=== PATIENT | male | born 1950 | race Caucasian/White ===

== ENCOUNTER → 2019-04-29 13:51 | Outpatient (BNVA) | payer MEDICARE, SELFPAY | PROVIDERS: PCP Physician Assistant; Visit Provider Nurse Practitioner | DX: G89.29 Other chronic pain (principal); M54.42 Lumbago with sciatica, left side; F17.210 Nicotine dependence, cigarettes, uncomplicated; Z79.891 Long term (current) use of opiate analgesic | CPT/HCPCS: 99213; 99214 ==

== ENCOUNTER 2019-07-08 16:40 | Emergency (ER) | payer MEDICARE, MEDICAID, SELFPAY ==
[2019-07-08 16:46] VITALS: BP 152/87; PULSE 68; RESP 16; TEMP 36.6; O2SAT 98; BMI 27.4
[2019-07-08 17:06] VITALS: O2SAT 97
--- NOTE | 2019-07-08 17:14 | ED_ITS ---
HPI - Anxiety General: Chief Complaint: Anxiety Stated Complaint: SOB/nausea Time Seen by Provider: 07/08/19 17:09 History of Present Illness: HPI narrative: Is a 68-year-old male who comes into the ED with anxiety and back pain. Patient's back pain is a chronic issue and is in his lower back. Patient said he has not taken anything for his back pain today. He is also complaining of feeling anxious and is reported having trouble getting sleep at night. His anxiousness started 4 days ago. Patient has been prescribed trazodone by his PCP to help him with sleep and he says that has not been working. He says he gets more anxious as he continues having trouble to get sleep at night. He says he paces around a lot at night and just does not feel tired. I asked him if he feels any worries or concerns or stress going on his life and he denied all of those. He says he is unsure what is making him feel anxious. Patient also reports feeling irritable. Associated symptoms: Deny chest pain, chills, fever(s), headache(s), nausea, palpitations or vomiting Review of Systems Const: Denies: fever, chills or fatigue Eyes: Denies: change in vision or eye discomfort ENMT: Denies: throat pain, painful swallowing, nasal discharge or nasal congestion Card: Denies: chest pain, palpitations, edema, swelling of feet/ankles, shortness of breath on exertion or shortness of breath when lying down Resp: Denies: shortness of breath, productive cough or non-productive cough GI: Denies: abdominal pain, nausea, vomiting, diarrhea, constipation or blood in stool : Denies: flank pain, difficulty urinating, painful urination or blood in urine Musc: Reports: back pain; Denies: neck pain or extremity swelling Skin/Breast: Denies: rash or new lesion Neuro: Denies: headache, numbness in extremities or weakness in extremities Psych: Reports: anxiety PFSH ED PFSH: Medical History Arthritis Chronic low back pain Long-term use of high-risk medication Continue to monitor use Tobacco abuse counselled to quit smoking Surgical History History of appendectomy History of spinal surgery 25 years ago l4/5 fusion per pt Family History Father Stroke Other Hypertension Social History Smoking and tobacco status: current some day smoker cigarettes [ Other cigarette details: 1 PK WEEK ] Alcohol intake: former Desire information about substance/drug rehabilitation?: No Physical Exam Narrative: EXAM NARRATIVE: Pt is a 68 y/o M that is sitting comfortably in the bed when I entered the room. He is showing no signs of acute respiratory distress or pain. Const: COMMON NORMALS: oriented x3 HENMT: COMMON NORMALS: normocephalic HEAD & SCALP: normocephalic MOUTH: oral and palatal mucosa normal THROAT: posterior oropharynx normal and uvula midline Neck/C-Spine: COMMON NORMALS: supple GENERAL: Yes normal visual inspection Resp: COMMON NORMALS: normal respiratory effort, no retractions, no use of accessory muscles and clear to auscultation bilaterally AUSCULTATION: clear to auscultation bilaterally Cardio: COMMON NORMALS: regular rate, regular rhythm, S1 normal heart sound, S2 normal heart sound, no gallops, no clicks, no murmurs and peripheral pulses 2+ throughout RATE: regular rate RHYTHM: regular rhythm HEART SOUNDS: S1 normal and S2 normal PERIPHERAL PULSES: pulses 2+ throughout GI: COMMON NORMALS: normal to inspection, nondistended, normoactive bowel sounds, soft to palpation, non-tender and no masses PALPATION: Yes soft : COMMON NORMALS: Yes no CVA tenderness BLADDER/KIDNEY EXAM: Yes no CVA tenderness Back/Pelvis: COMMON NORMALS: no CVA tenderness LUMBAR SPINE/LOWER BACK: Yes paraspinal muscle tenderness Extremity: COMMON NORMALS: normal to inspection Neuro: COMMON NORMALS: oriented x3 and moves all extremities Psych: COMMON NORMALS: mental status grossly normal, thought process normal and speech normal APPEARANCE: Yes grossly normal ATTITUDE: Yes calm ACTIVITY/MOTOR BEHAVIOR: Yes appropriate eye contact SPEECH: Yes normal speech THOUGHT PROCESS: normal thought process THOUGHT CONTENT: Yes normal thought content ATTENTION/CONCENTRATION: Yes attention grossly intact and Yes concentration grossly intact JUDGEMENT: judgment good Skin: COMMON NORMALS: no rashes or lesions noted GENERAL SKIN EXAM: no rashes or lesions noted and dry skin Course ED course: I spoke with patient about his current symptoms of anxiety and lack of sleep. I discussed with him that for the anxiety, exercise daily has been proven to help anxiety symptoms. I told him that since his anxiety is only started 4 days ago I'm hesitant to start him on any new medication. I told him if he continues to have anxiety component with his primary care doctor for possible medical management. For patient's sleep issues he is currently being prescribed trazodone to help with insomnia. I told him that I did not want to mess with his current medication and dose since other medications for sleep would put him at more risk for falls. I told him to contact his PCP tomorrow to discuss either stopping the trazodone dose or another medication management for his sleep issues. I told him I do not feel comfortable changing or adjusting his current sleep medication since I don't have appropriate follow-up with patient here in the ED. Patient understood and agreed with plan. Reevaluation(s): Reevaluation #1: After patient was given a dose of Toradol and Lorazepam I checked back in with him. Patient said his back pain has improved and his anxiety has improved. Vital Signs: Vital signs: Vital Signs Temperature 98 F 07/08/19 16:46 Pulse Rate 68 07/08/19 18:17 Respiratory Rate 17 07/08/19 18:17 Blood Pressure 126/74 07/08/19 18:17 Pulse Oximetry 97 07/08/19 18:17 Discharge Plan Discharge Patient Disposition: Home, Self-Care Clinical Impression: Acute anxiety Chronic low back pain Qualifiers: Back pain laterality: bilateral Sciatica presence: without sciatica Qualified Code(s): M54.5 - Low back pain Condition: Stable Prescriptions: No Action hydrocodone-acetaminophen 7.5-325 mg tablet 1 tab PO TID PRN (Reason: pain) 30 Days Qty: 90 RF: 0 methotrexate sodium 2.5 mg tablet 2.5 mg PO .COMPLEX RF: 0 folic acid 1 mg tablet 1 mg PO DAILY RF: 0 amlodipine 10 mg tablet 10 mg PO DAILY RF: 0 metoprolol succinate 50 mg capsule,sprinkle,ER 24hr 50 mg PO DAILY RF: 0 lisinopril 10 mg tablet 10 mg PO DAILY RF: 0 trazodone 50 mg Tablet 50 mg PO BEDTIME RF: 0 Discharge Orders: Discharge Order (Routine); Ordered 07/08/19 Ordered By: Quentin Kilgore Referrals: Loni Che PA [Primary Care Provider] - Discharge Diet: Regular Discharge Activity: Resume usual activity Patient Instructions: Anxiety (ED) Activity Restrictions/Additional Instructions: Follow-up with your PCP in 5 to 7 days reevaluation. I am not starting you on any new medications since you are already taking something for sleep that was prescribed by PCP. I recommend calling your PCP tomorrow and discussing the dosing of your trazodone. For anxiety daily exercise has been shown to really help with symptoms. Walking 20 to 30 minutes a day 4 to 5 days a week. Continue taking all home meds as previously prescribed. Discharge Date/Time: 07/08/19 18:22 Coding Level of Care Code ED Senior Financial Accountant for Ed Fwd Exam Comprehensive
[2019-07-08] MEDS: ketorolac 30 mg/mL INJ IVP (17:37)
[2019-07-08] MEDS: LORazepam 2 mg/mL INJ 1 mL 1 MG IVP (17:37)
[2019-07-08 18:17] VITALS: BP 126/74; PULSE 68; RESP 17; O2SAT 97
== END 2019-07-08 18:22 | disposition home or self-care (01) ==
PROVIDERS: Emergency Provider Physician Assistant; PCP Physician Assistant
DX: F41.9 Anxiety disorder, unspecified (principal); M54.5 Low back pain; F17.210 Nicotine dependence, cigarettes, uncomplicated
CPT/HCPCS: 12345; 96374; 96375; 99282; 99283; J1885; J2060

== ENCOUNTER 2019-08-30 13:58 | Outpatient (CLI) | payer MEDICARE, MEDICAID, SELFPAY ==
--- NOTE | 2019-08-30 14:06 | XR_ITS ---
WS: [id number] LUMBAR SPINE FLEXION AND EXTENSION TECHNIQUE: 3 views of the lumbar spine: Lateral neutral, flexion, and extension views. CLINICAL INFORMATION: POSTLAMINECTOMY SYNDROME COMPARISON: None. FINDINGS: Osteopenia. Aortic calcification. Prior postoperative changes pedicle screw fixation with dorsal inst rumentation at L4-S1. Interconnecting rods. No evidence of hardware loosening. Hardware appears gross ly intact. No instability on flexion-extension. XR/XR lumbar spine f/e only [id number] IMPRESSION: Prior postoperative changes pedicle screw fixation L4-S1 with dorsal interconne cting rods. No instability on flexion-extension.
== END 2019-08-30 13:59 | disposition home or self-care (01) ==
LOC: RADWPI 14:01
PROVIDERS: PCP Physician Assistant; Visit Provider Nurse Practitioner
DX: M96.1 Postlaminectomy syndrome, not elsewhere classified (principal)
CPT/HCPCS: 72120

== ENCOUNTER 2020-02-11 19:36 | Emergency (ER) | payer MEDICARE, MEDICAID, SELFPAY ==
[2020-02-11] VITALS (8 sets, daily range): BP systolic 123–179; BP diastolic 79–98; PULSE 68–82; RESP 13–24; TEMP 36.5; O2SAT 97–100; BMI 26.9
--- NOTE | 2020-02-11 19:46 | PC.NURSE ---
EKG done at 1947 and shown to ER doctor
--- NOTE | 2020-02-11 19:50 | XRR_ITS ---
PROCEDURE INFORMATION: Exam: XR Chest, 1 View Exam date and time: 02/11/2020 8:07 PM Age: 69 years old Clinical indication: Prior surgery; Surgery type: Appy, back; Patient HX: Chest pain, SOB, chills; Additional info: Cp TECHNIQUE: Imaging protocol: XR of the chest Views: 1 view. COMPARISON: CR Chest 1 [place] [id number] 02/02/2019 1:36 AM FINDINGS: Lungs: No consolidation. Pleural space: No pleural effusion. No pneumothorax. Heart/Mediastinum: No cardiomegaly. Vasculature: The thoracic aorta is mildly atherosclerotic. Bones/joints: Unremarkable. XR/XR chest 1V portable [id number] IMPRESSION: 1. No acute cardiopulmonary disease demonstrated. 2. There is no interval change from the prior examination.
--- NOTE | 2020-02-11 19:50 | ECG_ITS ---
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 Measurements Intervals [place] Rate: 70 P: 31 [place]: 197 QRS: 51 QRSD: 85 T: 73 QT: 378 QTc: 410 Interpretive Statements SINUS RHYTHM NONSPECIFIC T-WAVE ABNORMALITY Compared to ECG 02/11/2020 19:44:34 No significant changes Electronically Signed On 02-12-2020 22:08:04 CDT by Josie Meyer M.D. [id number]
[2020-02-11 20:07] LABS: Basophils % 0.3 %; Eosinophils % 0.2 %; Hematocrit 36.7 % (42.0-52.0); Hemoglobin 11.5 g/dL (11.7-16.6); Lymphocytes # 1.5 10^3/uL (0.8-4.8); Lymphocytes % 23.4 %; Mean Corpuscular HGB Conc 31.3 g/dL (30.0-36.0); Mean Corpuscular Hemoglobin 25.1 pg (28.0-34.0); Mean Platelet Volume 10.3 fL (7.4-10.4); Monocytes # 0.3 10^3/uL (0.2-0.9); Monocytes % 5.3 %; Neutrophils # 4.37 10^3/uL (1.8-7.7); Neutrophils % 70.6 %; Nucleated Red Blood Cells % 0 %; Platelet Count 327 10^3/cmm (130-400); Red Blood Count 4.59 10^6/uL (4.1-5.3); Red Cell Distribution Width 14.6 % (12.1-15.1); White Blood Count 6.2 10^3/uL (4.0-10.0)
[2020-02-11 20:30] LABS: Troponin(5th) Baseline 14 ng/L (0-15)
[2020-02-11 20:37] LABS: Alanine Aminotransferase 11 U/L (0-41); Albumin Level 4.1 g/dL (3.5-5.2); Alkaline Phosphatase 162 IU/L (40-130); Blood Urea Nitrogen 20 mg/dL (8-23); Calcium 8.8 mg/dL (8.5-10.5); Carbon Dioxide 21 mmol/L (22-29); Chloride 98 mmol/L (98-107); Creatine Phosphokinase 56 U/L (39-308); Globulin 3.4 g/dL (1.3-4.6); Glomerular Filtration Rate 43.1 mL/min (90-130); Glucose 141 mg/dL (65-115); NT Pro B Type Natriuretic Pept 50 pg/mL (0-125); Osmolality Calculated 281 mOsm/kg (285-295); Sodium 133 mmol/L (136-145); Total Bilirubin 0.4 mg/dL (0.15-1.2); Total Protein 7.5 g/dL (6.6-8.7)
[2020-02-11] MEDS: morphine 4 mg/mL SDV 1 mL IVP (20:38)
[2020-02-11] MEDS: ondansetron 2 mg/ML SDV 2 mL 4 MG IVP (20:39)
[2020-02-11 20:50] LABS: Anion Gap 18.4 (5-19); Aspartate Amino Transferase 23 U/L (0-40); Potassium 4.4 mmol/L (3.5-5.1)
--- NOTE | 2020-02-11 21:50 | ECG_ITS ---
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 Measurements Intervals [place] Rate: 78 P: 15 [place]: 176 QRS: 57 QRSD: 97 T: 68 QT: 369 QTc: 421 Interpretive Statements SINUS RHYTHM NONSPECIFIC T-WAVE ABNORMALITY Compared to ECG 02/02/2019 01:34:30 T-wave abnormality now present Electronically Signed On 02-11-2020 20:41:16 CDT by Shauna Gunter M.D. [id number]
--- NOTE | 2020-02-11 21:52 | PC.NURSE ---
EKG done at 2150 and shown to ER doctor
--- NOTE | 2020-02-12 00:28 | W.ED.CHESTPA ---
HPI - Chest Pain General: Chief Complaint: Chest Pain Stated Complaint: chest pain Time Seen by Provider: 02/11/20 19:47 History of Present Illness: HPI narrative: 69-year-old male presents with some chest discomfort. Mild shortness of breath. He has been nauseated and vomiting. He was here earlier in the day complaining of some anxiety. He states his chest pain started a few hours prior to arrival. He also notes that he stopped taking hydrocodone 2 days ago, which he took 4 times daily for quite some time prior. He wonders if some of the symptoms could be narcotic withdrawal. MD complaint: chest pain Onset (ago): hour(s) Timing of current episode: constant Prior episodes: Yes Onset: during rest Pain location: substernal Pain radiation: none Severity: moderate Quality: tightness and heaviness Relieving factors: nothing Exacerbating factors: nothing Associated symptoms: Reports abdominal pain, diaphoresis and vomiting; Deny dyspnea, fever(s) or palpitations Review of Systems Const: Reports: diaphoresis; Denies: fever(s) Eyes: Denies: change in vision ENMT: Denies: odynophagia, post nasal drip or sinus pain Card: Reports: chest pain; Denies: palpitations, irregular heart rhythm or edema Resp: Denies: dyspnea GI: Reports: abdominal pain and vomiting : Denies: difficulty urinating, dysuria or hematuria Musc: Denies: neck pain or joint warmth Skin/Breast: Denies: rash, pruritus or erythema Neuro: Denies: headache(s), dizziness, vertigo or seizure-like activity Psych: Denies: anxiety PFS ED PFSH: Medical History (Updated 02/11/20 @ 23:01 by Jamal Mcdonald DO) Arthritis Chronic low back pain Long-term use of high-risk medication Continue to monitor use Tobacco abuse counselled to quit smoking Surgical History History of appendectomy History of spinal surgery 25 years ago l4/5 fusion per pt Family History Father Stroke Other Hypertension Social History Smoking and tobacco status: current some day smoker cigarettes [ Other cigarette details: 1 PK WEEK ] Alcohol intake: former Desire information about substance/drug rehabilitation?: No Physical Exam Const: GENERAL APPEARANCE: disheveled, ill appearing and diaphoretic ORIENTATION/CONSCIOUSNESS: Yes oriented to person, Yes oriented to place and Yes oriented to time HENMT: COMMON NORMALS: normocephalic, external ears normal and Normal external nose present HEAD & SCALP: normocephalic FACE & SINUS: normal facial exam NOSE: Normal external nose present EXTERNAL EAR: Yes external ears normal MOUTH: tongue normal Eye: COMMON NORMALS: Equal, round and reactive pupils present, EOMs intact bilaterally and conjunctivae normal EYELID: eyelids normal CONJUNCTIVA: Yes conjunctivae normal PUPIL: Yes Equal, round and reactive pupils present Neck/C-Spine: GENERAL: No tracheal deviation Chest: COMMONS NORMALS: normal inspection of the chest CHEST: No tenderness Resp: COMMON NORMALS: clear to auscultation bilaterally EFFORT & INSPECTION: No tachypneic, No respiratory distress, No retractions, No uses accessory muscles and No tracheal deviation AUSCULTATION: clear to auscultation bilaterally, no rhonchi, no wheezes and lung sounds not diminished Cardio: COMMON NORMALS: regular rate and regular rhythm RATE: regular rate RHYTHM: regular rhythm HEART SOUNDS: no murmurs PERIPHERAL PULSES: radial pulses present GI: INSPECTION: No abdominal distension AUSCULTATION: No Hyperactive bowel sounds present and No Hypoactive bowel sounds present PALPATION: No Guarding due to palpation present (GI) and No Rigid due to palpation PERCUSSION: no dullness to percussion and no tympanic to percussion Neuro: SENSORIUM/ORIENTATION: Yes oriented to person, Yes oriented to place and Yes oriented to time Psych: COMMON NORMALS: mental status grossly normal Skin: COMMON NORMALS: no rashes or lesions noted GENERAL SKIN EXAM: no rashes or lesions noted Course Vital Signs: Vital signs: Vital Signs Temperature 97.7 F 02/11/20 19:38 Pulse Rate 69 02/11/20 23:11 Respiratory Rate 13 02/11/20 22:30 Blood Pressure 123/83 02/11/20 23:11 Pulse Oximetry 98 02/11/20 23:11 MDM - Chest Pain MDM Narrative: Medical decision making narrative: EKG shows no acute ST changes. Chest x-ray is negative. Troponin is negative. Hemoglobin is 11.5. Bicarbonate is 21. His creatinine is 1.6, which is at his baseline. This patient symptoms were much improved after morphine. I do believe he is experiencing narcotic withdrawal. He will be discharged on a tapering dose of hydrocodone. This was gone over with him extensively to take the medication in a manner which would reduce withdrawal symptoms significantly. Lab Data: Labs: Lab Results 02/11/20 02/11/20 02/11/20 Range/Units 20:00 20:00 20:00 WBC 6.2 (4.0-10.0) 10^3/ uL RBC 4.59 (4.1-5.3) 10^6/u L Hgb 11.5 L (11.7-16.6) g/dL Hct 36.7 L (42.0-52.0) % MCV 80.0 (80-94) fL MCH 25.1 L (28.0-34.0) pg MCHC 31.3 (30.0-36.0) g/dL RDW 14.6 (12.1-15.1) % Plt Count 327 (130-400) 10^3/c mm MPV 10.3 (7.4-10.4) fL Neut % (Auto) 70.6 % Lymph % (Auto) 23.4 % Trigg % (Auto) 5.3 % Eos % (Auto) 0.2 % Baso % (Auto) 0.3 % Neut # (Auto) 4.37 (1.8-7.7) 10^3/u L Lymph # (Auto) 1.5 (0.8-4.8) 10^3/u L Trigg # (Auto) 0.3 (0.2-0.9) 10^3/u L Eos # (Auto) 0.0 (0.0-0.8) 10^3/u L Baso # (Auto) 0.0 (0.0-0.1) 10^3/u L Nucleated RBC % (a uto) 0 % Nucleated RBCs # 0.0 /100WBC Sodium 133 L (136-145) mmol/L Potassium 4.4 (3.5-5.1) mmol/L Chloride 98 (98-107) mmol/L Carbon Dioxide 21 L (22-29) mmol/L Anion Gap 18.4 (5-19) BUN 20 (8-23) mg/dL Creatinine 1.6 H (0.7-1.2) mg/dL GFR Calculation 43.1 L (90-130) mL/min Glucose 141 H (65-115) mg/dL Calculated Osmolal ity 281 L (285-295) mOsm/k g Calcium 8.8 (8.5-10.5) mg/dL Total Bilirubin 0.4 (0.15-1.2) mg/dL AST 23 (0-40) U/L ALT 11 (0-41) U/L Alkaline Phosphata se 162 H (40-130) IU/L Creatine Kinase 56 (39-308) U/L Troponin T Baselin e 14 (0-15) ng/L NT-Pro-B Natriuret Pep 50 (0-125) pg/mL Total Protein 7.5 (6.6-8.7) g/dL Albumin 4.1 (3.5-5.2) g/dL Globulin 3.4 (1.3-4.6) g/dL Discharge Plan Discharge Patient Disposition: Home Clinical Impression: Acute opioid withdrawal Chest pain Qualifiers: Chest pain type: unspecified Qualified Code(s): R07.9 - Chest pain, unspecified Condition: Stable Prescriptions: Continued hydrocodone-acetaminophen 7.5-325 mg tablet 1 tab PO TID PRN (Reason: pain) 30 Days Qty: 15 RF: 0 No Action methotrexate sodium 2.5 mg tablet 2.5 mg PO .COMPLEX RF: 0 folic acid 1 mg tablet 1 mg PO DAILY RF: 0 amlodipine 10 mg tablet 10 mg PO DAILY RF: 0 metoprolol succinate 50 mg capsule,sprinkle,ER 24hr 50 mg PO DAILY RF: 0 lisinopril 10 mg tablet 10 mg PO DAILY RF: 0 trazodone 50 mg Tablet 50 mg PO BEDTIME RF: 0 Discharge Orders: Discharge Order (Routine); Ordered 02/11/20 Ordered By: Jamal Mcdonald Referrals: Loni Che PA [Primary Care Provider] - Discharge Diet: Advance as tolerated Discharge Activity: Increase activity as tolerated Patient Instructions: Chest Pain (ED), Opioid Withdrawal (ED) Activity Restrictions/Additional Instructions: Take your pain medications in a tapering fashion. Take 3 daily for 2 days, 2 daily for 2 days, 1 daily for 3 days. Return for repeated episodes of chest pain despite treatment, shortness of breath, fever, other concerning symptoms. Discharge Date/Time: 02/11/20 23:17 Coding Level of Care Code ED Medical Accounts Receivable Specialist for Chg Fwd Exam Comprehensive
== END 2020-02-11 23:17 | disposition home or self-care (01) ==
PROVIDERS: Emergency Provider Emergency Medicine; PCP Physician Assistant
DX: R07.9 Chest pain, unspecified (principal); F11.23 Opioid dependence with withdrawal; F17.210 Nicotine dependence, cigarettes, uncomplicated
CPT/HCPCS: 12345; 71045; 80053; 82550; 83880; 84484; 85025; 93005; 96374; 96375; 99283; J2270; J2405

== ENCOUNTER → 2020-03-10 10:12 | Outpatient (BNVA) | payer MEDICARE, MEDICAID, SELFPAY | PROVIDERS: PCP Physician Assistant; Visit Provider Internal Medicine | DX: M05.9 Rheumatoid arthritis with rheumatoid factor, unspecified (principal); Z79.899 Other long term (current) drug therapy; Z11.59 Encounter for screening for other viral diseases; Z11.1 Encounter for screening for respiratory tuberculosis; M19.90 Unspecified osteoarthritis, unspecified site; M54.5 Low back pain; G89.29 Other chronic pain; M10.9 Gout, unspecified | CPT/HCPCS: 99213 ==

== ENCOUNTER 2020-03-10 12:41 | Outpatient (CLI) | payer MEDICARE, MEDICAID, SELFPAY ==
--- NOTE | 2020-03-10 12:56 | XR_ITS ---
WS: [id number] Exam: XR foot RT 2V [id number] Date/Time of Exam: 03/10/2020 1:24 PM Reason For Exam: M25.50 - Pain in unspecified joint No acute fracture or dislocation. Degenerative changes of the IP joints and first MP joint. Small pos terior heel spur. Small calcifications in the plantar soft tissues of the foot. XR/XR foot RT 2V [id number] IMPRESSION: 1. No fracture or dislocation. 2. Degenerative changes and small posterior heel spur.
--- NOTE | 2020-03-10 12:56 | XR_ITS ---
WS: [id number] Exam: XR hand RT 2V [id number] Date/Time of Exam: 03/10/2020 12:56 PM Reason For Exam: M19.90 - Unspecified osteoarthritis, unspecified site No acute fracture or dislocation. Degenerative changes of the IP and MP joints. Moderately advanced d egenerative change at the radiocarpal joint. Ulnar abutment. No soft tissue foreign bodies identified . XR/XR hand RT 2V [id number] IMPRESSION: 1. Degenerative changes of the IP and MP joints. No fracture or dislocation. 2. Moderately advanced degenerative changes at the wrist involving the radiocar pal joint and the intercarpal articulations. Ulnar abutment.
--- NOTE | 2020-03-10 12:56 | XR_ITS ---
WS: [id number] LEFT FOOT: 2 VIEW(S) TECHNIQUE: AP and lateral. HISTORY: M25.50 - Pain in unspecified joint COMPARISON: None available. No acute fracture or dislocation. Mild joint space narrowing at the first metatarsophalangeal joint. Mild osteopenia. No erosions. No soft tissue abnormality or bone destruction. XR/XR foot LT 2V [id number] IMPRESSION: Mild osteoarthritis at the first metatarsophalangeal joint. No erosions.
--- NOTE | 2020-03-10 12:56 | XR_ITS ---
WS: [id number] Exam: XR hand LT 2V [id number] Date/Time of Exam: 03/10/2020 12:56 PM Reason For Exam: M19.90 - Unspecified osteoarthritis, unspecified site No acute fracture or dislocation. Degenerative changes at the IP and MP joints. Moderately advanced d egenerative changes at the radiocarpal joint. No radiopaque soft tissue foreign bodies are seen. XR/XR hand LT 2V [id number] IMPRESSION: 1. Degenerative changes. 2. No fracture or dislocation.
[2020-03-10 13:40] LABS: C Reactive Protein 9.5 mg/L (0.0-4.9); Uric Acid 9.2 mg/dL (3.4-7.0)
[2020-03-10 13:55] LABS: Erythrocyte Sedimentation Rate 62 mm/hr (0-10)
[2020-03-10 14:15] LABS: Hepatitis B Core AB, Total Non-Reactive (Nonreactive); Hepatitis B Surface Antigen Non-Reactive (Nonreactive); Hepatitis C Virus Antibody Non-Reactive (Nonreactive)
[2020-03-13 13:48] LABS: Cyclic Citrullinated Peptide <16 UNITS; Quantiferon Mitogen >10.00 IU/mL; Quantiferon Nil 0.04 IU/mL; Quantiferon Plus TB2 <0.00 IU/mL; Quantiferon TB Gold NEGATIVE (NEGATIVE)
== END 2020-03-10 12:42 | disposition home or self-care (01) ==
LOC: RAD 12:55
PROVIDERS: PCP Physician Assistant; Visit Provider Internal Medicine
DX: D86.9 Sarcoidosis, unspecified (principal); M32.9 Systemic lupus erythematosus, unspecified; Z51.81 Encounter for therapeutic drug level monitoring; M19.072 Primary osteoarthritis, left ankle and foot
CPT/HCPCS: 36415; 73120; 73620; 84550; 85651; 86140; 86480; 86704; 86803; 87340

== ENCOUNTER 2020-06-13 20:09 | Emergency (ER) | payer MEDICARE, MEDICAID, SELFPAY ==
[2020-06-13 20:23] VITALS: BP 139/74; PULSE 95; RESP 18; TEMP 36.3; O2SAT 98; BMI 25.0
[2020-06-13] MEDS: clindamycin 150 mg Capsule 300 MG PO (21:19)
--- NOTE | 2020-06-13 21:35 | ED_ITS ---
HPI - Dental/Oral General: Chief complaint: Dental/Oral Stated complaint: dental pain Time Seen by Provider: 06/13/20 20:32 Source: patient Mode of arrival: ambulatory Limitations: no limitations History of Present Illness: HPI Narrative: 69-year-old male patient presents to the emergency department with dental pain and swelling to the left lower gumline x2 days. He reports history of dental infection in the past. He reports ibuprofen not helping, states ibuprofen is upsetting his stomach. He denies difficulty breathing or swelling under the chin. He does not have a den tistJt [place] Complaint: tooth pain Teeth map: 1. Onset (ago): day(s) (2) Duration: constant Severity: moderate Severity scale (1-10): 7 Relieving factors: nothing Exacerbating factors: chewing and cold Context: history of dental caries and poor dental care Associated symptoms: Reports gum swelling; Denies fever(s) Treatment prior to arrival: other (Ibuprofen) Review of Systems General: Reports: 10 or more systems reviewed and unremarkable except in HPI and below Const: Denies: fever(s), chills or diaphoresis Eyes: Denies: blurry vision, eye discomfort or eye redness ENMT: Reports: dental pain; Denies: throat pain, uvular edema, change in hearing or disequilibrium Card: Denies: chest pain, palpitations or irregular heart rhythm Resp: Denies: dyspnea, productive cough, non-productive cough or wheezing GI: Denies: abdominal pain, nausea or vomiting : Denies: dysuria Musc: Denies: back pain Skin/Breast: Denies: rash or pruritus Neuro: Denies: headache(s), weakness in extremities or behavioral changes Psych: Denies: anxiety, depression or change in appetite J Carlos/Lymph: Denies: easy bruising [facility] ED PFSH: Medical History (Updated 06/13/20 @ 21:42 by RUCHI Easley) Arthritis Chronic low back pain Long-term use of high-risk medication Continue to monitor use Tobacco abuse counselled to quit smoking Surgical History History of appendectomy History of spinal surgery 25 years ago l4/5 fusion per pt Family History Father Stroke Other Hypertension Social History Smoking and tobacco status: current some day smoker cigarettes [ Other cigarette details: 1 PK WEEK ] Alcohol intake: former Desire information about substance/drug rehabilitation?: No Physical Exam Const: COMMON NORMALS: no acute distress, patient oriented x3, alert and well nourished EXAM LIMITATIONS: no altered mental status and no physical limitations GENERAL APPEARANCE: cooperative and well hydrated; not comfortable, not anxious, not combative and not ill appearing NUTRITIONAL APPEARANCE: thin ORIENTATION/CONSCIOUSNESS: Yes awake, Yes oriented to person, Yes oriented to place and Yes oriented to time HENMT: COMMON NORMALS: normocephalic, external ears normal, TM's normal bilaterally, Normal external nose present and moist oral mucous membranes HEAD & SCALP: normocephalic FACE & SINUS: normal facial exam and face symmetric NOSE: Normal external nose present EXTERNAL EAR: Yes external ears normal TYMPANIC MEMBRANE: TM's normal bilaterally MOUTH: lip normal, tongue normal, Normal salivary glands and ducts present and other (Negative sublingual swelling, Letha's angina) TEETH & GINGIVA: Yes abnormal tooth and associated gingiva lower left tender and avulsed (Chronic) TEETH & GINGIVA IMAGES: 1. Dental avulsion, chronic present, gumline edema and swelling. Suspicious for dental abscess THROAT: uvula midline; no uvular edema Eye: COMMON NORMALS: Equal, round and reactive pupils present and EOMs intact bilaterally GENERAL EYE: appearance normal, both eyes and all related structures PUPIL: Yes Equal, round and reactive pupils present Neck/C-Spine: COMMON NORMALS: full ROM, no lymphadenopathy and supple GENERAL: Yes normal visual inspection and Yes trachea midline CERVICAL SPINE: Yes cervical ROM normal Lymph: LYMPHATIC: no lymphadenopathy noted Chest: COMMONS NORMALS: normal inspection of the chest and normal palpation of entire chest wall CHEST: No localized rib tenderness with anteroposterior compression Resp: COMMON NORMALS: normal respiratory effort, No retractions, No use of accessory muscles and clear to auscultation bilaterally EFFORT & INSPECTION: Yes able to speak in complete sentences, No respiratory distress, No pursed lip breathing and No labored AUSCULTATION: clear to auscultation bilaterally Cardio: COMMON NORMALS: regular rate, regular rhythm, S1 normal heart sound present, S2 normal heart sound present and Peripheral pulses 2+ throughout RATE: regular rate RHYTHM: regular rhythm HEART SOUNDS: S1 normal heart sound present and S2 normal heart sound present PERIPHERAL PULSES: Peripheral pulses 2+ throughout GI: COMMON NORMALS: Normal to inspection, nondistended, normoactive bowel sounds present, Soft to palpation and non-tender INSPECTION: Yes normal to inspection PALPATION: Yes Soft to palpation : COMMON NORMALS: Yes no CVA tenderness BLADDER/KIDNEY EXAM: Yes no CVA tenderness Back/Pelvis: COMMON NORMALS: no CVA tenderness and thoracic and lumbar spine normal to inspection Extremity: COMMON NORMALS: normal to inspection and capillary refill normal Neuro: COMMON NORMALS: patient oriented x3 and no focal motor deficits SENSORIUM/ORIENTATION: Yes alert, Yes oriented to person, Yes oriented to place and Yes oriented to time Psych: COMMON NORMALS: mental status grossly normal, Normal thought process present and cooperative ACTIVITY/MOTOR BEHAVIOR: Yes appropriate eye contact THOUGHT PROCESS: Normal thought process present Skin: COMMON NORMALS: no rashes or lesions noted and turgor normal GENERAL SKIN EXAM: no rashes or lesions noted and turgor normal Procedures Nerve Block Nerve Block 1: Local Anesthetic: lidocaine 1% and with epi Amount of anesthesia used (mL): 3 Side: left Intraoral Nerve Block: other (dental) Procedure Successful: Yes Patient Tolerated Procedure: well Complications: none Course Vital Signs: Vital signs: Vital Signs Temperature 97.4 F L 06/13/20 20:23 Pulse Rate 95 06/13/20 20:23 Respiratory Rate 18 06/13/20 20:23 Blood Pressure 139/74 06/13/20 20:23 Pulse Oximetry 98 06/13/20 20:23 Discharge Plan Discharge Patient Disposition: Home Clinical Impression: Dental abscess, Toothache, Dental caries Condition: Stable Prescriptions: New clindamycin HCl 300 mg capsule 300 mg PO QID 7 Days Qty: 28 RF: 0 Lidocaine Viscous 2 % solution 1.2 ml topical Q3H PRN (Reason: pain) Qty: 15 RF: 0 chlorhexidine gluconate 0.12 % mouthwash 15 ml buccal BID Qty: 118 RF: 0 No Action methotrexate sodium 2.5 mg tablet 2.5 mg PO .COMPLEX RF: 0 folic acid 1 mg tablet 1 mg PO DAILY RF: 0 lisinopril 10 mg tablet 10 mg PO DAILY RF: 0 prednisone 5 mg tablet See Rx Instructions PO DAILY Qty: 60 RF: 0 trazodone 50 mg Tablet 50 mg PO BEDTIME RF: 0 Discharge Orders: Discharge ED (Routine); Ordered 06/13/20 Ordered By: Rubi Landry Referrals: Loni Che PA [Primary Care Provider] - Discharge Diet: GI Soft Discharge Activity: Resume usual activity Patient Instructions: Dental Abscess (ED), Dental Caries (ED), Toothache (ED), Opioid Safety Activity Restrictions/Additional Instructions: Swish and spit several times daily with salt water Use prescribed mouthwash, chlorhexidine, swish and spit twice daily for 7 days Follow-up with a dental provider within the next 7 days without fail, failure to do so can cause further infection and pain. A list of dental providers have been given to you Return to the emergency department if you develop difficulty breathing, difficulty swallowing or other concerning symptoms Take antibiotics until all gone Applied numbing medication prescribed to the affected area every 2 hours as needed, avoid chewing on the affected side. Coding Level of Care Code ED Brine Well Operator for Ed Fwd Exam Comprehensive
[2020-06-13] MEDS: HYDROcodone-acetaminophen 5-325 mg Tablet 1 TAB PO (22:07)
[2020-06-13 22:09] VITALS: PULSE 62; RESP 18; O2SAT 96
== END 2020-06-13 22:11 | disposition home or self-care (01) ==
PROVIDERS: Emergency Provider Nurse Practitioner Family; PCP Physician Assistant
DX: K04.7 Periapical abscess without sinus (principal); K02.9 Dental caries, unspecified; F17.210 Nicotine dependence, cigarettes, uncomplicated
CPT/HCPCS: 99283

== ENCOUNTER → 2020-06-15 13:46 | Outpatient (BNVA) | payer MEDICARE, MEDICAID, SELFPAY | PROVIDERS: PCP Physician Assistant; Visit Provider Internal Medicine | DX: M05.9 Rheumatoid arthritis with rheumatoid factor, unspecified (principal); Z79.899 Other long term (current) drug therapy; K08.89 Other specified disorders of teeth and supporting structures; F17.210 Nicotine dependence, cigarettes, uncomplicated | CPT/HCPCS: 36415; 80053; 85025; 85651; 86140; 99214 ==

== ENCOUNTER 2020-07-01 15:21 | Emergency (ER) | payer MEDICARE, MEDICAID, SELFPAY ==
[2020-07-01 15:35] VITALS: BP 168/89; PULSE 70; RESP 18; TEMP 36.7; O2SAT 98; BMI 30.2
[2020-07-01 15:44] VITALS: BP 168/89; PULSE 82; O2SAT 100
--- NOTE | 2020-07-01 15:56 | XRR_ITS ---
PROCEDURE INFORMATION: Exam: XR Left Knee Exam date and time: 07/01/2020 4:00 PM Age: 69 years old Clinical indication: Pain; Knee; Left; Additional info: Pain effusions TECHNIQUE: Imaging protocol: XR Left knee. Views: 3 views. COMPARISON: No relevant prior studies available. FINDINGS: Bones/joints: Large suprapatellar joint effusion. Mild degenerative narrowing of the medial and lateral joint compartments. Mild degenerative chondrocalcinosis of the menisci. No fracture or other acute osseous abnormality. Soft tissues: The soft tissues appear unremarkable. XR/XR knee LT 3V* [id number] IMPRESSION: 1. Large suprapatellar joint effusion. 2. Mild degenerative arthritis of the medial and lateral joint compartments. 3. No acute fracture demonstrated.
[2020-07-01 16:04] LABS: Basophils # 0.1 10^3/uL (0.0-0.1); Basophils % 1.1 %; Eosinophils # 0.3 10^3/uL (0.0-0.8); Eosinophils % 3.4 %; Hematocrit 31.1 % (42.0-52.0); Hemoglobin 9.8 g/dL (11.7-16.6); Lymphocytes # 1.7 10^3/uL (0.8-4.8); Mean Corpuscular HGB Conc 31.5 g/dL (30.0-36.0); Mean Corpuscular Hemoglobin 26.8 pg (28.0-34.0); Mean Platelet Volume 9.7 fL (7.4-10.4); Monocytes # 0.6 10^3/uL (0.2-0.9); Monocytes % 6.6 %; Neutrophils # 6.27 10^3/uL (1.8-7.7); Neutrophils % 69.7 %; Nucleated Red Blood Cells % 0 %; Platelet Count 406 10^3/cmm (130-400); Red Blood Count 3.66 10^6/uL (4.1-5.3); Red Cell Distribution Width 15.7 % (12.1-15.1)
[2020-07-01] MEDS: dexamethasone 4 mg/mL INJ 10 MG IVP (16:12)
[2020-07-01 16:19] LABS: Alanine Aminotransferase 7 U/L (0-41); Albumin Level 3.2 g/dL (3.5-5.2); Alkaline Phosphatase 122 IU/L (40-130); Anion Gap 13.6 (5-19); Aspartate Amino Transferase 14 U/L (0-40); Blood Urea Nitrogen 15 mg/dL (8-23); C Reactive Protein 72.2 mg/L (0.0-4.9); Calcium 8.6 mg/dL (8.5-10.5); Carbon Dioxide 21 mmol/L (22-29); Chloride 104 mmol/L (98-107); Glomerular Filtration Rate 46.4 mL/min (90-130); Glucose 101 mg/dL (65-115); Osmolality Calculated 281 mOsm/kg (285-295); Potassium 3.6 mmol/L (3.5-5.1); Sodium 135 mmol/L (136-145); Total Bilirubin 0.2 mg/dL (0.15-1.2); Total Protein 7.2 g/dL (6.6-8.7)
--- NOTE | 2020-07-01 16:20 | W.ED.GENADLT ---
HPI - General Adult General: Chief complaint: General Medical Stated complaint: LEG PAIN, CANNOT WALK (FOR FEW DAYS) Time Seen by Provider: 07/01/20 15:40 History of Present Illness: HPI narrative: 69-year-old male presents emergency room with complaint of severe left knee pain and swelling that began 4 days ago. Is not had a fever at all patient is a history of rheumatoid arthritis he is currently on methotrexate Onset (ago): minute(s) Location: left and lower extremity (knee) Quality: aching Pain Consistency: constant Relieving factors: immobilization and rest Exacerbating factors: movement Associated symptoms: Deny chest pain, confusion, cough, diaphoresis, decreased appetite, dyspnea, fevers/chills, headache(s), malaise, nausea, rash, palpitations, seizures, short of breath, syncope, vomiting or weakness Treatments prior to arrival: none Review of Systems Const: Denies: malaise or diaphoresis ENMT: Denies: throat pain, ear or mastoid pain, nasal discharge or nasal congestion Card: Denies: chest pain, palpitations or syncope Resp: Denies: dyspnea GI: Denies: nausea or vomiting : Denies: flank pain, dysuria, urinary frequency or urinary urgency Skin/Breast: Denies: rash Neuro: Denies: headache(s) or confusion PFSH ED PFSH: Medical History Arthritis Chronic low back pain Long-term use of high-risk medication Continue to monitor use Tobacco abuse counselled to quit smoking Surgical History History of appendectomy History of spinal surgery 25 years ago l4/5 fusion per pt Family History Father Stroke Other Hypertension Social History Smoking and tobacco status: current some day smoker cigarettes [ Other cigarette details: 1 PK WEEK ] Alcohol intake: former Desire information about substance/drug rehabilitation?: No Physical Exam Const: COMMON NORMALS: no acute distress GENERAL APPEARANCE: cooperative and comfortable ORIENTATION/CONSCIOUSNESS: Yes awake, Yes oriented to person, Yes oriented to place and Yes oriented to time HENMT: COMMON NORMALS: normocephalic, atraumatic and hearing grossly normal bilaterally HEAD & SCALP: normocephalic and atraumatic Eye: COMMON NORMALS: Equal, round and reactive pupils present, EOMs intact bilaterally, conjunctivae normal and no scleral icterus CONJUNCTIVA: Yes conjunctivae normal PUPIL: Yes Equal, round and reactive pupils present Neck/C-Spine: COMMON NORMALS: full ROM, no lymphadenopathy, supple and no JVD Lymph: LYMPHATIC: no lymphadenopathy noted and no lymphedema noted Resp: COMMON NORMALS: normal respiratory effort, No retractions, No use of accessory muscles and clear to auscultation bilaterally AUSCULTATION: clear to auscultation bilaterally Cardio: COMMON NORMALS: no JVD, regular rate, regular rhythm and No murmurs present (Cardio) RATE: regular rate RHYTHM: regular rhythm GI: COMMON NORMALS: Soft to palpation and No hepatosplenomegaly present AUSCULTATION: Yes normoactive bowel sounds PALPATION: Yes Soft to palpation, No Tenderness to palpation present (GI), No Guarding due to palpation present (GI) and Yes No hepatosplenomegaly present Extremity: NARRATIVE EXTREMITY EXAM: Left knee has a large effusion exquisitely tender to touch with any motion even light touch is very tender. There is no erythema. No induration no abrasions. Neuro: SENSORIUM/ORIENTATION: Yes oriented to person, Yes oriented to place and Yes oriented to time Skin: COMMON NORMALS: no rashes or lesions noted GENERAL SKIN EXAM: no rashes or lesions noted Course Vital Signs: Vital signs: Vital Signs Temperature 98.1 F 07/01/20 15:35 Pulse Rate 82 07/01/20 17:34 Respiratory Rate 18 07/01/20 15:35 Blood Pressure 168/89 07/01/20 17:34 Pulse Oximetry 100 07/01/20 17:34 MDM - General Adult MDM Narrative: Medical decision making narrative: Large joint effusion no sign of infection suspect gouty arthritis will start on prednisone gave hydrocodone given his renal function will avoid nonsteroidals. Lab Data: Labs: Lab Results 07/01/20 07/01/20 07/01/20 Range/Units 16:00 16:00 16:00 WBC 9.0 (4.0-10.0) 10^3/ uL RBC 3.66 L (4.1-5.3) 10^6/u L Hgb 9.8 L (11.7-16.6) g/dL Hct 31.1 L (42.0-52.0) % MCV 85.0 (80-94) fL MCH 26.8 L (28.0-34.0) pg MCHC 31.5 (30.0-36.0) g/dL RDW 15.7 H (12.1-15.1) % Plt Count 406 H (130-400) 10^3/c mm MPV 9.7 (7.4-10.4) fL Neut % (Auto) 69.7 % Lymph % (Auto) 19.0 % [place] % (Auto) 6.6 % Eos % (Auto) 3.4 % Baso % (Auto) 1.1 % Neut # (Auto) 6.27 (1.8-7.7) 10^3/u L Lymph # (Auto) 1.7 (0.8-4.8) 10^3/u L [place] # (Auto) 0.6 (0.2-0.9) 10^3/u L Eos # (Auto) 0.3 (0.0-0.8) 10^3/u L Baso # (Auto) 0.1 (0.0-0.1) 10^3/u L Nucleated RBC % (a uto) 0 % Nucleated RBCs # 0.0 /100WBC ESR 116 H (0-10) mm/hr Sodium 135 L (136-145) mmol/L Potassium 3.6 (3.5-5.1) mmol/L Chloride 104 (98-107) mmol/L Carbon Dioxide 21 L (22-29) mmol/L Anion Gap 13.6 (5-19) BUN 15 (8-23) mg/dL Creatinine 1.5 H (0.7-1.2) mg/dL GFR Calculation 46.4 L (90-130) mL/min Glucose 101 (65-115) mg/dL Calculated Osmolal ity 281 L (285-295) mOsm/k g Calcium 8.6 (8.5-10.5) mg/dL Total Bilirubin 0.2 (0.15-1.2) mg/dL AST 14 (0-40) U/L ALT 7 (0-41) U/L Alkaline Phosphata se 122 (40-130) IU/L C-Reactive Protein 72.2 H (0.0-4.9) mg/L Total Protein 7.2 (6.6-8.7) g/dL Albumin 3.2 L (3.5-5.2) g/dL Globulin 4.0 (1.3-4.6) g/dL Discharge Plan Discharge Patient Disposition: Home Clinical Impression: Gout of left knee, Seropositive rheumatoid arthritis Condition: Stable Prescriptions: New prednisone 50 mg tablet 50 mg PO DAILY 5 Days Qty: 5 RF: 0 hydrocodone-acetaminophen 5-325 mg tablet 1 tab PO Q6H PRN (Reason: pain) Qty: 20 RF: 0 No Action diclofenac sodium [Voltaren Arthritis Pain] 1 % gel 2 g topical QID Qty: 100 RF: 2 methotrexate sodium 2.5 mg tablet 2.5 mg PO .COMPLEX RF: 0 folic acid 1 mg tablet 1 mg PO DAILY RF: 0 lisinopril 10 mg tablet 10 mg PO DAILY RF: 0 prednisone 5 mg tablet See Rx Instructions PO DAILY Qty: 60 RF: 0 trazodone 50 mg Tablet 50 mg PO BEDTIME RF: 0 Lidocaine Viscous 2 % solution 1.2 ml topical Q3H PRN (Reason: pain) Qty: 15 RF: 0 chlorhexidine gluconate 0.12 % mouthwash 15 ml buccal BID Qty: 118 RF: 0 Discharge Orders: Discharge ED (Routine); Ordered 07/01/20 Ordered By: Dorian Lagunas Referrals: Loni Che PA [Primary Care Provider] - Discharge Diet: Usual diet Discharge Activity: Limit activity as instructed Patient Instructions: Opioid Safety Activity Restrictions/Additional Instructions: Follow-up with your primary care doctor within the next week. Coding Level of Care Code ED Interactive Art Director for Ed Becerril
[2020-07-01 16:45] LABS: Erythrocyte Sedimentation Rate 116 mm/hr (0-10)
[2020-07-01 17:34] VITALS: BP 168/89; PULSE 82; O2SAT 100
== END 2020-07-01 17:34 | disposition home or self-care (01) ==
PROVIDERS: Emergency Provider Family Medicine; PCP Physician Assistant
DX: M10.9 Gout, unspecified (principal); M05.9 Rheumatoid arthritis with rheumatoid factor, unspecified; F17.210 Nicotine dependence, cigarettes, uncomplicated
CPT/HCPCS: 73562; 80053; 85025; 85651; 86140; 96374; 99283; J1100

== ENCOUNTER 2020-07-06 01:17 | Emergency (ER) | payer MEDICARE, MEDICAID, SELFPAY ==
[2020-07-06 01:35] VITALS: BP 186/111; PULSE 96; RESP 14; TEMP 36.6; O2SAT 100; BMI 27.4
[2020-07-06 01:40] VITALS: BP 186/111; PULSE 86; RESP 22; O2SAT 99
--- NOTE | 2020-07-06 01:40 | XR_ITS ---
WS: [id number] XR chest 1V portable [id number] REASON FOR EXAM: Vomiting FINDINGS: The chest is unchanged compared to previous examination of 02/11/2020. Moderate ectasia with mild dilatation of the thoracic aorta. Normal heart size. Calcified granulomatous changes in both hemithoraces. No active pulmonary parenchymal or pleural dise ase. Moderate changes of degenerative spondylosis in the mid and lower thoracic spine. XR/XR chest 1V portable [id number] IMPRESSION: No acute chest abnormality.
--- NOTE | 2020-07-06 01:40 | XR_ITS ---
WS: [id number] XR KUB portable [id number] REASON FOR EXAM: Vomiting FINDINGS: Unremarkable bowel gas pattern. No free air or retroperitoneal air. No calcification noted. No mass identified. Postsurgical instrumentation lower lumbar spine. No focal bony abnormality of the lumbar spine or pel vis. XR/XR KUB portable [id number] IMPRESSION: No acute abnormality.
--- NOTE | 2020-07-06 01:42 | ECG_ITS ---
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 Measurements Intervals [place] Rate: 75 P: 25 GA: 183 QRS: 39 QRSD: 88 T: 40 QT: 363 QTc: 408 Interpretive Statements SINUS RHYTHM Compared to ECG 02/11/2020 21:50:53 T-wave abnormality no longer present Electronically Signed On 07-07-2020 22:51:50 CDT by Shauna Gunter M.D. [id number]
--- NOTE | 2020-07-06 01:43 | W.ED.NAVMDI ---
HPI - Nausea/Vomiting/Diarrhea General: Chief complaint: Nausea/Vomiting/Diarrhea Stated complaint: accidentally took med not his Time Seen by Provider: 07/06/20 01:38 History of Present Illness: HPI Narrative: This patient is a 69-year-old male who presents to the emergency department plaint of nausea vomiting diarrhea. Patient reportedly accidentally took his 's Requip. Patient is sweating and complains significant nausea and vomiting. Patient denies chest pain or shortness of breath. Will do medical evaluation treat as needed. MD elicited complaint: nausea, vomiting and diarrhea Associated nausea: Yes Associated symtoms: Reports nausea; Denies anxiety, change in vision, chest pain, dysuria, fatigue, headache(s) or palpitations Review of Systems General: Reports: 10 or more systems reviewed and unremarkable except in HPI and below Const: Denies: fatigue Eyes: Denies: change in vision ENMT: Denies: throat pain, hoarseness or mouth pain Card: Denies: chest pain or palpitations Resp: Denies: dyspnea, productive cough, non-productive cough, wheezing or pain on inspiration GI: Reports: nausea, vomiting and diarrhea : Denies: dysuria Musc: Denies: neck pain, back pain, extremity pain, extremity swelling, joint pain, joint swelling, joint redness, joint warmth or limited range of motion Skin/Breast: Denies: rash, pruritus, erythema or skin tenderness Neuro: Denies: headache(s) Psych: Denies: anxiety PFS ED PFSH: Medical History (Updated 07/06/20 @ 02:47 by Alfred Nickerson MD) Arthritis Chronic low back pain Long-term use of high-risk medication Continue to monitor use Tobacco abuse counselled to quit smoking Surgical History History of appendectomy History of spinal surgery 25 years ago l4/5 fusion per pt Family History Father Stroke Other Hypertension Social History Smoking and tobacco status: current some day smoker cigarettes [ Other cigarette details: 1 PK WEEK ] Alcohol intake: former Desire information about substance/drug rehabilitation?: No Physical Exam Const: COMMON NORMALS: no acute distress, average body habitus, patient oriented x3, no limitations, healthy appearing, alert and well nourished GENERAL APPEARANCE: diaphoretic HENMT: COMMON NORMALS: normocephalic, atraumatic, external ears normal, EAC's normal, TM's normal bilaterally, Normal external nose present and Normal nasal mucous membranes and turbinates present HEAD & SCALP: normocephalic and atraumatic NOSE: Normal external nose present and Normal nasal mucous membranes and turbinates present EXTERNAL EAR: Yes external ears normal EXTERNAL AUDITORY CANAL: EAC's normal TYMPANIC MEMBRANE: TM's normal bilaterally Neck/C-Spine: COMMON NORMALS: full ROM, no lymphadenopathy, supple, no meningeal signs, no JVD, Thyroid normal and No carotid bruits THYROID: Thyroid normal Chest: COMMONS NORMALS: normal inspection of the chest, normal palpation of entire chest wall, normal inspection of the breasts and normal palpation of the breasts Breast/axilla inspection: Yes normal inspection of the breasts BREAST/AXILLA PALPATION: Yes normal palpation of the breasts Resp: COMMON NORMALS: normal respiratory effort, No retractions, No use of accessory muscles, clear to auscultation bilaterally and percussion normal AUSCULTATION: clear to auscultation bilaterally PERCUSSION: percussion normal Cardio: COMMON NORMALS: no JVD, regular rate, regular rhythm, S1 normal heart sound present, S2 normal heart sound present, No gallops present (Cardio), No clicks present (Cardio), No murmurs present (Cardio), No rub (Cardio) and Peripheral pulses 2+ throughout RATE: regular rate RHYTHM: regular rhythm HEART SOUNDS: S1 normal heart sound present and S2 normal heart sound present PERIPHERAL PULSES: Peripheral pulses 2+ throughout GI: COMMON NORMALS: Normal to inspection, nondistended, normoactive bowel sounds present, Soft to palpation, non-tender, No hepatosplenomegaly present, no masses and no bruits PALPATION: Yes Soft to palpation and Yes No hepatosplenomegaly present : COMMON NORMALS: Yes no CVA tenderness BLADDER/KIDNEY EXAM: Yes no CVA tenderness Back/Pelvis: COMMON NORMALS: no CVA tenderness, thoracic and lumbar spine normal to inspection, no thoracic nor lumbar tenderness, thoraco-lumbar ROM normal and straight leg raise negative bilaterally Extremity: COMMON NORMALS: normal to inspection, full ROM, capillary refill normal, no joint enlargement, no clubbing, cyanosis or edema, no calf tenderness and no pedal edema Neuro: COMMON NORMALS: patient oriented x3 SENSORIUM/ORIENTATION: Yes alert MENINGEAL SIGNS: Yes no meningeal signs Course Reevaluation(s): Reevaluation #1: Patient much improved no vomiting states he is feeling much relief except for a mild headache. Patient will be given Tylenol and discharge. Encourage encourage p.o. fluids. Do not take anyone's medication but your home. Follow-up with PCP in 2 to 3 days Time: 02:45 Vital Signs: Vital signs: Vital Signs Temperature 97.9 F 07/06/20 01:35 Pulse Rate 71 07/06/20 02:31 Respiratory Rate 8 L 07/06/20 02:31 Blood Pressure 187/101 07/06/20 02:31 Pulse Oximetry 99 07/06/20 02:31 MDM - Nausea/Vomiting/Diarrhea Lab Data: Attestation: I reviewed the patient's lab results. Labs: Lab Results 07/06/20 07/06/20 07/06/20 Range/Units 01:53 01:55 01:55 WBC 12.3 H (4.0-10.0) 10^3/ uL RBC 4.29 (4.1-5.3) 10^6/u L Hgb 11.3 L (11.7-16.6) g/dL Hct 35.1 L (42.0-52.0) % MCV 81.8 (80-94) fL MCH 26.3 L (28.0-34.0) pg MCHC 32.2 (30.0-36.0) g/dL RDW 15.3 H (12.1-15.1) % Plt Count 565 H (130-400) 10^3/c mm MPV 9.8 (7.4-10.4) fL Neut % (Auto) 84.2 % Lymph % (Auto) 9.7 % [place] % (Auto) 5.1 % Eos % (Auto) 0.0 % Baso % (Auto) 0.1 % Neut # (Auto) 10.39 H (1.8-7.7) 10^3/u L Lymph # (Auto) 1.2 (0.8-4.8) 10^3/u L [place] # (Auto) 0.6 (0.2-0.9) 10^3/u L Eos # (Auto) 0.0 (0.0-0.8) 10^3/u L Baso # (Auto) 0.0 (0.0-0.1) 10^3/u L Nucleated RBC % (a uto) 0 % Nucleated RBCs # 0.0 /100WBC Sodium 139 (136-145) mmol/L Potassium 4.0 (3.5-5.1) mmol/L Chloride 105 (98-107) mmol/L Carbon Dioxide 22 (22-29) mmol/L Anion Gap 16.0 (5-19) Glucose 102 (65-115) mg/dL POC Glucose 102 (70-110) mg/dL Calculated Osmolal ity 293 (285-295) mOsm/k g Magnesium 2.2 (1.7-2.3) mg/dL Total Bilirubin 0.2 (0.15-1.2) mg/dL AST 20 (0-40) U/L ALT 41 (0-41) U/L Troponin T Gen 5 n g/L (0-15) ng/L Total Protein 7.7 (6.6-8.7) g/dL Albumin 3.8 (3.5-5.2) g/dL Globulin 3.9 (1.3-4.6) g/dL Lipase 54 (13-60) U/L Urine Color (Yellow) Urine Appearance (CLEAR) Urine pH (5-7) Ur Specific Gravit y (1.005-1.030) Urine Protein (Negative) Urine Glucose (UA) (Normal) Urine Ketones (Negative) Urine Blood (Negative) Urine Nitrate (Negative) Urine Bilirubin (Negative) Urine Urobilinogen (Negative) mg/dL Ur Leukocyte Brittny ase (Negative) 07/06/20 07/06/20 Range/Units 01:55 02:09 WBC (4.0-10.0) 10^3/ uL RBC (4.1-5.3) 10^6/u L Hgb (11.7-16.6) g/dL Hct (42.0-52.0) % MCV (80-94) fL MCH (28.0-34.0) pg MCHC (30.0-36.0) g/dL RDW (12.1-15.1) % Plt Count (130-400) 10^3/c mm MPV (7.4-10.4) fL Neut % (Auto) % Lymph % (Auto) % [place] % (Auto) % Eos % (Auto) % Baso % (Auto) % Neut # (Auto) (1.8-7.7) 10^3/u L Lymph # (Auto) (0.8-4.8) 10^3/u L [place] # (Auto) (0.2-0.9) 10^3/u L Eos # (Auto) (0.0-0.8) 10^3/u L Baso # (Auto) (0.0-0.1) 10^3/u L Nucleated RBC % (a uto) % Nucleated RBCs # /100WBC Sodium (136-145) mmol/L Potassium (3.5-5.1) mmol/L Chloride (98-107) mmol/L Carbon Dioxide (22-29) mmol/L Anion Gap (5-19) Glucose (65-115) mg/dL POC Glucose (70-110) mg/dL Calculated Osmolal ity (285-295) mOsm/k g Magnesium (1.7-2.3) mg/dL Total Bilirubin (0.15-1.2) mg/dL AST (0-40) U/L ALT (0-41) U/L Troponin T Gen 5 n g/L 11 (0-15) ng/L Total Protein (6.6-8.7) g/dL Albumin (3.5-5.2) g/dL Globulin (1.3-4.6) g/dL Lipase (13-60) U/L Urine Color Yellow (Yellow) Urine Appearance Clear (CLEAR) Urine pH 7 (5-7) Ur Specific Gravit y 1.005 (1.005-1.030) Urine Protein Neg (Negative) Urine Glucose (UA) Norm (Normal) Urine Ketones Negative (Negative) Urine Blood Neg (Negative) Urine Nitrate Negative (Negative) Urine Bilirubin Neg (Negative) Urine Urobilinogen Norm (Negative) mg/dL Ur Leukocyte Brittny ase Negative (Negative) EKG Data^: EKG 1: Attestation: I personally reviewed and interpreted this EKG as follows: EKG interpretation date: 07/06/20 EKG interpretation time: 01:48 Prior EKG tracings: available for review Interpretation: Normal sinus rhythm heart rate 75 Discharge Plan Discharge Patient Disposition: Home Clinical Impression: Medication side effect, Vomiting alone Condition: Stable Prescriptions: No Action diclofenac sodium [Voltaren Arthritis Pain] 1 % gel 2 g topical QID Qty: 100 RF: 2 methotrexate sodium 2.5 mg tablet 2.5 mg PO .COMPLEX RF: 0 folic acid 1 mg tablet 1 mg PO DAILY RF: 0 lisinopril 10 mg tablet 10 mg PO DAILY RF: 0 prednisone 5 mg tablet See Rx Instructions PO DAILY Qty: 60 RF: 0 trazodone 50 mg Tablet 50 mg PO BEDTIME RF: 0 Lidocaine Viscous 2 % solution 1.2 ml topical Q3H PRN (Reason: pain) Qty: 15 RF: 0 chlorhexidine gluconate 0.12 % mouthwash 15 ml buccal BID Qty: 118 RF: 0 hydrocodone-acetaminophen 5-325 mg tablet 1 tab PO Q6H PRN (Reason: pain) Qty: 20 RF: 0 Discharge Orders: Discharge ED (Routine); Ordered 07/06/20 Ordered By: Alfred Nickerson Referrals: Loni Che PA [Primary Care Provider] - Discharge Diet: Advance as tolerated Discharge Activity: Resume usual activity Patient Instructions: Opioid Safety Activity Restrictions/Additional Instructions: Encourage encourage p.o. fluids. Do not take anyone's medication but your home. Follow-up with PCP in 2 to 3 days Coding Level of Care Code ED Production Director for Chg Fwd Exam Comprehensive
[2020-07-06] MEDS: ondansetron 2 mg/ML SDV 2 mL 4 MG IVP (01:56)
[2020-07-06 02:03] LABS: Glucose Point of Care 102 mg/dL (70-110)
[2020-07-06 02:05] LABS: Basophils % 0.1 %; Hematocrit 35.1 % (42.0-52.0); Hemoglobin 11.3 g/dL (11.7-16.6); Lymphocytes # 1.2 10^3/uL (0.8-4.8); Lymphocytes % 9.7 %; Mean Corpuscular HGB Conc 32.2 g/dL (30.0-36.0); Mean Corpuscular Hemoglobin 26.3 pg (28.0-34.0); Mean Corpuscular Volume 81.8 fL (80-94); Mean Platelet Volume 9.8 fL (7.4-10.4); Monocytes # 0.6 10^3/uL (0.2-0.9); Monocytes % 5.1 %; Neutrophils # 10.39 10^3/uL (1.8-7.7); Neutrophils % 84.2 %; Nucleated Red Blood Cells % 0 %; Platelet Count 565 10^3/cmm (130-400); Red Blood Count 4.29 10^6/uL (4.1-5.3); Red Cell Distribution Width 15.3 % (12.1-15.1); White Blood Count 12.3 10^3/uL (4.0-10.0)
[2020-07-06 02:14] LABS: Add Urine Microscopic? NO
[2020-07-06 02:18] LABS: Bilirubin Urine Neg (Negative); Blood Urine Neg (Negative); Glucose Urine UA Norm (Normal); Ketones Urine Negative (Negative); Leukocyte Esterase Urine Negative (Negative); Nitrate Urine Negative (Negative); Protein Urine Neg (Negative); Specific Gravity, Urine 1.005 (1.005-1.030); Urine Appearance Clear (CLEAR); Urine Color Yellow (Yellow); Urobilinogen Urine Norm (Negative); pH Urine 7 (5-7)
[2020-07-06 02:27] LABS: Alanine Aminotransferase 41 U/L (0-41); Albumin Level 3.8 g/dL (3.5-5.2); Alkaline Phosphatase 134 IU/L (40-130); Aspartate Amino Transferase 20 U/L (0-40); Blood Urea Nitrogen 27 mg/dL (8-23); Calcium 8.4 mg/dL (8.5-10.5); Carbon Dioxide 22 mmol/L (22-29); Chloride 105 mmol/L (98-107); Globulin 3.9 g/dL (1.3-4.6); Glomerular Filtration Rate 46.4 mL/min (90-130); Glucose 102 mg/dL (65-115); Lipase 54 U/L (13-60); Magnesium 2.2 mg/dL (1.7-2.3); Osmolality Calculated 293 mOsm/kg (285-295); Sodium 139 mmol/L (136-145); Total Bilirubin 0.2 mg/dL (0.15-1.2); Total Protein 7.7 g/dL (6.6-8.7)
[2020-07-06 02:29] LABS: Troponin T (5th) Once 11 ng/L (0-15)
[2020-07-06 02:31] VITALS: BP 187/101; PULSE 71; RESP 8; O2SAT 99
[2020-07-06 03:10] VITALS: BP 172/98; PULSE 87; RESP 18
== END 2020-07-06 03:13 | disposition home or self-care (01) ==
PROVIDERS: Emergency Provider Emergency Medicine; PCP Physician Assistant
DX: R11.11 Vomiting without nausea (principal); T50.905A Adverse effect of unspecified drugs, medicaments and biological substances, initial encounter; F17.210 Nicotine dependence, cigarettes, uncomplicated
CPT/HCPCS: 36416; 71045; 74018; 80053; 81003; 82962; 83690; 83735; 84484; 85025; 93005; 96374; 99283; J2405

== ENCOUNTER 2020-08-03 23:09 | Emergency (ER) | payer MEDICARE, MEDICAID, SELFPAY ==
[2020-08-03 23:13] VITALS: BP 156/100; PULSE 103; RESP 28; TEMP 36.4; O2SAT 100; BMI 27.4
--- NOTE | 2020-08-03 23:14 | ECG_ITS ---
[facility] Test Date: 2020-08-03 Pat Name: Rubin Donnelly Department: Room: Gender: Male Director Digital Communications: : 1950 Requested By: Rubi Naidu Order Number: [id number] Yoli MD: Shauna Gunter M.D. Measurements Intervals [place] Rate: 94 P: MD: QRS: 61 QRSD: 89 T: 67 QT: 390 QTc: 489 Interpretive Statements SUPRAVENTRICULAR RHYTHM ABNORMAL RHYTHM ECG Compared to ECG 07/06/2020 01:48:52 Supraventricular rhythm now present Sinus rhythm no longer present Heavy baseline artifacts -need to repeat the study Electronically Signed On 08-04-2020 20:56:38 CDT by Shauna Gunter M.D. [id number]
--- NOTE | 2020-08-03 23:22 | ED_ITS ---
HPI - Alcohol General: Chief Complaint: Alcohol Stated Complaint: ETOH W/CHEST PAIN Time Seen by Provider: 08/03/20 23:11 Source: patient and EMS Mode of arrival: EMS Limitations: other (ETOH intoxication) History of Present Illness: HPI narrative: 69-year-old male patient with history of EtOH abuse presents to the emergency department with EtOH intoxication. Brought by EMS, was requesting detox from alcohol, developed chest pain upon arrival to the ED. He denies nausea vomiting diarrhea, denies fever chills. He states has had 50 shots of whiskey in the past several days. He reports increased drinking tonight due to his s/o leaving for [place]. He reports had 10 shots of whiskey tonight. He reports since s/o left, he is drinking more. He denies suicidal ideation plans or thoughts. He is requesting something to help him rest upon exam. He reports anxiety. He reports drinks whiskey daily. MD complaint: alcohol intoxication, alcohol dependence and desires rehab Last drink: Just [employer] Chronic alcohol use: Yes Previous visits for alcohol intoxication: Yes Recent trauma: No Associated symptoms: Reports no associated symptoms; Deny abdominal pain, depression, diaphoresis, nausea or vomiting Treatments prior to arrival: none Review of Systems General: Reports: 10 or more systems reviewed and unremarkable except in HPI and below Const: Denies: fever(s), chills, body aches, fatigue, malaise or diaphoresis Eyes: Denies: blurry vision or eye redness ENMT: Denies: throat pain, dental pain or disequilibrium Card: Reports: chest pain; Denies: palpitations, irregular heart rhythm, swelling of feet/ankles, lightheadedness or dyspnea on exertion Resp: Denies: dyspnea, productive cough, non-productive cough or wheezing GI: Denies: abdominal pain, nausea or vomiting : Denies: difficulty urinating, dysuria or urinary urgency Musc: Denies: neck pain, back pain, joint pain, muscle cramps or muscle weakness Skin/Breast: Denies: rash, pruritus, erythema or photosensitivity Neuro: Denies: headache(s), weakness in extremities or behavioral changes Psych: Reports: anxiety; Denies: depression, irritability, visual hallucinations or auditory hallucinations J Carlos/Lymph: Denies: easy bruising PFS ED PFSH: Medical History (Updated 08/04/20 @ 02:27 by RUCHI Easley) Alcohol abuse Arthritis Chronic low back pain Long-term use of high-risk medication Continue to monitor use Tobacco abuse counselled to quit smoking Surgical History History of appendectomy History of spinal surgery 25 years ago l4/5 fusion per pt Family History Father Stroke Other Hypertension Social History Smoking and tobacco status: current some day smoker cigarettes [ Other cigarette details: 1 PK WEEK ] Alcohol intake: former Desire information about substance/drug rehabilitation?: No Physical Exam Const: COMMON NORMALS: no acute distress, patient oriented x3, healthy appearing, alert and well nourished GENERAL APPEARANCE: cooperative, comfortable, well developed, anxious, disheveled and odor of alcohol detected; not ill appearing and not frail appearing NUTRITIONAL APPEARANCE: overweight ORIENTATION/CONSCIOUSNESS: Yes oriented to person, Yes oriented to place and Yes oriented to time HENMT: COMMON NORMALS: normocephalic, atraumatic, Normal external nose present and moist oral mucous membranes HEAD & SCALP: normal to inspection, normocephalic and atraumatic FACE & SINUS: normal facial exam and face symmetric; no ecchymosis, no erythema and no edema NOSE: Normal external nose present, Normal nares present and No nasal polyps present MOUTH: Normal oral and palatal mucosa present and tongue normal THROAT: posterior oropharynx normal and uvula midline Eye: COMMON NORMALS: Equal, round and reactive pupils present and EOMs intact bilaterally GENERAL EYE: appearance normal, both eyes and all related structures PUPIL: Yes Equal, round and reactive pupils present Neck/C-Spine: COMMON NORMALS: full ROM, no lymphadenopathy and no meningeal signs GENERAL: Yes normal visual inspection and Yes trachea midline CERVICAL SPINE: Yes cervical ROM normal Lymph: LYMPHATIC: no lymphadenopathy noted Chest: COMMONS NORMALS: normal inspection of the chest and normal palpation of entire chest wall Resp: COMMON NORMALS: normal respiratory effort, No retractions, No use of accessory muscles and clear to auscultation bilaterally EFFORT & INSPECTION: Yes able to speak in complete sentences AUSCULTATION: clear to auscultation bilaterally Cardio: COMMON NORMALS: regular rate, regular rhythm, S1 normal heart sound present, S2 normal heart sound present and Peripheral pulses 2+ throughout RATE: regular rate RHYTHM: regular rhythm HEART SOUNDS: S1 normal heart sound present and S2 normal heart sound present PERIPHERAL PULSES: Peripheral pulses 2+ throughout GI: COMMON NORMALS: Normal to inspection, nondistended, normoactive bowel sounds present, Soft to palpation and non-tender INSPECTION: Yes normal to inspection, No abdominal wall ecchymosis, No abdominal distension, No central obesity and Yes scar PALPATION: Yes Soft to palpation : COMMON NORMALS: Yes no CVA tenderness BLADDER/KIDNEY EXAM: Yes no CVA tenderness Back/Pelvis: COMMON NORMALS: no CVA tenderness, thoracic and lumbar spine normal to inspection, no thoracic nor lumbar tenderness and thoraco-lumbar ROM normal Extremity: COMMON NORMALS: normal to inspection, full ROM, capillary refill normal and no pedal edema GENERAL: Yes normal exam except as noted Neuro: DECLAN COMA SCALE: document GCS findings Declan coma scale eye opening: Spontaneous Hennessey coma scale verbal response: Orientated [place]ennessey coma scale motor response: Obey commands Declan coma scale total score: 15 COMMON NORMALS: patient oriented x3 and no focal motor deficits SENSORIUM/ORIENTATION: Yes alert, Yes oriented to person, Yes oriented to place and Yes oriented to time MENINGEAL SIGNS: Yes no meningeal signs Psych: COMMON NORMALS: mental status grossly normal, Normal thought process present, cooperative, speech normal, denies hallucinations, denies homicidal ideation and denies suicidal ideation APPEARANCE: Yes disheveled ATTITUDE: Yes calm ACTIVITY/MOTOR BEHAVIOR: Yes appropriate eye contact SPEECH: Yes normal speech MOOD & AFFECT: Yes anxious THOUGHT PROCESS: Normal thought process present THOUGHT CONTENT: Yes Normal thought content present ATTENTION/CONCENTRATION: Yes attention grossly intact MEMORY/COGNITION: Yes memory grossly intact INSIGHT: Fair insight present (Psych) JUDGEMENT: Fair judgement present (Psych) Skin: COMMON NORMALS: no rashes or lesions noted and turgor normal GENERAL SKIN EXAM: no rashes or lesions noted and turgor normal Course Vital Signs: Vital signs: Vital Signs Temperature 97.5 F L 08/03/20 23:13 Pulse Rate 94 08/04/20 01:30 Respiratory Rate 20 H 08/04/20 01:30 Blood Pressure 176/93 08/04/20 01:30 Pulse Oximetry 97 08/04/20 01:30 MDM - Alcohol MDM Narrative: Medical decision making narrative: 69-year-old male patient presents to the emergency department via EMS due to alcohol intoxication. Upon arrival to the ED, he did complain of chest pain. Smell of EtOH present. Patient reports he had 10 shots of whiskey tonight, has increased EtOH use since his significant other went to [place] approximately 1 week ago. Troponin serial series with delta increase of only 1, D-dimer with age correction VTE low risk. Chest x-ray did not reveal acute abnormalities, radiology interpretation pending. IV fluid provided along with B12 and thiamine supplement, he remained alert and oriented, restless during his stay, lorazepam 2 mg administered which seemed to help his anxiety which is chronic. Patient states chest pain resolved, he did receive Pepcid 40 mg p.o, alcohol induced gastritis as differential diagnosis considered. Advised to follow-up with his primary care next week and to refrain from EtOH use. Lipase was slightly elevated, he did not complain of abdominal pain, nausea vomiting or diarrhea. He was able to drink Sprite and eat crackers during his stay. Lab Data: Labs: Lab Results 08/03/20 08/03/20 08/03/20 Range/Units 23:25 23:25 23:25 WBC 9.6 (4.0-10.0) 10^3/ uL RBC 4.68 (4.1-5.3) 10^6/u L Hgb 11.9 (11.7-16.6) g/dL Hct 37.4 L (42.0-52.0) % MCV 79.9 L (80-94) fL MCH 25.4 L (28.0-34.0) pg MCHC 31.8 (30.0-36.0) g/dL RDW 15.2 H (12.1-15.1) % Plt Count 424 H (130-400) 10^3/c mm MPV 9.7 (7.4-10.4) fL Neut % (Auto) 55.4 % Lymph % (Auto) 37.4 % [place] % (Auto) 5.5 % Eos % (Auto) 0.7 % Baso % (Auto) 0.8 % Neut # (Auto) 5.30 (1.8-7.7) 10^3/u L Lymph # (Auto) 3.6 (0.8-4.8) 10^3/u L [place] # (Auto) 0.5 (0.2-0.9) 10^3/u L Eos # (Auto) 0.1 (0.0-0.8) 10^3/u L Baso # (Auto) 0.1 (0.0-0.1) 10^3/u L Nucleated RBC % (a uto) 0 % Nucleated RBCs # 0.0 /100WBC D-Dimer (0-0.59) ug/mIFE U Sodium 141 (136-145) mmol/L Potassium 3.3 L (3.5-5.1) mmol/L Chloride 101 (98-107) mmol/L Carbon Dioxide 23 (22-29) mmol/L Anion Gap 20.3 H (5-19) BUN 9 (8-23) mg/dL Creatinine 1.7 H (0.7-1.2) mg/dL GFR Calculation 40.2 L (90-130) mL/min Glucose 128 H (65-115) mg/dL Calculated Osmolal ity 292 (285-295) mOsm/k g Calcium 7.9 L (8.5-10.5) mg/dL Total Bilirubin 0.5 (0.15-1.2) mg/dL AST 46 H (0-40) U/L ALT 24 (0-41) U/L Alkaline Phosphata se 221 H (40-130) IU/L Troponin T Baselin e 23 H (0-15) ng/L Troponin T 120 Min [place] (0-15) ng/L Delta Troponin T (0-10) ABS# Total Protein 7.6 (6.6-8.7) g/dL Albumin 4.2 (3.5-5.2) g/dL Globulin 3.4 (1.3-4.6) g/dL Lipase 103 H (13-60) U/L Ethyl Alcohol 384 H* (0-10) mg/dL 08/03/20 08/04/20 08/04/20 Range/Units 23:50 01:22 01:22 WBC (4.0-10.0) 10^3/ uL RBC (4.1-5.3) 10^6/u L Hgb (11.7-16.6) g/dL Hct (42.0-52.0) % MCV (80-94) fL MCH (28.0-34.0) pg MCHC (30.0-36.0) g/dL RDW (12.1-15.1) % Plt Count (130-400) 10^3/c mm MPV (7.4-10.4) fL Neut % (Auto) % Lymph % (Auto) % [place] % (Auto) % Eos % (Auto) % Baso % (Auto) % Neut # (Auto) (1.8-7.7) 10^3/u L Lymph # (Auto) (0.8-4.8) 10^3/u L [place] # (Auto) (0.2-0.9) 10^3/u L Eos # (Auto) (0.0-0.8) 10^3/u L Baso # (Auto) (0.0-0.1) 10^3/u L Nucleated RBC % (a uto) % Nucleated RBCs # /100WBC D-Dimer 8.17 H (0-0.59) ug/mIFE U Sodium (136-145) mmol/L Potassium (3.5-5.1) mmol/L Chloride (98-107) mmol/L Carbon Dioxide (22-29) mmol/L Anion Gap (5-19) BUN (8-23) mg/dL Creatinine (0.7-1.2) mg/dL GFR Calculation (90-130) mL/min Glucose (65-115) mg/dL Calculated Osmolal ity (285-295) mOsm/k g Calcium (8.5-10.5) mg/dL Total Bilirubin (0.15-1.2) mg/dL AST (0-40) U/L ALT (0-41) U/L Alkaline Phosphata se (40-130) IU/L Troponin T Baselin e (0-15) ng/L Troponin T 120 Min [place] 24.18 H (0-15) ng/L Delta Troponin T 1.18 (0-10) ABS# Total Protein (6.6-8.7) g/dL Albumin (3.5-5.2) g/dL Globulin (1.3-4.6) g/dL Lipase (13-60) U/L Ethyl Alcohol 318 H* (0-10) mg/dL Discharge Plan Discharge Patient Disposition: Home Clinical Impression: Alcoholic intoxication Qualifiers: Complication of substance-induced condition: uncomplicated Qualified Code(s): F10.920 - Alcohol use, unspecified with intoxication, uncomplicated Chest pain Qualifiers: Chest pain type: unspecified Qualified Code(s): R07.9 - Chest pain, unspecified Gastritis Qualifiers: Gastritis type: alcoholic Chronicity: acute Gastritis bleeding: without bleeding Qualified Code(s): K29.20 - Alcoholic gastritis without bleeding Condition: Stable Prescriptions: New Pepcid 20 mg tablet 20 mg PO BID Qty: 20 RF: 0 Discontinued Lidocaine Viscous 2 % solution 1.2 ml topical Q3H PRN (Reason: pain) Qty: 15 RF: 0 chlorhexidine gluconate 0.12 % mouthwash 15 ml buccal BID Qty: 118 RF: 0 No Action diclofenac sodium [Voltaren Arthritis Pain] 1 % gel 2 g topical QID Qty: 100 RF: 2 methotrexate sodium 2.5 mg tablet 2.5 mg PO .COMPLEX RF: 0 folic acid 1 mg tablet 1 mg PO DAILY RF: 0 lisinopril 10 mg tablet 10 mg PO DAILY RF: 0 prednisone 5 mg tablet See Rx Instructions PO DAILY Qty: 60 RF: 0 trazodone 50 mg Tablet 50 mg PO BEDTIME RF: 0 hydrocodone-acetaminophen 5-325 mg tablet 1 tab PO Q6H PRN (Reason: pain) Qty: 20 RF: 0 Discharge Orders: Discharge ED (Routine); Ordered 08/04/20 Ordered By: Rubi Landry Referrals: Loni Che PA [Primary Care Provider] - Discharge Diet: Usual diet Discharge Activity: Resume usual activity Patient Instructions: Chest Pain (ED), Alcohol Intoxication (ED), Abuse of Alcohol (ED), Opioid Safety Activity Restrictions/Additional Instructions: Get help for Alcohol Abuse - recommend to call alcohol Anonymous and [facility] meeting times to help with alcohol use Follow-up with your primary care provider next week Return to the emergency department if you develop worsening symptoms such as chest pain, shortness of breath, difficulty breathing or other concerning symptoms Continue folic acid supplement and other medications prescribed Coding Level of Care Code ED Design Tech for Chg Fwd Exam Comprehensive
[2020-08-03 23:29] LABS: Basophils # 0.1 10^3/uL (0.0-0.1); Basophils % 0.8 %; Eosinophils # 0.1 10^3/uL (0.0-0.8); Eosinophils % 0.7 %; Hematocrit 37.4 % (42.0-52.0); Hemoglobin 11.9 g/dL (11.7-16.6); Lymphocytes # 3.6 10^3/uL (0.8-4.8); Lymphocytes % 37.4 %; Mean Corpuscular HGB Conc 31.8 g/dL (30.0-36.0); Mean Corpuscular Hemoglobin 25.4 pg (28.0-34.0); Mean Corpuscular Volume 79.9 fL (80-94); Mean Platelet Volume 9.7 fL (7.4-10.4); Monocytes # 0.5 10^3/uL (0.2-0.9); Monocytes % 5.5 %; Neutrophils % 55.4 %; Nucleated Red Blood Cells % 0 %; Platelet Count 424 10^3/cmm (130-400); Red Blood Count 4.68 10^6/uL (4.1-5.3); Red Cell Distribution Width 15.2 % (12.1-15.1); White Blood Count 9.6 10^3/uL (4.0-10.0)
--- NOTE | 2020-08-03 23:34 | XR_ITS ---
WS: [id number] Portable AP upright chest, 08/03/2020 Clinical Data: CP Comparison: Portable chest, 07/06/2020. Findings: No nodules, masses or effusions are seen. The heart is normal. The pulmonary vascularity is not increased. No pneumonia or pneumothorax is seen. The aortic arch and descending aorta are minima lly tortuous. XR/XR chest 1V portable [id number] Impression: Atherosclerosis.
[2020-08-03] MEDS: famotidine 20 mg Tablet 40 MG PO (23:36)
[2020-08-03] MEDS: sodium chloride 0.9% 1,000 ML 999 ML IV (23:36)
[2020-08-03] MEDS: LORazepam 2 mg/mL INJ 1 mL IVP (23:38)
[2020-08-03 23:42] VITALS: BP 156/81; O2SAT 95
[2020-08-03 23:43] LABS: Troponin(5th) Baseline 23 ng/L (0-15)
[2020-08-03 23:45] VITALS: BP 156/81
[2020-08-03 23:55] LABS: Alanine Aminotransferase 24 U/L (0-41); Albumin Level 4.2 g/dL (3.5-5.2); Alkaline Phosphatase 221 IU/L (40-130); Anion Gap 20.3 (5-19); Aspartate Amino Transferase 46 U/L (0-40); Blood Urea Nitrogen 9 mg/dL (8-23); Calcium 7.9 mg/dL (8.5-10.5); Carbon Dioxide 23 mmol/L (22-29); Chloride 101 mmol/L (98-107); Globulin 3.4 g/dL (1.3-4.6); Glomerular Filtration Rate 40.2 mL/min (90-130); Glucose 128 mg/dL (65-115); Lipase 103 U/L (13-60); Osmolality Calculated 292 mOsm/kg (285-295); Potassium 3.3 mmol/L (3.5-5.1); Sodium 141 mmol/L (136-145); Total Bilirubin 0.5 mg/dL (0.15-1.2); Total Protein 7.6 g/dL (6.6-8.7)
[2020-08-04] VITALS (9 sets, daily range): BP systolic 147–180; BP diastolic 81–118; PULSE 78–94; RESP 13–25; O2SAT 94–98
[2020-08-04 00:03] LABS: Alcohol Level 384 mg/dL (0-10)
[2020-08-04 00:16] LABS: D Dimer 8.17 ug/mIFEU (0-0.59)
[2020-08-04] MEDS: cyanocobalamin 1,000 mcg Tablet 1000 MCG PO (01:15)
[2020-08-04] MEDS: thiamine 100 mg Tablet PO (01:15)
[2020-08-04 01:44] LABS: Alcohol Level 318 mg/dL (0-10)
[2020-08-04 01:45] LABS: Troponin 5 2HR 24.18 ng/L (0-15); Troponin 5 2HR Delta 1.18 ABS# (0-10)
== END 2020-08-04 02:34 | disposition home or self-care (01) ==
PROVIDERS: Emergency Provider Nurse Practitioner Family; PCP Physician Assistant
DX: F10.920 Alcohol use, unspecified with intoxication, uncomplicated (principal); R07.9 Chest pain, unspecified; K29.20 Alcoholic gastritis without bleeding; Y90.8 Blood alcohol level of 240 mg/100 ml or more; F17.210 Nicotine dependence, cigarettes, uncomplicated; F10.129 Alcohol abuse with intoxication, unspecified; Z79.899 Other long term (current) drug therapy
CPT/HCPCS: 36415; 71045; 80053; 80307; 83690; 83880; 84484; 85025; 85378; 93005; 96361; 96374; 99283; 99284; J2060; J2405; J7030

== ENCOUNTER 2020-08-04 20:22 | Emergency (ER) | payer MEDICARE, MEDICAID, SELFPAY ==
[2020-08-04 20:24] VITALS: BP 139/67; PULSE 112; RESP 24; TEMP 36.8; O2SAT 94; BMI 27.4
[2020-08-04 20:31] VITALS: BP 139/67; PULSE 101; RESP 18; O2SAT 96
--- NOTE | 2020-08-04 20:45 | XRR_ITS ---
PROCEDURE INFORMATION: Exam: XR Chest Exam date and time: 08/04/2020 9:00 PM Age: 69 years old Clinical indication: Chest pain; Type not specified; Additional info: Cp TECHNIQUE: Imaging protocol: XR of the chest. Views: 1 view. COMPARISON: CR XR chest 1V portable [id number] 08/03/2020 11:36 PM FINDINGS: The lungs are clear of infiltrate. There are no pleural effusions or pneumothorax. The heart size and pulmonary vascularity are normal. XR/XR chest 1V portable [id number] IMPRESSION: No active disease.
--- NOTE | 2020-08-04 20:48 | W.ED.CHESTPA ---
HPI - Chest Pain General: Chief Complaint: Chest Pain Stated Complaint: chest pain Time Seen by Provider: 08/04/20 20:29 History of Present Illness: HPI narrative: The patient is a 69-year-old male who comes to the ER complaining of epigastric pain radiating to his chest. He says he is drink lots of alcohol today and has this pain often. He says he does have history of myocardial infarction in the past but this does not feel similar to his pain then. MD complaint: chest pain Pertinent past history: coronary artery disease and prior [place] Onset: during rest Pain location: substernal and epigastric Pain radiation: none Severity: mild Quality: burning Relieving factors: nothing Exacerbating factors: other (alcohol) Associated symptoms: Reports no associated symptoms and abdominal pain; Deny dyspnea or palpitations Review of Systems General: Reports: 10 or more systems reviewed and unremarkable except in HPI and below Const: Denies: fatigue Eyes: Denies: change in vision, blurry vision or eye redness ENMT: Denies: throat pain, swelling of lips/tongue, ear or mastoid pain or nasal congestion Card: Denies: chest pain, palpitations, irregular heart rhythm, edema, dyspnea on exertion or orthopnea Resp: Denies: dyspnea, productive cough or non-productive cough GI: Reports: abdominal pain; Denies: diarrhea or GI cramping : Denies: flank pain, urinary frequency or urinary urgency Musc: Denies: neck pain, back pain, extremity pain, joint pain, joint redness, limited range of motion or muscle weakness Skin/Breast: Denies: rash, pruritus, erythema, skin pain or skin tenderness Neuro: Denies: headache(s), numbness in extremities, weakness in extremities, sensory changes, difficulty walking, dizziness, confusion or Slurred speech present Psych: Denies: anxiety or depression Endo: Denies: polyuria All/Imm: Denies: urticaria, throat swelling or tongue swelling PFSH ED PFSH: Medical History (Updated 08/04/20 @ 23:47 by Orestes Mistry MD) Alcohol abuse Arthritis Chronic low back pain Long-term use of high-risk medication Continue to monitor use Tobacco abuse counselled to quit smoking Surgical History History of appendectomy History of spinal surgery 25 years ago l4/5 fusion per pt Family History Father Stroke Other Hypertension Social History Smoking and tobacco status: current some day smoker cigarettes [ Other cigarette details: 1 PK WEEK ] Alcohol intake: former Desire information about substance/drug rehabilitation?: No Physical Exam Const: COMMON NORMALS: no acute distress, average body habitus, patient oriented x3, no limitations, healthy appearing, alert and well nourished GENERAL APPEARANCE: cooperative, comfortable, well kempt and well developed ORIENTATION/CONSCIOUSNESS: Yes awake, Yes oriented to person, Yes oriented to place and Yes oriented to time HENMT: COMMON NORMALS: normocephalic, external ears normal and Normal external nose present HEAD & SCALP: normal to inspection and normocephalic NOSE: Normal external nose present EXTERNAL EAR: Yes external ears normal MOUTH: Normal oral and palatal mucosa present THROAT: posterior oropharynx normal Eye: COMMON NORMALS: Equal, round and reactive pupils present and EOMs intact bilaterally GENERAL EYE: appearance normal, both eyes and all related structures PUPIL: Yes Equal, round and reactive pupils present Neck/C-Spine: COMMON NORMALS: full ROM, no lymphadenopathy, no meningeal signs and no JVD GENERAL: Yes normal visual inspection Lymph: LYMPHATIC: no lymphadenopathy noted Chest: COMMONS NORMALS: normal inspection of the chest and normal palpation of entire chest wall Resp: COMMON NORMALS: normal respiratory effort, No retractions, No use of accessory muscles, clear to auscultation bilaterally and percussion normal EFFORT & INSPECTION: Yes able to speak in complete sentences AUSCULTATION: clear to auscultation bilaterally PERCUSSION: percussion normal Cardio: COMMON NORMALS: no JVD, regular rate, regular rhythm, S1 normal heart sound present, S2 normal heart sound present and Peripheral pulses 2+ throughout RATE: regular rate RHYTHM: regular rhythm HEART SOUNDS: S1 normal heart sound present and S2 normal heart sound present PERIPHERAL PULSES: Peripheral pulses 2+ throughout GI: COMMON NORMALS: Normal to inspection, nondistended, normoactive bowel sounds present, Soft to palpation and no masses INSPECTION: Yes normal to inspection PALPATION: Yes Soft to palpation and Yes Tenderness to palpation present (GI) GI image (male): 1. Mild epigastric tenderness : COMMON NORMALS: Yes no CVA tenderness BLADDER/KIDNEY EXAM: Yes no CVA tenderness Back/Pelvis: COMMON NORMALS: no CVA tenderness, thoracic and lumbar spine normal to inspection, no thoracic nor lumbar tenderness and thoraco-lumbar ROM normal Extremity: COMMON NORMALS: normal to inspection, full ROM, capillary refill normal, no joint enlargement and no pedal edema GENERAL: Yes normal exam except as noted Neuro: COMMON NORMALS: patient oriented x3, CN's II-XII intact bilaterally, moves all extremities, no focal motor deficits, no sensory deficits noted and gait normal SENSORIUM/ORIENTATION: Yes alert, Yes oriented to person, Yes oriented to place and Yes oriented to time MENINGEAL SIGNS: Yes no meningeal signs Psych: COMMON NORMALS: mental status grossly normal, Normal thought process present, cooperative, normal affect and speech normal APPEARANCE: Yes well kempt ATTITUDE: Yes calm SPEECH: Yes normal speech THOUGHT PROCESS: Normal thought process present Skin: COMMON NORMALS: no rashes or lesions noted GENERAL SKIN EXAM: no rashes or lesions noted Course Vital Signs: Vital signs: Vital Signs Temperature 98.3 F 08/04/20 20:24 Pulse Rate 103 H 08/04/20 23:02 Respiratory Rate 18 08/04/20 20:31 Blood Pressure 143/111 08/04/20 23:02 Pulse Oximetry 99 08/04/20 23:02 MDM - Chest Pain MDM Narrative: Medical decision making narrative: The patient is a chronic alcoholic and comes to the ER complaining of gastritis radiating to his mid chest which is GERD. GI cocktail resolved his symptoms. Alcohol 336 on arrival. Mild elevation of lipase as well. He is tolerating liquids and solids well. Stable for discharge home. He also complained of chest pain. He does not follow a education professional. He had 2 normal EKGs and troponins. He is stable for outpatient management. I have placed a case management referral to help him get an appointment with a education professional to set up care. Also recommended he get his kidneys checked at his primary care doctors next week and cease alcohol consumption. Lab Data: Labs: Lab Results 08/04/20 08/04/20 08/04/20 Range/Units 20:10 20:10 20:10 WBC 7.9 (4.0-10.0) 10^3/ uL RBC 4.64 (4.1-5.3) 10^6/u L Hgb 11.8 (11.7-16.6) g/dL Hct 37.3 L (42.0-52.0) % MCV 80.4 (80-94) fL MCH 25.4 L (28.0-34.0) pg MCHC 31.6 (30.0-36.0) g/dL RDW 15.3 H (12.1-15.1) % Plt Count 402 H (130-400) 10^3/c mm MPV 10.2 (7.4-10.4) fL Neut % (Auto) 63.0 % Lymph % (Auto) 29.9 % [place] % (Auto) 5.1 % Eos % (Auto) 0.4 % Baso % (Auto) 1.3 % Neut # (Auto) 4.97 (1.8-7.7) 10^3/u L Lymph # (Auto) 2.4 (0.8-4.8) 10^3/u L [place] # (Auto) 0.4 (0.2-0.9) 10^3/u L Eos # (Auto) 0.0 (0.0-0.8) 10^3/u L Baso # (Auto) 0.1 (0.0-0.1) 10^3/u L Nucleated RBC % (a uto) 0 % Nucleated RBCs # 0.0 /100WBC Sodium 144 (136-145) mmol/L Potassium 3.7 (3.5-5.1) mmol/L Chloride 104 (98-107) mmol/L Carbon Dioxide 24 (22-29) mmol/L Anion Gap 19.7 H (5-19) BUN 10 (8-23) mg/dL Creatinine 1.8 H (0.7-1.2) mg/dL GFR Calculation 37.6 L (90-130) mL/min Glucose 105 (65-115) mg/dL Calculated Osmolal ity 297 H (285-295) mOsm/k g Calcium 7.9 L (8.5-10.5) mg/dL Total Bilirubin 0.4 (0.15-1.2) mg/dL AST 51 H (0-40) U/L ALT 27 (0-41) U/L Alkaline Phosphata se 242 H (40-130) IU/L Troponin T Baselin e 24 H (0-15) ng/L Troponin T 120 Min victor hugo (0-15) ng/L Delta Troponin T (0-10) ABS# NT-Pro-B Natriuret Pep 114 (0-125) pg/mL Total Protein 7.5 (6.6-8.7) g/dL Albumin 4.3 (3.5-5.2) g/dL Globulin 3.2 (1.3-4.6) g/dL Lipase 104 H (13-60) U/L Ethyl Alcohol 336 H* (0-10) mg/dL 08/04/20 Range/Units 22:21 WBC (4.0-10.0) 10^3/ uL RBC (4.1-5.3) 10^6/u L Hgb (11.7-16.6) g/dL Hct (42.0-52.0) % MCV (80-94) fL MCH (28.0-34.0) pg MCHC (30.0-36.0) g/dL RDW (12.1-15.1) % Plt Count (130-400) 10^3/c mm MPV (7.4-10.4) fL Neut % (Auto) % Lymph % (Auto) % [place] % (Auto) % Eos % (Auto) % Baso % (Auto) % Neut # (Auto) (1.8-7.7) 10^3/u L Lymph # (Auto) (0.8-4.8) 10^3/u L [place] # (Auto) (0.2-0.9) 10^3/u L Eos # (Auto) (0.0-0.8) 10^3/u L Baso # (Auto) (0.0-0.1) 10^3/u L Nucleated RBC % (a uto) % Nucleated RBCs # /100WBC Sodium (136-145) mmol/L Potassium (3.5-5.1) mmol/L Chloride (98-107) mmol/L Carbon Dioxide (22-29) mmol/L Anion Gap (5-19) BUN (8-23) mg/dL Creatinine (0.7-1.2) mg/dL GFR Calculation (90-130) mL/min Glucose (65-115) mg/dL Calculated Osmolal ity (285-295) mOsm/k g Calcium (8.5-10.5) mg/dL Total Bilirubin (0.15-1.2) mg/dL AST (0-40) U/L ALT (0-41) U/L Alkaline Phosphata se (40-130) IU/L Troponin T Baselin e (0-15) ng/L Troponin T 120 Min victor hugo 23.00 H (0-15) ng/L Delta Troponin T -1.00 L (0-10) ABS# NT-Pro-B Natriuret Pep (0-125) pg/mL Total Protein (6.6-8.7) g/dL Albumin (3.5-5.2) g/dL Globulin (1.3-4.6) g/dL Lipase (13-60) U/L Ethyl Alcohol (0-10) mg/dL Discharge Plan Discharge Patient Disposition: Home Clinical Impression: Acute alcoholic gastritis, Alcohol intoxication Condition: Stable Prescriptions: No Action diclofenac sodium [Voltaren Arthritis Pain] 1 % gel 2 g topical QID Qty: 100 RF: 2 methotrexate sodium 2.5 mg tablet 2.5 mg PO .COMPLEX RF: 0 folic acid 1 mg tablet 1 mg PO DAILY RF: 0 lisinopril 10 mg tablet 10 mg PO DAILY RF: 0 prednisone 5 mg tablet See Rx Instructions PO DAILY Qty: 60 RF: 0 trazodone 50 mg Tablet 50 mg PO BEDTIME RF: 0 hydrocodone-acetaminophen 5-325 mg tablet 1 tab PO Q6H PRN (Reason: pain) Qty: 20 RF: 0 famotidine [Pepcid] 20 mg tablet 20 mg PO BID Qty: 20 RF: 0 Discharge Orders: Discharge ED (Routine); Ordered 08/04/20 Ordered By: Orestes Mistry Referrals: Loni Che PA [Primary Care Provider] - Discharge Diet: Advance as tolerated Discharge Activity: Resume usual activity Patient Instructions: Gastritis (ED), Alcohol Intoxication (ED), Opioid Safety Activity Restrictions/Additional Instructions: Your belly pain radiating up to your chest is most likely caused by drinking alcohol. Please stop drinking alcohol and keep Maalox around at home to help with your symptoms. Return to the ER with worsening symptoms. He also expressed some element of chest pain. Your troponins and EKGs have been normal here. I have placed a case management referral to help you get an appointment with a education professional as an outpatient. Return to the ER with worsening symptoms at any time. Coding Level of Care Code ED Tool Dispatcher for Ed Fwd Exam Comprehensive
[2020-08-04] MEDS: aspirin 81 mg Chew Tablet 324 MG PO (20:57)
[2020-08-04 20:58] LABS: Basophils # 0.1 10^3/uL (0.0-0.1); Basophils % 1.3 %; Eosinophils % 0.4 %; Hematocrit 37.3 % (42.0-52.0); Hemoglobin 11.8 g/dL (11.7-16.6); Lymphocytes # 2.4 10^3/uL (0.8-4.8); Lymphocytes % 29.9 %; Mean Corpuscular HGB Conc 31.6 g/dL (30.0-36.0); Mean Corpuscular Hemoglobin 25.4 pg (28.0-34.0); Mean Corpuscular Volume 80.4 fL (80-94); Mean Platelet Volume 10.2 fL (7.4-10.4); Monocytes # 0.4 10^3/uL (0.2-0.9); Monocytes % 5.1 %; Neutrophils # 4.97 10^3/uL (1.8-7.7); Nucleated Red Blood Cells % 0 %; Platelet Count 402 10^3/cmm (130-400); Red Blood Count 4.64 10^6/uL (4.1-5.3); Red Cell Distribution Width 15.3 % (12.1-15.1); White Blood Count 7.9 10^3/uL (4.0-10.0)
[2020-08-04] MEDS: lidocaine 2% viscous 15 ML, aluminum-mag hydrox-simethicon 30 ML, sucralfate oral liq 1 GM PO (20:58)
[2020-08-04 21:13] LABS: Troponin(5th) Baseline 24 ng/L (0-15)
[2020-08-04 21:21] LABS: Alanine Aminotransferase 27 U/L (0-41); Albumin Level 4.3 g/dL (3.5-5.2); Alkaline Phosphatase 242 IU/L (40-130); Aspartate Amino Transferase 51 U/L (0-40); Blood Urea Nitrogen 10 mg/dL (8-23); Calcium 7.9 mg/dL (8.5-10.5); Carbon Dioxide 24 mmol/L (22-29); Chloride 104 mmol/L (98-107); Globulin 3.2 g/dL (1.3-4.6); Glomerular Filtration Rate 37.6 mL/min (90-130); Glucose 105 mg/dL (65-115); Lipase 104 U/L (13-60); NT Pro B Type Natriuretic Pept 114 pg/mL (0-125); Osmolality Calculated 297 mOsm/kg (285-295); Sodium 144 mmol/L (136-145); Total Bilirubin 0.4 mg/dL (0.15-1.2); Total Protein 7.5 g/dL (6.6-8.7)
[2020-08-04 21:23] LABS: Anion Gap 19.7 (5-19); Potassium 3.7 mmol/L (3.5-5.1)
[2020-08-04 21:24] LABS: Alcohol Level 336 mg/dL (0-10)
[2020-08-04 23:02] VITALS: BP 143/111; PULSE 103; O2SAT 99
[2020-08-04] MEDS: ondansetron 2 mg/ML SDV 2 mL 4 MG IVP (23:04)
[2020-08-04 23:50] VITALS: BP 171/82; PULSE 83; O2SAT 98
--- NOTE | 2020-08-07 15:50 | DCPLANNER ---
manager heart failure had message to schedule a follow up appointment for patient with heart care. manager heart failure called heart care, spoke with Karen, gave clinic patients information. A follow up appointment was scheduled for Saturday, August 15, 2020 at 1:[address] Steven. manager heart failure called [phone] unable to speak with patient and unable to leave a voicemail for patient. manager heart failure called patients friend, gave her the appointment information, and informed her that for outpatient alcohol detox outpatient treatments that there was [facility] in [place], but patient would have to go to the facility and fill out their assessment information. Patients friend stated that she would tell patient that he would need to go to [facility] and fill out paperwork. The friend asked if case worker could send a letter to patient with the appointment information for heart care. manager heart failure sent patient a letter with the appointment information for heart care.
--- NOTE | 2020-08-16 10:16 | DCPLANNER ---
Patient had an appointment with [facility] on 08.[facility] Steven, appointment was cancelled.
== END 2020-08-04 23:56 | disposition home or self-care (01) ==
PROVIDERS: Emergency Provider Family Medicine; PCP Physician Assistant
DX: K29.20 Alcoholic gastritis without bleeding (principal); F10.129 Alcohol abuse with intoxication, unspecified; Y90.8 Blood alcohol level of 240 mg/100 ml or more; F17.210 Nicotine dependence, cigarettes, uncomplicated
CPT/HCPCS: 71045; 80053; 80307; 83690; 83880; 84484; 85025; 96374; 99283; J2405

== ENCOUNTER 2020-08-05 05:07 | Emergency (ER) | payer MEDICARE, MEDICAID, SELFPAY ==
[2020-08-05 05:07] VITALS: BP 162/100; PULSE 116; RESP 20; TEMP 36.4; O2SAT 94; BMI 27.6
--- NOTE | 2020-08-05 05:13 | CTR_ITS ---
PROCEDURE INFORMATION: Exam: CTA Chest With Contrast Exam date and time: 08/05/2020 5:33 AM Age: 69 years old Clinical indication: Patient HX: Chest pain. Elevated d dimer; Additional info: Cp TECHNIQUE: Imaging protocol: Computed tomographic angiography of the chest with contrast. 3D rendering (Not supervised by radiologist): MIP and/or 3D reconstructed images were created by the technologist. Radiation optimization: All CT scans at this facility use at least one of these dose optimization techniques: automated exposure control; mA and/or kV adjustment per patient size (includes targeted exams where dose is matched to clinical indication); or iterative reconstruction. Contrast material: VISI 320; Contrast volume: 73 ml; Contrast route: INTRAVENOUS (IV); COMPARISON: CR XR chest 1V portable [id number] 08/05/2020 5:37 AM RADIATION DOSE METRICS: Total DLP (mGy-cm): 569.85 FINDINGS: Pulmonary arteries: Normal. No pulmonary emboli. Aorta: Unremarkable. No aortic aneurysm. No aortic dissection. Lungs: Unremarkable. No consolidation. No masses. Pleural spaces: Unremarkable. No pneumothorax. No pleural effusion. Heart: Unremarkable. No cardiomegaly. No pericardial effusion. Lymph nodes: Unremarkable. No enlarged lymph nodes. Liver: There is hypoattenuation of the hepatic parenchyma compatible with fatty infiltration. Bones/joints: Unremarkable. No acute fracture. Soft tissues: Unremarkable. CT/CT angio chest PE protcl [id number] IMPRESSION: 1. There is no evidence for pulmonary emboli. There are no acute chest findings. 2. Fatty infiltration of the liver Radiation Dose CTDIVOL = (mGy): DLP = 569.85 (mGy-cm)
--- NOTE | 2020-08-05 05:13 | XRR_ITS ---
PROCEDURE INFORMATION: Exam: XR Chest Exam date and time: 08/05/2020 5:33 AM Age: 69 years old Clinical indication: Chest pain; Additional info: Cp TECHNIQUE: Imaging protocol: XR of the chest. Views: 1 view. COMPARISON: CR XR chest 1V portable [id number] 08/04/2020 8:49 PM FINDINGS: Lungs: Unremarkable. No consolidation. Pleural spaces: Unremarkable. No pleural effusion. No pneumothorax. Heart/Mediastinum: Unremarkable. No cardiomegaly. Bones/joints: Unremarkable. XR/XR chest 1V portable [id number] IMPRESSION: No acute findings.
--- NOTE | 2020-08-05 05:13 | ECG_ITS ---
[facility] Test Date: 2020-08-05 Pat Name: Rubin Donnelly Department: Room: Gender: Male Cellophaner: AW : 1950 Requested By: Beatrice Gu Order Number: [id number] Yoli MD: Josie Meyer M.D. Measurements Intervals [place] Rate: 126 P: 38 AR: 158 QRS: 65 QRSD: 81 T: 28 QT: 313 QTc: 454 Interpretive Statements SINUS TACHYCARDIA ABNORMAL RHYTHM ECG Compared to ECG 08/03/2020 23:29:30 Supraventricular rhythm no longer present Electronically Signed On 08-06-2020 10:37:52 CDT by Josie Meyer M.D. [id number]
--- NOTE | 2020-08-05 05:15 | W.ED.CHESTPA ---
Documented by User: Beatrice Gu MD 08/05/20 05:18 HPI - Chest Pain General: Chief Complaint: Chest Pain Stated Complaint: chest pain Time Seen by Provider: 08/05/20 05:11 Source: patient Mode of arrival: ambulatory Limitations: no limitations History of Present Illness: HPI narrative: 69-year-old male who is an alcoholic is been in the ER 3 times last 4 days. He states he had a fall 2 days ago and has been having chest pain in the center of his chest. He states pain is been sharp in nature he was seen here 2 days ago for this. He is also seen earlier today for this as well. Patient just recently left the ER states pain got much worse. He states that sharp and rates it an 8 out of 10. He denies any vomiting or diarrhea. He states is much worse with palpation. Denies any fevers. Associated symptoms: Deny abdominal pain, dyspnea, fever(s), nausea or vomiting Review of Systems Const: Denies: fever(s), chills, body aches or change in appetite Eyes: Denies: blurry vision or eye discomfort ENMT: Denies: throat pain or dental pain Card: Reports: chest pain Resp: Denies: dyspnea GI: Denies: abdominal pain, nausea, vomiting or diarrhea : Denies: dysuria Musc: Denies: neck pain or back pain Skin/Breast: Denies: rash Neuro: Denies: headache(s) Psych: Denies: depression J Carlos/Lymph: Denies: easy bruising All/Imm: Denies: urticaria PFSH ED PFSH: Medical History (Updated 08/05/20 @ 07:11 by Dorian Lagunas DO) Alcohol abuse Arthritis Chronic low back pain Long-term use of high-risk medication Continue to monitor use Tobacco abuse counselled to quit smoking Surgical History History of appendectomy History of spinal surgery 25 years ago l4/5 fusion per pt Family History Father Stroke Other Hypertension Social History Smoking and tobacco status: current some day smoker cigarettes [ Other cigarette details: 1 PK WEEK ] Alcohol intake: former Desire information about substance/drug rehabilitation?: No Physical Exam Const: COMMON NORMALS: no acute distress, patient oriented x3 and healthy appearing HENMT: COMMON NORMALS: normocephalic and atraumatic HEAD & SCALP: normocephalic and atraumatic Eye: COMMON NORMALS: Equal, round and reactive pupils present and EOMs intact bilaterally PUPIL: Yes Equal, round and reactive pupils present Neck/C-Spine: COMMON NORMALS: full ROM and supple Chest: COMMONS NORMALS: normal inspection of the chest OTHER: Point tender in center chest Resp: COMMON NORMALS: normal respiratory effort, No retractions, No use of accessory muscles and clear to auscultation bilaterally AUSCULTATION: clear to auscultation bilaterally Cardio: COMMON NORMALS: regular rate, regular rhythm and No murmurs present (Cardio) RATE: regular rate RHYTHM: regular rhythm GI: COMMON NORMALS: Normal to inspection, nondistended, normoactive bowel sounds present, Soft to palpation, non-tender and no masses PALPATION: Yes Soft to palpation Extremity: COMMON NORMALS: normal to inspection and full ROM Neuro: COMMON NORMALS: patient oriented x3, moves all extremities and no focal motor deficits Psych: COMMON NORMALS: mental status grossly normal, Normal thought process present and cooperative THOUGHT PROCESS: Normal thought process present Skin: COMMON NORMALS: no rashes or lesions noted and no wounds GENERAL SKIN EXAM: no rashes or lesions noted Course Vital Signs: Vital signs: Vital Signs Temperature 97.6 F 08/05/20 05:07 Pulse Rate 91 08/05/20 06:50 Respiratory Rate 18 08/05/20 06:50 Blood Pressure 162/108 08/05/20 06:50 Pulse Oximetry 98 08/05/20 06:50 MDM - Chest Pain Lab Data: Labs: Lab Results 08/05/20 08/05/20 08/05/20 Range/Units 05:35 05:35 05:35 WBC 6.5 (4.0-10.0) 10^3/ uL RBC 4.29 (4.1-5.3) 10^6/u L Hgb 11.1 L (11.7-16.6) g/dL Hct 35.0 L (42.0-52.0) % MCV 81.6 (80-94) fL MCH 25.9 L (28.0-34.0) pg MCHC 31.7 (30.0-36.0) g/dL RDW 15.4 H (12.1-15.1) % Plt Count 327 (130-400) 10^3/c mm MPV 10.3 (7.4-10.4) fL Neut % (Auto) 55.8 % Lymph % (Auto) 34.1 % Sunflower % (Auto) 6.9 % Eos % (Auto) 1.2 % Baso % (Auto) 1.7 % Neut # (Auto) 3.61 (1.8-7.7) 10^3/u L Lymph # (Auto) 2.2 (0.8-4.8) 10^3/u L Sunflower # (Auto) 0.5 (0.2-0.9) 10^3/u L Eos # (Auto) 0.1 (0.0-0.8) 10^3/u L Baso # (Auto) 0.1 (0.0-0.1) 10^3/u L Nucleated RBC % (a uto) 0 % Nucleated RBCs # 0.0 /100WBC PT 14.80 (12.1-14.9) SECO NDS INR 1.12 (0.8-1.2) Sodium 143 (136-145) mmol/L Potassium 3.7 (3.5-5.1) mmol/L Chloride 105 (98-107) mmol/L Carbon Dioxide 23 (22-29) mmol/L Anion Gap 18.7 (5-19) BUN 12 (8-23) mg/dL Creatinine 1.7 H (0.7-1.2) mg/dL GFR Calculation 40.2 L (90-130) mL/min Glucose 108 (65-115) mg/dL Calculated Osmolal ity 296 H (285-295) mOsm/k g Calcium 7.6 L (8.5-10.5) mg/dL Total Bilirubin 0.6 (0.15-1.2) mg/dL AST 50 H (0-40) U/L ALT 24 (0-41) U/L Alkaline Phosphata se 219 H (40-130) IU/L Troponin T Baselin e (0-15) ng/L Total Protein 6.7 (6.6-8.7) g/dL Albumin 3.9 (3.5-5.2) g/dL Globulin 2.8 (1.3-4.6) g/dL Lipase 105 H (13-60) U/L 08/05/20 Range/Units 05:35 WBC (4.0-10.0) 10^3/ uL RBC (4.1-5.3) 10^6/u L Hgb (11.7-16.6) g/dL Hct (42.0-52.0) % MCV (80-94) fL MCH (28.0-34.0) pg MCHC (30.0-36.0) g/dL RDW (12.1-15.1) % Plt Count (130-400) 10^3/c mm MPV (7.4-10.4) fL Neut % (Auto) % Lymph % (Auto) % Sunflower % (Auto) % Eos % (Auto) % Baso % (Auto) % Neut # (Auto) (1.8-7.7) 10^3/u L Lymph # (Auto) (0.8-4.8) 10^3/u L Sunflower # (Auto) (0.2-0.9) 10^3/u L Eos # (Auto) (0.0-0.8) 10^3/u L Baso # (Auto) (0.0-0.1) 10^3/u L Nucleated RBC % (a uto) % Nucleated RBCs # /100WBC PT (12.1-14.9) SECO NDS INR (0.8-1.2) Sodium (136-145) mmol/L Potassium (3.5-5.1) mmol/L Chloride (98-107) mmol/L Carbon Dioxide (22-29) mmol/L Anion Gap (5-19) BUN (8-23) mg/dL Creatinine (0.7-1.2) mg/dL GFR Calculation (90-130) mL/min Glucose (65-115) mg/dL Calculated Osmolal ity (285-295) mOsm/k g Calcium (8.5-10.5) mg/dL Total Bilirubin (0.15-1.2) mg/dL AST (0-40) U/L ALT (0-41) U/L Alkaline Phosphata se (40-130) IU/L Troponin T Baselin e 25 H (0-15) ng/L Total Protein (6.6-8.7) g/dL Albumin (3.5-5.2) g/dL Globulin (1.3-4.6) g/dL Lipase (13-60) U/L Discharge Plan Discharge Patient Disposition: Home Clinical Impression: Acute alcoholic gastritis, ETOH abuse, Atypical chest pain Condition: Stable Prescriptions: New Protonix 40 mg tablet,delayed release (DR/EC) 40 mg PO DAILY 56 Days Qty: 60 RF: 0 Discontinued famotidine [Pepcid] 20 mg tablet 20 mg PO BID Qty: 20 RF: 0 No Action diclofenac sodium [Voltaren Arthritis Pain] 1 % gel 2 g topical QID Qty: 100 RF: 2 methotrexate sodium 2.5 mg tablet 2.5 mg PO .COMPLEX RF: 0 folic acid 1 mg tablet 1 mg PO DAILY RF: 0 lisinopril 10 mg tablet 10 mg PO DAILY RF: 0 prednisone 5 mg tablet See Rx Instructions PO DAILY Qty: 60 RF: 0 trazodone 50 mg Tablet 50 mg PO BEDTIME RF: 0 hydrocodone-acetaminophen 5-325 mg tablet 1 tab PO Q6H PRN (Reason: pain) Qty: 20 RF: 0 Discharge Orders: Discharge ED (Routine); Ordered 08/05/20 Ordered By: Dorian Lagunas Referrals: Loni Che PA [Primary Care Provider] - Discharge Diet: Usual diet Discharge Activity: Increase activity as tolerated Patient Instructions: Alcoholism, Abuse of Alcohol (ED), Opioid Safety Sign Out Sign Out Data: Patient Sign Out occurred on 08/05/20 at 06:29. Patient's care was discussed, and care was transferred from to Dorian Lagunas DO. Coding Level of Care Code ED Fruit Canner for Chg Fwd Exam Comprehensive Documented by User: Dorian Lagunas DO 08/05/20 07:14 HPI - Chest Pain General: Chief Complaint: Chest Pain Stated Complaint: chest pain Time Seen by Provider: 08/05/20 05:11 PFSH ED PFSH: Medical History (Updated 08/05/20 @ 07:11 by Dorian Lagunas DO) Alcohol abuse Arthritis Chronic low back pain Long-term use of high-risk medication Continue to monitor use Tobacco abuse counselled to quit smoking Surgical History History of appendectomy History of spinal surgery 25 years ago l4/5 fusion per pt Family History Father Stroke Other Hypertension Social History Smoking and tobacco status: current some day smoker cigarettes [ Other cigarette details: 1 PK WEEK ] Alcohol intake: former Desire information about substance/drug rehabilitation?: No Course Vital Signs: Vital signs: Vital Signs Temperature 97.6 F 08/05/20 05:07 Pulse Rate 91 08/05/20 06:50 Respiratory Rate 18 08/05/20 06:50 Blood Pressure 162/108 08/05/20 06:50 Pulse Oximetry 98 08/05/20 06:50 MDM - Chest Pain MDM Narrative: Medical decision making narrative: Care assumed at change of shift from Dr. Gu. CTA chest is negative. Discussed with the patient is having nausea and vomiting chest pain for several days he fell and hit his chest last night. He is feeling a little bit better now discussed the importance of stopping alcohol. We will have him stop his Pepcid switch to Protonix encourage alcohol abstinence follow-up as per care Lab Data: Labs: Lab Results 08/05/20 08/05/20 08/05/20 Range/Units 05:35 05:35 05:35 WBC 6.5 (4.0-10.0) 10^3/ uL RBC 4.29 (4.1-5.3) 10^6/u L Hgb 11.1 L (11.7-16.6) g/dL Hct 35.0 L (42.0-52.0) % MCV 81.6 (80-94) fL MCH 25.9 L (28.0-34.0) pg MCHC 31.7 (30.0-36.0) g/dL RDW 15.4 H (12.1-15.1) % Plt Count 327 (130-400) 10^3/c mm MPV 10.3 (7.4-10.4) fL Neut % (Auto) 55.8 % Lymph % (Auto) 34.1 % Sunflower % (Auto) 6.9 % Eos % (Auto) 1.2 % Baso % (Auto) 1.7 % Neut # (Auto) 3.61 (1.8-7.7) 10^3/u L Lymph # (Auto) 2.2 (0.8-4.8) 10^3/u L Sunflower # (Auto) 0.5 (0.2-0.9) 10^3/u L Eos # (Auto) 0.1 (0.0-0.8) 10^3/u L Baso # (Auto) 0.1 (0.0-0.1) 10^3/u L Nucleated RBC % (a uto) 0 % Nucleated RBCs # 0.0 /100WBC PT 14.80 (12.1-14.9) SECO NDS INR 1.12 (0.8-1.2) Sodium 143 (136-145) mmol/L Potassium 3.7 (3.5-5.1) mmol/L Chloride 105 (98-107) mmol/L Carbon Dioxide 23 (22-29) mmol/L Anion Gap 18.7 (5-19) BUN 12 (8-23) mg/dL Creatinine 1.7 H (0.7-1.2) mg/dL GFR Calculation 40.2 L (90-130) mL/min Glucose 108 (65-115) mg/dL Calculated Osmolal ity 296 H (285-295) mOsm/k g Calcium 7.6 L (8.5-10.5) mg/dL Total Bilirubin 0.6 (0.15-1.2) mg/dL AST 50 H (0-40) U/L ALT 24 (0-41) U/L Alkaline Phosphata se 219 H (40-130) IU/L Troponin T Baselin e (0-15) ng/L Total Protein 6.7 (6.6-8.7) g/dL Albumin 3.9 (3.5-5.2) g/dL Globulin 2.8 (1.3-4.6) g/dL Lipase 105 H (13-60) U/L 08/05/20 Range/Units 05:35 WBC (4.0-10.0) 10^3/ uL RBC (4.1-5.3) 10^6/u L Hgb (11.7-16.6) g/dL Hct (42.0-52.0) % MCV (80-94) fL MCH (28.0-34.0) pg MCHC (30.0-36.0) g/dL RDW (12.1-15.1) % Plt Count (130-400) 10^3/c mm MPV (7.4-10.4) fL Neut % (Auto) % Lymph % (Auto) % Sunflower % (Auto) % Eos % (Auto) % Baso % (Auto) % Neut # (Auto) (1.8-7.7) 10^3/u L Lymph # (Auto) (0.8-4.8) 10^3/u L Sunflower # (Auto) (0.2-0.9) 10^3/u L Eos # (Auto) (0.0-0.8) 10^3/u L Baso # (Auto) (0.0-0.1) 10^3/u L Nucleated RBC % (a uto) % Nucleated RBCs # /100WBC PT (12.1-14.9) SECO NDS INR (0.8-1.2) Sodium (136-145) mmol/L Potassium (3.5-5.1) mmol/L Chloride (98-107) mmol/L Carbon Dioxide (22-29) mmol/L Anion Gap (5-19) BUN (8-23) mg/dL Creatinine (0.7-1.2) mg/dL GFR Calculation (90-130) mL/min Glucose (65-115) mg/dL Calculated Osmolal ity (285-295) mOsm/k g Calcium (8.5-10.5) mg/dL Total Bilirubin (0.15-1.2) mg/dL AST (0-40) U/L ALT (0-41) U/L Alkaline Phosphata se (40-130) IU/L Troponin T Baselin e 25 H (0-15) ng/L Total Protein (6.6-8.7) g/dL Albumin (3.5-5.2) g/dL Globulin (1.3-4.6) g/dL Lipase (13-60) U/L Discharge Plan Discharge Patient Disposition: Home Clinical Impression: Acute alcoholic gastritis, ETOH abuse, Atypical chest pain Condition: Stable Prescriptions: New Protonix 40 mg tablet,delayed release (DR/EC) 40 mg PO DAILY 56 Days Qty: 60 RF: 0 Discontinued famotidine [Pepcid] 20 mg tablet 20 mg PO BID Qty: 20 RF: 0 No Action diclofenac sodium [Voltaren Arthritis Pain] 1 % gel 2 g topical QID Qty: 100 RF: 2 methotrexate sodium 2.5 mg tablet 2.5 mg PO .COMPLEX RF: 0 folic acid 1 mg tablet 1 mg PO DAILY RF: 0 lisinopril 10 mg tablet 10 mg PO DAILY RF: 0 prednisone 5 mg tablet See Rx Instructions PO DAILY Qty: 60 RF: 0 trazodone 50 mg Tablet 50 mg PO BEDTIME RF: 0 hydrocodone-acetaminophen 5-325 mg tablet 1 tab PO Q6H PRN (Reason: pain) Qty: 20 RF: 0 Discharge Orders: Discharge ED (Routine); Ordered 08/05/20 Ordered By: Dorian Lagunas Referrals: Loni Che PA [Primary Care Provider] - Discharge Diet: Usual diet Discharge Activity: Increase activity as tolerated Patient Instructions: Alcoholism, Abuse of Alcohol (ED), Opioid Safety Sign Out Sign Out Data: Patient Sign Out occurred on 08/05/20 at 06:29. Patient's care was discussed, and care was transferred from to Dorian Lagunas DO. Coding Level of Care Code ED Fruit Canner for Chg Fwd Exam Comprehensive
[2020-08-05] MEDS: ondansetron 2 mg/ML SDV 2 mL 4 MG IVP (05:30)
[2020-08-05 05:37] LABS: Basophils # 0.1 10^3/uL (0.0-0.1); Basophils % 1.7 %; Eosinophils # 0.1 10^3/uL (0.0-0.8); Eosinophils % 1.2 %; Hemoglobin 11.1 g/dL (11.7-16.6); Lymphocytes # 2.2 10^3/uL (0.8-4.8); Lymphocytes % 34.1 %; Mean Corpuscular HGB Conc 31.7 g/dL (30.0-36.0); Mean Corpuscular Hemoglobin 25.9 pg (28.0-34.0); Mean Corpuscular Volume 81.6 fL (80-94); Mean Platelet Volume 10.3 fL (7.4-10.4); Monocytes # 0.5 10^3/uL (0.2-0.9); Monocytes % 6.9 %; Neutrophils # 3.61 10^3/uL (1.8-7.7); Neutrophils % 55.8 %; Nucleated Red Blood Cells % 0 %; Platelet Count 327 10^3/cmm (130-400); Red Blood Count 4.29 10^6/uL (4.1-5.3); Red Cell Distribution Width 15.4 % (12.1-15.1); White Blood Count 6.5 10^3/uL (4.0-10.0)
[2020-08-05] MEDS: iodixanol 320 mg/mL 100mL Btl IV (05:51)
[2020-08-05] MEDS: sodium chloride 0.9% 1,000 ML 999 ML IV (05:55)
[2020-08-05 05:59] LABS: INR 1.12 (0.8-1.2)
[2020-08-05 06:08] LABS: Troponin(5th) Baseline 25 ng/L (0-15)
[2020-08-05 06:11] LABS: Alanine Aminotransferase 24 U/L (0-41); Albumin Level 3.9 g/dL (3.5-5.2); Alkaline Phosphatase 219 IU/L (40-130); Anion Gap 18.7 (5-19); Aspartate Amino Transferase 50 U/L (0-40); Blood Urea Nitrogen 12 mg/dL (8-23); Calcium 7.6 mg/dL (8.5-10.5); Carbon Dioxide 23 mmol/L (22-29); Chloride 105 mmol/L (98-107); Globulin 2.8 g/dL (1.3-4.6); Glomerular Filtration Rate 40.2 mL/min (90-130); Glucose 108 mg/dL (65-115); Lipase 105 U/L (13-60); Osmolality Calculated 296 mOsm/kg (285-295); Potassium 3.7 mmol/L (3.5-5.1); Sodium 143 mmol/L (136-145); Total Bilirubin 0.6 mg/dL (0.15-1.2); Total Protein 6.7 g/dL (6.6-8.7)
[2020-08-05] MEDS: promethazine 25 mg/mL SDV 1 mL IM (06:18)
[2020-08-05 06:44] VITALS: BP 162/108; PULSE 89; RESP 16; O2SAT 96
[2020-08-05 06:50] VITALS: BP 162/108; PULSE 91; RESP 18; O2SAT 98
--- NOTE | 2020-08-05 06:50 | PC.NURSE ---
Received report assumed care. No changes noted from report. Fluids completed. Continue to monitor.
[2020-08-05 07:14] VITALS: BP 162/108; PULSE 91; RESP 18; TEMP 36.3; O2SAT 96
== END 2020-08-05 07:17 | disposition home or self-care (01) ==
PROVIDERS: Emergency Medicine; Emergency Provider Family Medicine; PCP Physician Assistant
DX: K29.20 Alcoholic gastritis without bleeding (principal); F10.10 Alcohol abuse, uncomplicated; R07.89 Other chest pain; F17.210 Nicotine dependence, cigarettes, uncomplicated
CPT/HCPCS: 71045; 71275; 80053; 83690; 84484; 85025; 85610; 93005; 96361; 96372; 96374; 99281; 99284; J2405; J2550; J7030; Q9967

== ENCOUNTER 2020-08-05 19:10 | Emergency (ER) | payer MEDICARE, MEDICAID, SELFPAY ==
[2020-08-05 19:20] VITALS: BP 148/112; PULSE 100; RESP 18; O2SAT 99; BMI 27.6
--- NOTE | 2020-08-05 19:26 | W.ED.ALCOHOL ---
Documented by User: Beatrice Gu MD 08/05/20 20:10 HPI - Alcohol General: Chief Complaint: Alcohol Stated Complaint: Wants Detox Time Seen by Provider: 08/05/20 19:12 Source: patient Mode of arrival: ambulatory Limitations: no limitations History of Present Illness: HPI narrative: 69-year-old male who states that he is a chronic alcoholic. Patient's been in the ER multiple times over the last week. He states that he would like to get help with his drinking. He states that he would like to go to a detox center. He denies any suicidal homicidal ideations. He has no other medical complaints. Associated symptoms: Deny abdominal pain, depression, nausea or vomiting Review of Systems Const: Denies: fever(s), chills, body aches or change in appetite Eyes: Denies: blurry vision or eye discomfort ENMT: Denies: throat pain or dental pain Card: Denies: chest pain Resp: Denies: dyspnea GI: Denies: abdominal pain, nausea, vomiting or diarrhea : Denies: dysuria Musc: Denies: neck pain or back pain Skin/Breast: Denies: rash Neuro: Denies: headache(s) Psych: Denies: depression J Carlos/Lymph: Denies: easy bruising All/Imm: Denies: urticaria PFSH ED PFSH: Medical History (Updated 08/05/20 @ 07:11 by Dorian Lagunas DO) Alcohol abuse Arthritis Chronic low back pain Long-term use of high-risk medication Continue to monitor use Tobacco abuse counselled to quit smoking Surgical History History of appendectomy History of spinal surgery 25 years ago l4/5 fusion per pt Family History Father Stroke Other Hypertension Social History Smoking and tobacco status: current some day smoker cigarettes [ Other cigarette details: 1 PK WEEK ] Alcohol intake: former Desire information about substance/drug rehabilitation?: No Physical Exam Const: COMMON NORMALS: no acute distress, patient oriented x3 and healthy appearing HENMT: COMMON NORMALS: normocephalic and atraumatic HEAD & SCALP: normocephalic and atraumatic Eye: COMMON NORMALS: Equal, round and reactive pupils present and EOMs intact bilaterally PUPIL: Yes Equal, round and reactive pupils present Neck/C-Spine: COMMON NORMALS: full ROM and supple Chest: COMMONS NORMALS: normal inspection of the chest and normal palpation of entire chest wall Resp: COMMON NORMALS: normal respiratory effort, No retractions, No use of accessory muscles and clear to auscultation bilaterally AUSCULTATION: clear to auscultation bilaterally Cardio: COMMON NORMALS: regular rate, regular rhythm and No murmurs present (Cardio) RATE: regular rate RHYTHM: regular rhythm GI: COMMON NORMALS: Normal to inspection, nondistended, normoactive bowel sounds present, Soft to palpation, non-tender and no masses PALPATION: Yes Soft to palpation Extremity: COMMON NORMALS: normal to inspection and full ROM Neuro: COMMON NORMALS: patient oriented x3, moves all extremities and no focal motor deficits Psych: COMMON NORMALS: mental status grossly normal, Normal thought process present and cooperative THOUGHT PROCESS: Normal thought process present Skin: COMMON NORMALS: no rashes or lesions noted and no wounds GENERAL SKIN EXAM: no rashes or lesions noted Course Vital Signs: Vital signs: Vital Signs Pulse Rate 82 08/05/20 20:05 Respiratory Rate 16 08/05/20 20:05 Blood Pressure 156/88 08/05/20 20:05 Pulse Oximetry 97 08/05/20 20:05 MDM - Alcohol MDM Narrative: Medical decision making narrative: Patient presents here with alcohol intoxication. I explained to him that he has to get outpatient detox as we do not do detox here. He has no psychiatric complaints. I did write him Librium I informed him to only take if he is having withdrawal symptoms. I gave him strict instructions not to take the Librium if he is drinking. He is return if worsening. Discharge Plan Discharge Patient Disposition: Home Clinical Impression: ETOH abuse Condition: Stable Prescriptions: New chlordiazepoxide HCl 10 mg capsule 10 mg PO Q6H PRN (Reason: withdrawal symptoms) Qty: 20 RF: 0 No Action diclofenac sodium [Voltaren Arthritis Pain] 1 % gel 2 g topical QID Qty: 100 RF: 2 methotrexate sodium 2.5 mg tablet 2.5 mg PO .COMPLEX RF: 0 folic acid 1 mg tablet 1 mg PO DAILY RF: 0 lisinopril 10 mg tablet 10 mg PO DAILY RF: 0 prednisone 5 mg tablet See Rx Instructions PO DAILY Qty: 60 RF: 0 Protonix 40 mg tablet,delayed release (DR/EC) 40 mg PO DAILY 56 Days Qty: 60 RF: 0 trazodone 50 mg Tablet 50 mg PO BEDTIME RF: 0 hydrocodone-acetaminophen 5-325 mg tablet 1 tab PO Q6H PRN (Reason: pain) Qty: 20 RF: 0 Discharge Orders: Discharge ED (Routine); Ordered 08/05/20 Ordered By: Beatrice Gu Referrals: Loni Che PA [Primary Care Provider] - Discharge Activity: Resume usual activity Patient Instructions: Abuse of Alcohol (ED) Coding Level of Care Code ED Shirt Closer for Chg Fwd Exam Comprehensive Documented by User: RUCHI Easley 08/05/20 20:25 HPI - Alcohol General: Chief Complaint: Alcohol Stated Complaint: Wants Detox Time Seen by Provider: 08/05/20 19:12 [facility] ED PFSH: Medical History (Updated 08/05/20 @ 07:11 by Dorian Lagunas DO) Alcohol abuse Arthritis Chronic low back pain Long-term use of high-risk medication Continue to monitor use Tobacco abuse counselled to quit smoking Surgical History History of appendectomy History of spinal surgery 25 years ago l4/5 fusion per pt Family History Father Stroke Other Hypertension Social History Smoking and tobacco status: current some day smoker cigarettes [ Other cigarette details: 1 PK WEEK ] Alcohol intake: former Desire information about substance/drug rehabilitation?: No Course Vital Signs: Vital signs: Vital Signs Pulse Rate 82 08/05/20 20:05 Respiratory Rate 16 08/05/20 20:05 Blood Pressure 156/88 08/05/20 20:05 Pulse Oximetry 97 08/05/20 20:05 Discharge Plan Discharge Patient Disposition: Home Clinical Impression: ETOH abuse Condition: Stable Prescriptions: New chlordiazepoxide HCl 10 mg capsule 10 mg PO Q6H PRN (Reason: withdrawal symptoms) Qty: 20 RF: 0 No Action diclofenac sodium [Voltaren Arthritis Pain] 1 % gel 2 g topical QID Qty: 100 RF: 2 methotrexate sodium 2.5 mg tablet 2.5 mg PO .COMPLEX RF: 0 folic acid 1 mg tablet 1 mg PO DAILY RF: 0 lisinopril 10 mg tablet 10 mg PO DAILY RF: 0 prednisone 5 mg tablet See Rx Instructions PO DAILY Qty: 60 RF: 0 Protonix 40 mg tablet,delayed release (DR/EC) 40 mg PO DAILY 56 Days Qty: 60 RF: 0 trazodone 50 mg Tablet 50 mg PO BEDTIME RF: 0 hydrocodone-acetaminophen 5-325 mg tablet 1 tab PO Q6H PRN (Reason: pain) Qty: 20 RF: 0 Discharge Orders: Discharge ED (Routine); Ordered 08/05/20 Ordered By: Beatrice Gu Referrals: Loni Che PA [Primary Care Provider] - Discharge Activity: Resume usual activity Patient Instructions: Abuse of Alcohol (ED) Coding Level of Care Code ED Shirt Closer for Ed Fwd Exam Comprehensive
[2020-08-05 20:05] VITALS: BP 156/88; PULSE 82; RESP 16; O2SAT 97
== END 2020-08-05 20:06 | disposition home or self-care (01) ==
PROVIDERS: Emergency Provider Emergency Medicine; PCP Physician Assistant
DX: F10.10 Alcohol abuse, uncomplicated (principal); F17.210 Nicotine dependence, cigarettes, uncomplicated
CPT/HCPCS: 99281

== ENCOUNTER 2020-08-06 02:38 | Emergency (ER) | payer MEDICARE, MEDICAID, SELFPAY ==
[2020-08-06 02:41] VITALS: BP 152/93; PULSE 110; RESP 18; TEMP 36.2; O2SAT 99; BMI 22.8
[2020-08-06] MEDS: LORazepam 1 mg Tablet PO ×2 (02:56→03:13)
--- NOTE | 2020-08-06 02:57 | ED_ITS ---
HPI - Anxiety General: Chief Complaint: Anxiety Stated Complaint: tingling in face/shaky Time Seen by Provider: 08/06/20 02:42 Source: patient Mode of arrival: ambulatory Limitations: no limitations History of Present Illness: HPI narrative: 69-year-old male has history alcoholism is well-known to the ER. He states he has been feeling anxious and having some paresthesias to his face. States that his had gone to [place] and is feeling anxious without her. He denies any suicidal homicidal ideations. She denies any chest pain. Patient has no tremors here. Denies any seizures. MD complaint: anxiety Associated symptoms: Deny chest pain, chills, fever(s), headache(s), nausea or vomiting Review of Systems Const: Denies: fever(s), chills, body aches or change in appetite Eyes: Denies: blurry vision or eye discomfort ENMT: Denies: throat pain or dental pain Card: Denies: chest pain Resp: Denies: dyspnea GI: Denies: abdominal pain, nausea, vomiting or diarrhea : Denies: dysuria Musc: Denies: neck pain or back pain Skin/Breast: Denies: rash Neuro: Denies: headache(s) Psych: Reports: anxiety J Carlos/Lymph: Denies: easy bruising All/Imm: Denies: urticaria PFSH ED PFSH: Medical History (Updated 08/06/20 @ 02:58 by Beatrice Gu MD) Alcohol abuse Arthritis Chronic low back pain Long-term use of high-risk medication Continue to monitor use Tobacco abuse counselled to quit smoking Surgical History History of appendectomy History of spinal surgery 25 years ago l4/5 fusion per pt Family History Father Stroke Other Hypertension Social History Smoking and tobacco status: current some day smoker cigarettes [ Other cig arette details: 1 PK WEEK ] Alcohol intake: former Desire information about substance/drug rehabilitation?: No Physical Exam Const: COMMON NORMALS: no acute distress, patient oriented x3 and healthy appearing HENMT: COMMON NORMALS: normocephalic and atraumatic HEAD & SCALP: normocephalic and atraumatic Eye: COMMON NORMALS: Equal, round and reactive pupils present and EOMs intact bilaterally PUPIL: Yes Equal, round and reactive pupils present Neck/C-Spine: COMMON NORMALS: full ROM and supple Chest: COMMONS NORMALS: normal inspection of the chest and normal palpation of entire chest wall Resp: COMMON NORMALS: normal respiratory effort, No retractions, No use of accessory muscles and clear to auscultation bilaterally AUSCULTATION: clear to auscultation bilaterally Cardio: COMMON NORMALS: regular rate, regular rhythm and No murmurs present (Cardio) RATE: regular rate RHYTHM: regular rhythm GI: COMMON NORMALS: Normal to inspection, nondistended, normoactive bowel sounds present, Soft to palpation, non-tender and no masses PALPATION: Yes Soft to palpation Extremity: COMMON NORMALS: normal to inspection and full ROM Neuro: COMMON NORMALS: patient oriented x3, moves all extremities and no focal motor deficits Psych: COMMON NORMALS: mental status grossly normal, Normal thought process present and cooperative THOUGHT PROCESS: Normal thought process present Skin: COMMON NORMALS: no rashes or lesions noted and no wounds GENERAL SKIN EXAM: no rashes or lesions noted Course Vital Signs: Vital signs: Vital Signs Temperature 97.1 F L 08/06/20 02:41 Pulse Rate 110 H 08/06/20 02:41 Respiratory Rate 18 08/06/20 02:41 Blood Pressure 152/93 08/06/20 02:41 Pulse Oximetry 99 08/06/20 02:41 MDM - Anxiety MDM Narrative: Medical decision making narrative: X-ray presents with anxiety. He has no signs of alcohol withdrawals with no tremors. He denies any suicidal homicidal thoughts. Patient given Ativan he feels we will send him with 1 Ativan at home. He is to follow-up his PCP and return if worsening. Discharge Plan Discharge Patient Disposition: Home Clinical Impression: Acute anxiety, ETOH abuse Condition: Stable Prescriptions: No Action diclofenac sodium [Voltaren Arthritis Pain] 1 % gel 2 g topical QID Qty: 100 RF: 2 methotrexate sodium 2.5 mg tablet 2.5 mg PO .COMPLEX RF: 0 folic acid 1 mg tablet 1 mg PO DAILY RF: 0 lisinopril 10 mg tablet 10 mg PO DAILY RF: 0 prednisone 5 mg tablet See Rx Instructions PO DAILY Qty: 60 RF: 0 Protonix 40 mg tablet,delayed release (DR/EC) 40 mg PO DAILY 56 Days Qty: 60 RF: 0 trazodone 50 mg Tablet 50 mg PO BEDTIME RF: 0 hydrocodone-acetaminophen 5-325 mg tablet 1 tab PO Q6H PRN (Reason: pain) Qty: 20 RF: 0 chlordiazepoxide HCl 10 mg capsule 10 mg PO Q6H PRN (Reason: withdrawal symptoms) Qty: 20 RF: 0 Discharge Orders: Discharge ED (Routine); Ordered 08/06/20 Ordered By: Beatrice Gu Referrals: Loni Che PA [Primary Care Provider] - 1-3 days Discharge Diet: Advance as tolerated Discharge Activity: Resume usual activity Patient Instructions: Anxiety (ED) Coding Level of Care Code ED 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
[2020-08-06 03:17] VITALS: BP 150/88; PULSE 104; RESP 18; O2SAT 98
== END 2020-08-06 03:19 | disposition home or self-care (01) ==
PROVIDERS: Emergency Provider Emergency Medicine; PCP Physician Assistant
DX: F41.9 Anxiety disorder, unspecified (principal); F10.10 Alcohol abuse, uncomplicated; F17.210 Nicotine dependence, cigarettes, uncomplicated
CPT/HCPCS: 99283

== ENCOUNTER 2020-08-08 04:21 | Emergency (ER) | payer MEDICARE, MEDICAID, SELFPAY ==
[2020-08-08 04:22] VITALS: BP 157/89; PULSE 88; RESP 24; TEMP 36.6; O2SAT 100; BMI 27.4
--- NOTE | 2020-08-08 04:35 | W.ED.FALL ---
Documented by User: Gerson Yin MD 08/08/20 05:56 HPI - Fall General: Chief Complaint: Fall Stated Complaint: FALL Time Seen by Provider: 08/08/20 04:34 Source: patient and EMS Mode of arrival: EMS Limitations: no limitations History of Present Illness: HPI Narrative: Patient slipped and fell at home injuring his lower back. He reports a history of back surgery in the remote past. He states he has rods in his back. complaint: fall Onset (ago): hour(s) (Tonight) Fall from: standing Place fall occurred: home Loss of consciousness: None Prolonged down time: no Symptoms prior to fall: none Context: tripped/slipped Location of injury: back Severity: moderate Quality: sharp Associated symptoms-after fall: Reports no associated symptoms; Denies abdominal pain, chest pain, headache(s) or neck pain Review of Systems Const: Denies: fever(s) or chills Eyes: Denies: change in vision ENMT: Denies: throat pain Card: Denies: chest pain or palpitations Resp: Denies: dyspnea or wheezing GI: Denies: abdominal pain, nausea or vomiting : Denies: flank pain Musc: Reports: back pain; Denies: neck pain, extremity pain, joint pain or muscle weakness Skin/Breast: Denies: rash or pruritus Neuro: Denies: headache(s) or numbness in extremities Psych: Reports: anxiety; Denies: depression J Carlos/Lymph: Denies: enlarged lymph nodes PFSH ED PFSH: Medical History Alcohol abuse Arthritis Chronic low back pain Long-term use of high-risk medication Continue to monitor use Tobacco abuse counselled to quit smoking Surgical History History of appendectomy History of spinal surgery 25 years ago l4/5 fusion per pt Family History Father Stroke Other Hypertension Social History Smoking and tobacco status: current some day smoker cigarettes [ Other cigarette details: 1 PK WEEK ] Alcohol intake: former Desire information about substance/drug rehabilitation?: No Physical Exam Const: COMMON NORMALS: average body habitus, patient oriented x3, no limitations, alert and well nourished EXAM LIMITATIONS: altered mental status GENERAL APPEARANCE: cooperative and other (Anxious) ORIENTATION/CONSCIOUSNESS: Yes awake HENMT: COMMON NORMALS: normocephalic and atraumatic HEAD & SCALP: normal to inspection, normocephalic and atraumatic Eye: COMMON NORMALS: EOMs intact bilaterally Neck/C-Spine: COMMON NORMALS: full ROM, supple, no meningeal signs and no JVD GENERAL: Yes normal visual inspection and No tender Chest: COMMONS NORMALS: normal inspection of the chest and normal palpation of entire chest wall Resp: COMMON NORMALS: normal respiratory effort, No retractions and clear to auscultation bilaterally AUSCULTATION: clear to auscultation bilaterally Cardio: COMMON NORMALS: no JVD, regular rate, regular rhythm, No murmurs present (Cardio) and Peripheral pulses 2+ throughout RATE: regular rate RHYTHM: regular rhythm PERIPHERAL PULSES: Peripheral pulses 2+ throughout GI: COMMON NORMALS: Normal to inspection, nondistended, normoactive bowel sounds present, Soft to palpation and non-tender PALPATION: Yes Soft to palpation : COMMON NORMALS: Yes no CVA tenderness BLADDER/KIDNEY EXAM: Yes no CVA tenderness Back/Pelvis: COMMON NORMALS: no CVA tenderness THORACIC SPINE/UPPER BACK: Yes normal to inspection and Yes thoracic ROM normal LUMBAR SPINE/LOWER BACK: Yes lumbar ROM normal, Yes pain with ROM and Yes lumbar spinal tenderness (Pain to palpation along the entire lumbar spine. Old scar to the midline o) PELVIS: Yes buttocks normal SACROILIAC JOINTS: Yes SI joints normal SACRUM: no ecchymosis, no erythema and no swelling Extremity: COMMON NORMALS: normal to inspection, full ROM, capillary refill normal, no clubbing, cyanosis or edema and no pedal edema Neuro: COMMON NORMALS: patient oriented x3, CN's II-XII intact bilaterally, moves all extremities, no focal motor deficits, no sensory deficits noted and deep tendon reflexes 2+ bilaterally SENSORIUM/ORIENTATION: Yes alert MENINGEAL SIGNS: Yes no meningeal signs Psych: COMMON NORMALS: mental status grossly normal APPEARANCE: Yes grossly normal ATTITUDE: Yes Other attitude/behavior findings present (Psych) (Anxious) Skin: COMMON NORMALS: no rashes or lesions noted NARRATIVE SKIN EXAM: Ecchymosis to the right forearm from likely previous IV stick. GENERAL SKIN EXAM: no rashes or lesions noted Course Vital Signs: Vital signs: Vital Signs Temperature 97.8 F 08/08/20 04:22 Pulse Rate 87 08/08/20 08:08 Respiratory Rate 18 08/08/20 08:08 Blood Pressure 182/92 08/08/20 08:08 Pulse Oximetry 98 08/08/20 08:08 MDM - Fall MDM Narrative: Medical decision making narrative: care transitioned to Dr. Lagunas. ctas pending Differential Diagnosis: Fall Differential Diagnosis: Likely compression fracture Lab Data: Labs: Lab Results 08/08/20 Range/Units 07:13 Urine Color Yellow (Yellow) Urine Appearance Clear (CLEAR) Urine pH 8 H (5-7) Ur Specific Gravit y 1.005 (1.005-1.030) Urine Protein Neg (Negative) Urine Glucose (UA) Norm (Normal) Urine Ketones Negative (Negative) Urine Blood Neg (Negative) Urine Nitrate Negative (Negative) Urine Bilirubin Neg (Negative) Prot Sulfosalicyli c Acd Negative (Negative) Urine Urobilinogen Norm (Negative) mg/dL Ur Leukocyte Brittny ase Negative (Negative) Discharge Plan Discharge Patient Disposition: Home Clinical Impression: Low back pain Condition: Stable Prescriptions: New tizanidine 4 mg tablet 4 mg PO Q6H PRN (Reason: muscle spasticity) Qty: 20 RF: 0 No Action diclofenac sodium [Voltaren Arthritis Pain] 1 % gel 2 g topical QID Qty: 100 RF: 2 methotrexate sodium 2.5 mg tablet 2.5 mg PO .COMPLEX RF: 0 folic acid 1 mg tablet 1 mg PO DAILY RF: 0 lisinopril 10 mg tablet 10 mg PO DAILY RF: 0 prednisone 5 mg tablet See Rx Instructions PO DAILY Qty: 60 RF: 0 pantoprazole [Protonix] 40 mg tablet,delayed release (DR/EC) 40 mg PO DAILY 56 Days Qty: 60 RF: 0 trazodone 50 mg Tablet 50 mg PO BEDTIME RF: 0 hydrocodone-acetaminophen 5-325 mg tablet 1 tab PO Q6H PRN (Reason: pain) Qty: 20 RF: 0 chlordiazepoxide HCl 10 mg capsule 10 mg PO Q6H PRN (Reason: withdrawal symptoms) Qty: 20 RF: 0 Discharge Orders: Discharge ED (Routine); Ordered 08/08/20 Ordered By: Dorian Lagunas Referrals: Loni Che PA [Primary Care Provider] - Patient Instructions: Opioid Safety Activity Restrictions/Additional Instructions: Follow-up with your primary care doctor within the week. Sign Out Sign Out Data: Patient Sign Out occurred on 08/08/20 at 06:05. Patient's care was discussed, and care was transferred from to Dorian Lagunas DO. Coding Level of Care Code ED Salt Maker for Chg Fwd Exam Comprehensive Documented by User: Dorian Lagunas DO 08/12/20 06:52 HPI - Fall General: Chief Complaint: Fall Stated Complaint: FALL Time Seen by Provider: 08/08/20 04:34 PFSH ED PFSH: Medical History Alcohol abuse Arthritis Chronic low back pain Long-term use of high-risk medication Continue to monitor use Tobacco abuse counselled to quit smoking Surgical History History of appendectomy History of spinal surgery 25 years ago l4/5 fusion per pt Family History Father Stroke Other Hypertension Social History Smoking and tobacco status: current some day smoker cigarettes [ Other cigarette details: 1 PK WEEK ] Alcohol intake: former Desire information about substance/drug rehabilitation?: No Course Vital Signs: Vital signs: Vital Signs Temperature 97.8 F 08/08/20 04:22 Pulse Rate 87 08/08/20 08:08 Respiratory Rate 18 08/08/20 08:08 Blood Pressure 182/92 08/08/20 08:08 Pulse Oximetry 98 08/08/20 08:08 MDM - Fall MDM Narrative: Medical decision making narrative: Care assumed a change of shift. Reviewed imaging with patient will discharge home diclofenac as needed encourage patient to use that instead of the topical diclofenac. Also encouraged patient to stop drinking alcohol. Lab Data: Labs: Lab Results 08/08/20 Range/Units 07:13 Urine Color Yellow (Yellow) Urine Appearance Clear (CLEAR) Urine pH 8 H (5-7) Ur Specific Gravit y 1.005 (1.005-1.030) Urine Protein Neg (Negative) Urine Glucose (UA) Norm (Normal) Urine Ketones Negative (Negative) Urine Blood Neg (Negative) Urine Nitrate Negative (Negative) Urine Bilirubin Neg (Negative) Prot Sulfosalicyli c Acd Negative (Negative) Urine Urobilinogen Norm (Negative) mg/dL Ur Leukocyte Brittny ase Negative (Negative) Discharge Plan Discharge Patient Disposition: Home Clinical Impression: Low back pain Condition: Stable Prescriptions: New tizanidine 4 mg tablet 4 mg PO Q6H PRN (Reason: muscle spasticity) Qty: 20 RF: 0 No Action diclofenac sodium [Voltaren Arthritis Pain] 1 % gel 2 g topical QID Qty: 100 RF: 2 methotrexate sodium 2.5 mg tablet 2.5 mg PO .COMPLEX RF: 0 folic acid 1 mg tablet 1 mg PO DAILY RF: 0 lisinopril 10 mg tablet 10 mg PO DAILY RF: 0 prednisone 5 mg tablet See Rx Instructions PO DAILY Qty: 60 RF: 0 pantoprazole [Protonix] 40 mg tablet,delayed release (DR/EC) 40 mg PO DAILY 56 Days Qty: 60 RF: 0 trazodone 50 mg Tablet 50 mg PO BEDTIME RF: 0 hydrocodone-acetaminophen 5-325 mg tablet 1 tab PO Q6H PRN (Reason: pain) Qty: 20 RF: 0 chlordiazepoxide HCl 10 mg capsule 10 mg PO Q6H PRN (Reason: withdrawal symptoms) Qty: 20 RF: 0 Discharge Orders: Discharge ED (Routine); Ordered 08/08/20 Ordered By: Dorian Lagunas Referrals: Loni Che PA [Primary Care Provider] - Patient Instructions: Opioid Safety Activity Restrictions/Additional Instructions: Follow-up with your primary care doctor within the week. Sign Out Sign Out Data: Patient Sign Out occurred on 08/08/20 at 06:05. Patient's care was discussed, and care was transferred from to Dorian Lagunas DO. Coding Level of Care Code ED Salt Maker for Chg Fwd Exam Comprehensive
--- NOTE | 2020-08-08 04:39 | XRR_ITS ---
PROCEDURE INFORMATION: Exam: XR Lumbosacral Spine Exam date and time: 08/08/2020 6:02 AM Age: 69 years old Clinical indication: Pain and injury or trauma; Fall; Blunt trauma (contusions or hematomas); Low back pain; Injury date: 08/08/20; Injury details: Fell down stairs; Prior surgery; Surgery type: Appy, back TECHNIQUE: Imaging protocol: XR of the lumbosacral spine. Views: 2 or 3 views. COMPARISON: CR XR lumbar spine f/e only [id number] 08/30/2019 2:17 PM FINDINGS: Bones/joints: The patient has undergone L4-S1 posterior fusion with pedicle screws and rods. Alignment appears satisfactory. Degenerative changes are present in the upper lumbar spine with disc space narrowing and osteophytes. No fracture or other acute abnormalities are seen. There is no malalignment. Soft tissues: Unremarkable. XR/XR lumbar spine 2-3V* [id number] IMPRESSION: No acute abnormalities are seen in the lumbar spine.
[2020-08-08 04:40] VITALS: BP 148/101; PULSE 82; RESP 22; O2SAT 99
[2020-08-08] MEDS: LORazepam 2 mg/mL INJ 1 mL 1 MG IVP (04:55)
[2020-08-08] MEDS: ketorolac 60 mg/2 mL INJ 30 MG IVP (04:55)
[2020-08-08] MEDS: thiamine 100 mg Tablet PO (05:11)
--- NOTE | 2020-08-08 05:57 | PC.NURSE ---
patient to CT
[2020-08-08 06:41] VITALS: BP 153/93; O2SAT 100
[2020-08-08] MEDS: HYDROcodone-acetaminophen 5-325 mg Tablet 1 TAB PO (07:03)
[2020-08-08 07:33] LABS: Add Urine Microscopic? NO; Charge for UA Resulting for Rev
[2020-08-08 07:41] LABS: Bilirubin Urine Neg (Negative); Blood Urine Neg (Negative); Glucose Urine UA Norm (Normal); Ketones Urine Negative (Negative); Leukocyte Esterase Urine Negative (Negative); Nitrate Urine Negative (Negative); Protein Urine Neg (Negative); Specific Gravity, Urine 1.005 (1.005-1.030); Sulfosalicylic Acid Urine Negative (Negative); Urine Appearance Clear (CLEAR); Urine Color Yellow (Yellow); Urobilinogen Urine Norm (Negative); pH Urine 8 (5-7)
[2020-08-08 08:08] VITALS: BP 182/92; PULSE 87; RESP 18; O2SAT 98
== END 2020-08-08 08:19 | disposition home or self-care (01) ==
PROVIDERS: Emergency Provider Family Medicine; PCP Physician Assistant
DX: M54.5 Low back pain (principal); F17.210 Nicotine dependence, cigarettes, uncomplicated
CPT/HCPCS: 72100; 81003; 96374; 96375; 99283; J1885; J2060

== ENCOUNTER 2020-08-09 18:03 | Emergency (ER) | payer MEDICARE, MEDICAID, SELFPAY ==
[2020-08-09 18:07] VITALS: BP 130/80; PULSE 84; RESP 16; TEMP 37.1; O2SAT 100; BMI 27.4
--- NOTE | 2020-08-09 18:16 | ED_ITS ---
HPI - Psych General: Chief Complaint: Psychiatric Symptoms Stated Complaint: ETOH, EMOTIONAL DISTRESS Time Seen by Provider: 08/09/20 18:05 History of Present Illness: HPI Narrative: 69-year-old male with known alcoholic presents because he wants detox. Patient accepted to detox center tomorrow but they are not open today. He reports some emotional distress but no suicidal homicidal ideations. Patient is excepted to show up tomorrow for admission. He is brought in today because he called EMS 8 times and they were hoping that maybe we can get him into facility today however the facility not taking calls. No acute complaints Review of Systems Const: Denies: fever(s) or chills Card: Denies: chest pain or palpitations Resp: Denies: dyspnea or productive cough GI: Denies: abdominal pain, nausea or vomiting : Denies: flank pain Skin/Breast: Denies: rash PFSH ED PFSH: Medical History Alcohol abuse Arthritis Chronic low back pain Long-term use of high-risk medication Continue to monitor use Tobacco abuse counselled to quit smoking Surgical History History of appendectomy History of spinal surgery 25 years ago l4/5 fusion per pt Family History Father Stroke Other Hypertension Social History Smoking and tobacco status: current some day smoker cigarettes [ Other cigarette details: 1 PK WEEK ] Alcohol intake: former Desire information about substance/drug rehabilitation?: No Physical Exam Const: COMMON NORMALS: no acute distress GENERAL APPEARANCE: cooperative and odor of alcohol detected HENMT: COMMON NORMALS: normocephalic and moist oral mucous membranes HEAD & SCALP: normocephalic Resp: COMMON NORMALS: normal respiratory effort and clear to auscultation bilaterally EFFORT & INSPECTION: Yes able to speak in complete sentences AUSCULTATION: clear to auscultation bilaterally Cardio: COMMON NORMALS: regular rate RATE: regular rate GI: COMMON NORMALS: Soft to palpation and non-tender PALPATION: Yes Soft to palpation Extremity: COMMON NORMALS: full ROM Neuro: COMMON NORMALS: no focal motor deficits Psych: APPEARANCE: Yes unkempt Skin: COMMON NORMALS: no rashes or lesions noted GENERAL SKIN EXAM: no rashes or lesions noted Discharge Plan Discharge Prescriptions: No Action diclofenac sodium [Voltaren Arthritis Pain] 1 % gel 2 g topical QID Qty: 100 RF: 2 methotrexate sodium 2.5 mg tablet 2.5 mg PO .COMPLEX RF: 0 folic acid 1 mg tablet 1 mg PO DAILY RF: 0 lisinopril 10 mg tablet 10 mg PO DAILY RF: 0 prednisone 5 mg tablet See Rx Instructions PO DAILY Qty: 60 RF: 0 Protonix 40 mg tablet,delayed release (DR/EC) 40 mg PO DAILY 56 Days Qty: 60 RF: 0 trazodone 50 mg Tablet 50 mg PO BEDTIME RF: 0 hydrocodone-acetaminophen 5-325 mg tablet 1 tab PO Q6H PRN (Reason: pain) Qty: 20 RF: 0 chlordiazepoxide HCl 10 mg capsule 10 mg PO Q6H PRN (Reason: withdrawal symptoms) Qty: 20 RF: 0 tizanidine 4 mg tablet 4 mg PO Q6H PRN (Reason: muscle spasticity) Qty: 20 RF: 0 Coding Level of Care Code ED Rear Load Truck Driver for Ed Becerril
[2020-08-09 18:23] VITALS: BP 143/80; PULSE 80; RESP 20; O2SAT 98
[2020-08-09] MEDS: lactated ringers 1,000 ML 999 ML IV (18:27)
[2020-08-09 18:33] LABS: Basophils # 0.1 10^3/uL (0.0-0.1); Basophils % 1.1 %; Eosinophils # 0.1 10^3/uL (0.0-0.8); Eosinophils % 1.3 %; Hemoglobin 10.6 g/dL (11.7-16.6); Lymphocytes # 1.8 10^3/uL (0.8-4.8); Lymphocytes % 28.5 %; Mean Corpuscular HGB Conc 32.1 g/dL (30.0-36.0); Mean Corpuscular Hemoglobin 26.2 pg (28.0-34.0); Mean Corpuscular Volume 81.5 fL (80-94); Mean Platelet Volume 10.9 fL (7.4-10.4); Monocytes # 0.4 10^3/uL (0.2-0.9); Monocytes % 6.8 %; Neutrophils # 3.93 10^3/uL (1.8-7.7); Nucleated Red Blood Cells # 0.1 /100WBC; Nucleated Red Blood Cells % 1.4 %; Platelet Count 211 10^3/cmm (130-400); Red Blood Count 4.05 10^6/uL (4.1-5.3); Red Cell Distribution Width 15.3 % (12.1-15.1); White Blood Count 6.3 10^3/uL (4.0-10.0)
[2020-08-09 19:02] LABS: Anion Gap 16.1 (5-19); Blood Urea Nitrogen 9 mg/dL (8-23); Calcium 6.6 mg/dL (8.5-10.5); Carbon Dioxide 26 mmol/L (22-29); Chloride 99 mmol/L (98-107); Glomerular Filtration Rate 37.6 mL/min (90-130); Glucose 125 mg/dL (65-115); Osmolality Calculated 286 mOsm/kg (285-295); Potassium 3.1 mmol/L (3.5-5.1); Sodium 138 mmol/L (136-145)
[2020-08-09 19:29] LABS: Alcohol Level 281 mg/dL (0-10)
[2020-08-09 20:14] VITALS: BP 166/80; PULSE 96; RESP 20; O2SAT 99
== END 2020-08-09 20:14 | disposition home or self-care (01) ==
PROVIDERS: Emergency Provider Student in an Organized Health Care Education/Training Program; PCP Physician Assistant
DX: F10.20 Alcohol dependence, uncomplicated (principal); Z79.899 Other long term (current) drug therapy
CPT/HCPCS: 80048; 80307; 85025; 96360; 99284

== ENCOUNTER 2020-08-10 01:04 | Emergency (ER) | payer MEDICARE, MEDICAID, SELFPAY ==
[2020-08-10 01:04] VITALS: BP 178/102; PULSE 87; RESP 18; TEMP 36.4; O2SAT 100; BMI 24.9
--- NOTE | 2020-08-10 01:19 | ED_ITS ---
HPI - Alcohol General: Chief Complaint: General Medical Stated Complaint: dt's Time Seen by Provider: 08/10/20 01:09 Source: patient and EMS Mode of arrival: EMS Limitations: no limitations History of Present Illness: HPI narrative: Patient is a 69-year-old male who presents to ED today with a complaint of feeling like he may be withdrawing from alcohol. Patient has been seen in our facility multiple times over the past week. He was here earlier today for similar symptoms. He is scheduled to enter into [facility] detox facility tomorrow. He was supposed to be there today but however missed the deadline of 5 PM. He is scheduled to arrive tomorrow morning. Last drink was yesterday. States he has been consuming about 20 shots a day. He states he is anxious. Having some paresthesias to his face and bilateral hands. Has been here previously for chest pains and had extensive workups that were negative-he does not complain of chest pain currently. No vomiting. MD complaint: alcohol intoxication and alcohol withdrawal Last drink: Days (ago) (yesterday) Chronic alcohol use: Yes Previous visits for alcohol intoxication: Yes Recent trauma: No Associated symptoms: Deny abdominal pain, diaphoresis, nausea, seizure-like activity, syncope or vomiting Review of Systems Const: Denies: fever(s), chills, body aches, fatigue, malaise or diaphoresis Eyes: Denies: change in vision or blurry vision Card: Denies: chest pain, palpitations, irregular heart rhythm, edema, swelling of feet/ankles, lightheadedness, syncope, pre-syncope or orthopnea Resp: Denies: dyspnea GI: Denies: abdominal pain, nausea or vomiting Musc: Denies: neck pain or back pain Skin/Breast: Denies: rash Neuro: Reports: sensory changes (face/hands); Denies: headache(s), weakness in extremities, lack of coordination, difficulty walking, dizziness, vertigo or seizure-like activity [facility] ED PFSH: Medical History Alcohol abuse Arthritis Chronic low back pain Long-term use of high-risk medication Continue to monitor use Tobacco abuse counselled to quit smoking Surgical History History of appendectomy History of spinal surgery 25 years ago l4/5 fusion per pt Family History Father Stroke Other Hypertension Social History Smoking and tobacco status: current some day smoker cigarettes [ Other cigarette details: 1 PK WEEK ] Alcohol intake: former Desire information about substance/drug rehabilitation?: No Physical Exam Const: COMMON NORMALS: no acute distress, patient oriented x3, no limitations and alert ORIENTATION/CONSCIOUSNESS: Yes awake, Yes oriented to person, Yes oriented to place and Yes oriented to time OTHER: etoh on breath but he is alert and oriented and converses appropriately HENMT: COMMON NORMALS: normocephalic and atraumatic HEAD & SCALP: normocephalic and atraumatic Resp: COMMON NORMALS: normal respiratory effort Cardio: COMMON NORMALS: regular rate and regular rhythm RATE: regular rate RHYTHM: regular rhythm Neuro: DECLAN COMA SCALE: document GCS findings Declan coma scale eye opening: Spontaneous Declan coma scale verbal response: Orientated Declan coma scale motor response: Obey commands [place] coma scale total score: 15 COMMON NORMALS: patient oriented x3, CN's II-XII intact bilaterally, moves all extremities, no focal motor deficits and no sensory deficits noted SENSORIUM/ORIENTATION: Yes alert, Yes oriented to person, Yes oriented to place and Yes oriented to time GAIT: Yes Unable to assess gait MOTOR EXAM: 5/5 motor strength present throughout OTHER: NIHSS of 0 mild tremor noted to UE when arms extended Skin: NARRATIVE SKIN EXAM: no diaphoresis Course Vital Signs: Vital signs: Vital Signs Temperature 97.6 F 08/10/20 01:04 Pulse Rate 87 08/10/20 01:04 Respiratory Rate 18 08/10/20 01:04 Blood Pressure 178/102 08/10/20 01:04 Pulse Oximetry 100 08/10/20 01:04 MDM - Alcohol MDM Narrative: Medical decision making narrative: CIWA score would be mild withdrawal. Patient has a ride here and wants to leave. He states he feels better after the Ativan although I suspect he is just saying this to get to leave. He does not want to stay for any further treatment/intervention. Plan is for him to be at [facility] tomorrow. Return to ED precautions given. Discharge Plan Discharge Patient Disposition: Home Clinical Impression: Chronic alcohol abuse Alcohol withdrawal Qualifiers: Complication of substance-induced condition: uncomplicated Qualified Code(s): F10.230 - Alcohol dependence with withdrawal, uncomplicated Condition: Stable Prescriptions: No Action diclofenac sodium [Voltaren Arthritis Pain] 1 % gel 2 g topical QID Qty: 100 RF: 2 methotrexate sodium 2.5 mg tablet 2.5 mg PO .COMPLEX RF: 0 folic acid 1 mg tablet 1 mg PO DAILY RF: 0 lisinopril 10 mg tablet 10 mg PO DAILY RF: 0 prednisone 5 mg tablet See Rx Instructions PO DAILY Qty: 60 RF: 0 pantoprazole [Protonix] 40 mg tablet,delayed release (DR/EC) 40 mg PO DAILY 56 Days Qty: 60 RF: 0 trazodone 50 mg Tablet 50 mg PO BEDTIME RF: 0 hydrocodone-acetaminophen 5-325 mg tablet 1 tab PO Q6H PRN (Reason: pain) Qty: 20 RF: 0 chlordiazepoxide HCl 10 mg capsule 10 mg PO Q6H PRN (Reason: withdrawal symptoms) Qty: 20 RF: 0 tizanidine 4 mg tablet 4 mg PO Q6H PRN (Reason: muscle spasticity) Qty: 20 RF: 0 Discharge Orders: Discharge ED (Routine); Ordered 08/10/20 Ordered By: Judy Markham Referrals: Loni Che PA [Primary Care Provider] - Patient Instructions: Abuse of Alcohol (ED) Coding Level of Care Code ED It 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
[2020-08-10] MEDS: lisinopril 10 mg Tablet PO (01:24)
[2020-08-10] MEDS: LORazepam 2 mg/mL INJ 1 mL 1 MG IVP (01:24)
[2020-08-10 02:00] VITALS: BP 186/140; PULSE 104; RESP 18; O2SAT 98
== END 2020-08-10 02:00 | disposition home or self-care (01) ==
PROVIDERS: Emergency Provider Physician Assistant; PCP Physician Assistant
DX: F10.139 Alcohol abuse with withdrawal, unspecified (principal); F17.210 Nicotine dependence, cigarettes, uncomplicated
CPT/HCPCS: 96374; 99283; J2060

== ENCOUNTER 2020-08-30 15:50 | Emergency (ER) | payer MEDICARE, MEDICAID, SELFPAY ==
[2020-08-30 15:54] VITALS: BP 138/71; PULSE 101; RESP 20; TEMP 37.1; O2SAT 99; BMI 27.4
--- NOTE | 2020-08-30 19:02 | XRR_ITS ---
PROCEDURE INFORMATION: Exam: XR Chest Exam date and time: 08/30/2020 7:11 PM Age: 69 years old Clinical indication: Fever and other: Iqmqga-rhzqfgxp-veavl pain RT side; Patient HX: C/O weakness/fever/chills. RT side rib pain TECHNIQUE: Imaging protocol: XR of the chest. Views: 1 view. Total images: 1 COMPARISON: 1. CR XR chest 1V portable [id number] 08/05/2020 5:[address] angio chest PE protcl [id number] 08/05/2020 6:04:51 AM FINDINGS: Lungs: No visible active interstitial or alveolar airspace disease. COPD/chronic bronchitis. Pleural spaces: Unremarkable. No pleural effusion. No pneumothorax. Heart/Mediastinum: Cardiac structures and configuration with mild arteriosclerosis. Bones/joints: Unremarkable. XR/XR chest 1V portable [id number] IMPRESSION: Nonacute.
--- NOTE | 2020-08-30 19:47 | ED_ITS ---
HPI - Weakness General: Chief complaint: Weakness Stated complaint: ETOH WITHDRAWL Time Seen by Provider: 08/30/20 19:38 Source: patient Mode of arrival: ambulatory Limitations: no limitations History of Present Illness: HPI Narrative: 69-year-old male has a history of alcoholism is well-known the ER. Patient just released from [facility] this morning. He states that since been discharged he has had some slight weakness and felt like he may still be having alcohol withdrawals. He was admitted there for DTs. In the room he has no shakes and his vitals are normal. He denies any vomiting or diarrhea. Patient is ambulatory. Associated symptoms: Denies chest pain, chills, dysuria, easy bruising, fever(s), headache(s), nausea or vomiting Review of Systems Const: Denies: fever(s), chills, body aches or change in appetite Eyes: Denies: blurry vision or eye discomfort ENMT: Denies: throat pain or dental pain Card: Denies: chest pain Resp: Denies: dyspnea GI: Denies: abdominal pain, nausea, vomiting or diarrhea : Denies: dysuria Musc: Denies: neck pain or back pain Skin/Breast: Denies: rash Neuro: Denies: headache(s) Psych: Denies: depression J Carlos/Lymph: Denies: easy bruising All/Imm: Denies: urticaria PFSH ED PFSH: Medical History Alcohol abuse Arthritis Chronic low back pain Long-term use of high-risk medication Continue to monitor use Tobacco abuse counselled to quit smoking Surgical History History of appendectomy History of spinal surgery 25 years ago l4/5 fusion per pt Family History Father Stroke Other Hypertension Social History Smoking and tobacco status: current some day smoker cigarettes [ Other cigarette details: 1 PK WEEK ] Alcohol intake: former Desire information about substance/drug rehabilitation?: No Physical Exam Const: COMMON NORMALS: no acute distress, patient oriented x3 and healthy appearing HENMT: COMMON NORMALS: normocephalic and atraumatic HEAD & SCALP: normocephalic and atraumatic Eye: COMMON NORMALS: Equal, round and reactive pupils present and EOMs intact bilaterally PUPIL: Yes Equal, round and reactive pupils present Neck/C-Spine: COMMON NORMALS: full ROM and supple Chest: COMMONS NORMALS: normal inspection of the chest and normal palpation of entire chest wall Resp: COMMON NORMALS: normal respiratory effort, No retractions, No use of accessory muscles and clear to auscultation bilaterally AUSCULTATION: clear to auscultation bilaterally Cardio: COMMON NORMALS: regular rate, regular rhythm and No murmurs present (Cardio) RATE: regular rate RHYTHM: regular rhythm GI: COMMON NORMALS: Normal to inspection, nondistended, normoactive bowel sounds present, Soft to palpation, non-tender and no masses PALPATION: Yes Soft to palpation Extremity: COMMON NORMALS: normal to inspection and full ROM Neuro: COMMON NORMALS: patient oriented x3, moves all extremities and no focal motor deficits Psych: COMMON NORMALS: mental status grossly normal, Normal thought process present and cooperative THOUGHT PROCESS: Normal thought process present Skin: COMMON NORMALS: no rashes or lesions noted and no wounds GENERAL SKIN EXAM: no rashes or lesions noted Course Vital Signs: Vital signs: Vital Signs Temperature 98.8 F 08/30/20 15:54 Pulse Rate 90 08/30/20 19:56 Respiratory Rate 16 08/30/20 19:56 Blood Pressure 135/111 08/30/20 19:56 Pulse Oximetry 97 08/30/20 19:56 MDM - Weakness MDM Narrative: Medical decision making narrative: Patient presents with generalized weakness and was worried about withdrawal. He has no signs of a lcohol withdrawal here and is well-appearing here. He just got out of the hospital this morning. Patient is stable for discharge. He has no signs of sepsis or infection. He is return if worsening. Discharge Plan Discharge Patient Disposition: Home Clinical Impression: Weakness Condition: Stable Prescriptions: No Action diclofenac sodium [Voltaren Arthritis Pain] 1 % gel 2 g topical QID Qty: 100 RF: 2 methotrexate sodium 2.5 mg tablet 2.5 mg PO .COMPLEX RF: 0 folic acid 1 mg tablet 1 mg PO DAILY RF: 0 lisinopril 10 mg tablet 10 mg PO DAILY RF: 0 prednisone 5 mg tablet See Rx Instructions PO DAILY Qty: 60 RF: 0 pantoprazole [Protonix] 40 mg tablet,delayed release (DR/EC) 40 mg PO DAILY 56 Days Qty: 60 RF: 0 trazodone 50 mg Tablet 50 mg PO BEDTIME RF: 0 hydrocodone-acetaminophen 5-325 mg tablet 1 tab PO Q6H PRN (Reason: pain) Qty: 20 RF: 0 chlordiazepoxide HCl 10 mg capsule 10 mg PO Q6H PRN (Reason: withdrawal symptoms) Qty: 20 RF: 0 tizanidine 4 mg tablet 4 mg PO Q6H PRN (Reason: muscle spasticity) Qty: 20 RF: 0 Discharge Orders: Discharge ED (Routine); Ordered 08/30/20 Ordered By: Beatrice Gu Referrals: Loni Che PA [Primary Care Provider] - 1-3 days Discharge Diet: Advance as tolerated Discharge Activity: Resume usual activity Patient Instructions: Weakness (ED) Coding Level of Care Code ED Certified Ophthalmic Technician for Ed Fwd Exam Comprehensive
[2020-08-30 19:56] VITALS: BP 135/111; PULSE 90; RESP 16; O2SAT 97
[2020-08-30] MEDS: HYDROcodone-acetaminophen 5-325 mg Tablet 1 TAB PO (20:21)
== END 2020-08-30 20:25 | disposition home or self-care (01) ==
PROVIDERS: Emergency Provider Emergency Medicine; PCP Physician Assistant
DX: R53.1 Weakness (principal); F17.210 Nicotine dependence, cigarettes, uncomplicated
CPT/HCPCS: 71045; 99283

== ENCOUNTER 2021-03-25 12:12 | Emergency (ER) | payer MEDICARE, MEDICAID, SELFPAY ==
[2021-03-25 12:16] VITALS: PULSE 111; RESP 24; TEMP 36.4; O2SAT 100; BMI 20.7
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
[2021-03-25 12:38] VITALS: BP 158/92; PULSE 69; RESP 17; O2SAT 98
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
[2021-03-25 13:15] LABS: Basophils # 0.1 10^3/uL (0.0-0.1); Basophils % 1.2 %; Hemoglobin 13.9 g/dL (11.7-16.6); Lymphocytes # 2.3 10^3/uL (0.8-4.8); Lymphocytes % 27.7 %; Mean Corpuscular HGB Conc 33.9 g/dL (30.0-36.0); Mean Corpuscular Hemoglobin 30.4 pg (28.0-34.0); Mean Corpuscular Volume 89.7 fl (80-94); Mean Platelet Volume 11.9 fL (7.4-10.4); Monocytes # 0.3 10^3/uL (0.2-0.9); Monocytes % 3.9 %; Neutrophils # 5.51 10^3/uL (1.8-7.7); Neutrophils % 66.8 %; Nucleated Red Blood Cells % 0.2 %; Platelet Count 101 10^3/cmm (130-400); Red Blood Count 4.57 10^6/uL (4.1-5.3); Red Cell Distribution Width 18.4 % (12.1-15.1); White Blood Count 8.2 10^3/uL (4.0-10.0)
[2021-03-25 13:33] LABS: Alanine Aminotransferase 33 U/L (0-41); Albumin Level 4.3 g/dL (3.5-5.2); Alkaline Phosphatase 189 IU/L (40-130); Anion Gap 26.8 (5-19); Aspartate Amino Transferase 93 U/L (0-40); Blood Urea Nitrogen 25 mg/dL (8-23); Calcium 8.6 mg/dL (8.5-10.5); Carbon Dioxide 17 mmol/L (22-29); Chloride 102 mmol/L (98-107); Globulin 3.3 g/dL (1.3-4.6); Glomerular Filtration Rate 31.4 mL/min (90-130); Glucose 116 mg/dL (65-115); Osmolality Calculated 299 mOsm/kg (285-295); Potassium 3.8 mmol/L (3.5-5.1); Sodium 142 mmol/L (136-145); Total Bilirubin 1.2 mg/dL (0.15-1.2); Total Protein 7.6 g/dL (6.6-8.7)
[2021-03-25 13:34] LABS: Troponin(5th) Baseline 33 ng/L (0-15)
[2021-03-25] MEDS: midazolam 1 mg/mL INJ 2 mL 2 MG IM (13:43)
[2021-03-25 14:01] VITALS: BP 163/87; PULSE 64; RESP 18; O2SAT 99
[2021-03-25 14:03] LABS: Glucose Point of Care 109 mg/dL (70-110)
--- NOTE | 2021-03-25 14:07 | PC.PHAR ---
pt unable to verify due to intoxication.
--- NOTE | 2021-03-25 14:10 | PC.NURSE ---
Pt continuously gets out of bed and has to be redirected to go back to room and get in bed. medical secretary teacher notified of pt being a fall risk due to ETOH and medication given.
--- NOTE | 2021-03-25 14:23 | PC.NURSE ---
Anna Anne with pt at this time.
[2021-03-25 15:39] LABS: Troponin 5 2HR 35.65 ng/L (0-15); Troponin 5 2HR Delta 2.65 ABS# (0-10)
[2021-03-25 16:10] VITALS: BP 128/74; PULSE 71; RESP 17; O2SAT 99
--- NOTE | 2021-03-25 17:11 | ECG_ITS ---
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 Measurements Intervals [place] Rate: 101 P: 34 UT: 167 QRS: 60 QRSD: 98 T: 67 QT: 358 QTc: 465 Interpretive Statements SINUS TACHYCARDIA NONSPECIFIC T-WAVE ABNORMALITY Compared to ECG 08/05/2020 05:24:29 T-wave abnormality now present Electronically Signed On 03-26-2021 17:11:26 MARKETING SEGMENT MANAGER by Jatinder Ferreira M.D. [email or web address] [email or web address] comprehensive health [email or web address]/store/[id number]
== END 2021-03-25 16:08 | disposition home or self-care (01) ==
PROVIDERS: Emergency Provider Emergency Medicine; PCP Physician Assistant
DX: S32.029A Unspecified fracture of second lumbar vertebra, initial encounter for closed fracture (principal); S32.039A Unspecified fracture of third lumbar vertebra, initial encounter for closed fracture; F10.129 Alcohol abuse with intoxication, unspecified; E86.0 Dehydration; F17.210 Nicotine dependence, cigarettes, uncomplicated; V89.2XXA Person injured in unspecified motor-vehicle accident, traffic, initial encounter
CPT/HCPCS: 36416; 70450; 71250; 72125; 74176; 80053; 82962; 84484; 85025; 93005; 96372; 99283; J2250

== ENCOUNTER 2021-03-26 06:33 | Emergency (ER) | payer MEDICARE, MEDICAID, SELFPAY ==
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
[2021-03-26 06:40] VITALS: BP 169/78; BMI 21.6
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
--- NOTE | 2021-03-26 06:49 | ECG_ITS ---
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 Measurements Intervals [place] Rate: 126 P: 72 MN: 164 QRS: 70 QRSD: 96 T: 5 QT: 312 QTc: 453 Interpretive Statements SINUS TACHYCARDIA Compared to ECG 03/25/2021 12:29:18 T-wave abnormality no longer present Electronically Signed On 03-26-2021 16:58:45 TELEPHONE PLANT POWER OPERATOR by Jatinder Ferreira M.D. [email or web address] general [email or web address] [id number]
[2021-03-26 06:55] VITALS: TEMP 35.4
[2021-03-26 07:12] LABS: Hematocrit 37.6 % (42.0-52.0); Hemoglobin 12.1 g/dL (11.7-16.6); Mean Corpuscular HGB Conc 32.2 g/dL (30.0-36.0); Mean Corpuscular Hemoglobin 30.6 pg (28.0-34.0); Mean Corpuscular Volume 94.9 fl (80-94); Mean Platelet Volume 12.2 fL (7.4-10.4); Platelet Count 81 10^3/cmm (130-400); Red Blood Count 3.96 10^6/uL (4.1-5.3); Red Cell Distribution Width 18.9 % (12.1-15.1); White Blood Count 12.2 10^3/uL (4.0-10.0)
[2021-03-26 07:21] LABS: ABG PCO2 20.6 mmHg (35-45); ABG PH Result 7.26 (7.35-7.45); Arterial Blood Gas Hematocrit 35.1 % (42-52); Base Excess ABG -15.9 mmol/L (-2.0-2.0); Blood Gas Allen Test Pos; Blood Gas Operator Identificat ED; Blood Gas Sample Site Radial, right; Blood Gas Sample Type Arterial; HCO3 ABG 9.3 mmol/L (22-26); Oxygen Device ROOM AIR
[2021-03-26] MEDS: ondansetron 2 mg/ML SDV 2 mL 4 MG IVP (07:22)
[2021-03-26] MEDS: LORazepam 2 mg/mL INJ 1 mL 1 MG IVP (07:22)
[2021-03-26] MEDS: sodium chloride 0.9% 1,000 ML 999 ML IV ×2 (07:28→09:55)
[2021-03-26] MEDS: folic acid 1 MG, multivitamin inj 10 ML, thiamine 100 MG in sodium chloride 0.9% 1,000 ML 252.8 MG IV (07:29)
[2021-03-26 07:35] LABS: Alanine Aminotransferase 41 U/L (0-41); Albumin Level 4.1 g/dL (3.5-5.2); Alcohol Level 168 mg/dL (0-10); Alkaline Phosphatase 184 IU/L (40-130); Aspartate Amino Transferase 117 U/L (0-40); Blood Urea Nitrogen 33 mg/dL (8-23); Calcium 8.4 mg/dL (8.5-10.5); Chloride 96 mmol/L (98-107); Globulin 3.2 g/dL (1.3-4.6); Glomerular Filtration Rate 23.5 mL/min (90-130); Glucose 101 mg/dL (65-115); Osmolality Calculated 299 mOsm/kg (285-295); Sodium 141 mmol/L (136-145); Total Bilirubin 2.1 mg/dL (0.15-1.2); Total Protein 7.3 g/dL (6.6-8.7); Troponin(5th) Baseline 46 ng/L (0-15)
[2021-03-26 07:40] LABS: Carbon Dioxide 9 mmol/L (22-29)
[2021-03-26 07:49] LABS: Anisocytosis 1+; Eosinophils 0 %; Lymphocytes 4 %; Poikilocytosis Trace; Segmented Neutrophils 92 %; Total Cells Counted 100 (0-100)
[2021-03-26 07:51] VITALS: BP 185/56; PULSE 129; RESP 25; TEMP 36.4; O2SAT 97
[2021-03-26 07:51] LABS: Absolute Neutrophil 11.3 10^3/cmm (1.4-6.5); Platelet Estimate Decreased (Normal)
[2021-03-26 08:13] LABS: Lactate (Lactic Acid level) 10.1 mmol/L (0.5-2.2)
[2021-03-26 08:32] LABS: INR 1.28 (0.8-1.2)
[2021-03-26] MEDS: LORazepam 2 mg/mL INJ 1 mL IVP (08:32)
[2021-03-26 08:33] LABS: Partial Thromboplastin Time 32.3 SECONDS (23.9-36.7)
--- NOTE | 2021-03-26 08:49 | ECG_ITS ---
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 Measurements Intervals [place] Rate: 125 P: 74 WV: 159 QRS: 65 QRSD: 93 T: 14 QT: 310 QTc: 447 Interpretive Statements SINUS TACHYCARDIA ABNORMAL RHYTHM ECG Compared to ECG 03/26/2021 07:32:24 No significant changes Electronically Signed On 03-26-2021 17:02:43 WIRE WRAPPING MACHINE OPERATOR by Jatinder Ferreira M.D. [id number]
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
[2021-03-26 09:36] LABS: Ketone (Acetest) Serum Negative (Negative)
[2021-03-26 09:44] LABS: Lipase 161 U/L (13-60)
--- NOTE | 2021-03-26 09:44 | PC.NURSE ---
Report called to Susan BETTENCOURT, spoke with Emilia Reyes RN to give report. Transfer paperwork signed by pt and given to Demetria
[2021-03-26] MEDS: sodium bicarbonate 8.4% 1 mEq/mL 50mL Syr 100 MEQ IVP (09:53)
[2021-03-26] MEDS: sodium chloride 0.9% 1,000 ML 125 ML IV (09:55)
== END 2021-03-26 10:38 ==
PROVIDERS: Emergency Medicine; Emergency Provider Family Medicine; PCP Physician Assistant
DX: S06.5X9A Traumatic subdural hemorrhage with loss of consciousness of unspecified duration, initial encounter (principal); E87.2 Acidosis; N17.9 Acute kidney failure, unspecified; F17.210 Nicotine dependence, cigarettes, uncomplicated; X58.XXXA Exposure to other specified factors, initial encounter
CPT/HCPCS: 36415; 36600; 70450; 71045; 72125; 80053; 80307; 82009; 82803; 83605; 83690; 84484; 85007; 85027; 85610; 85730; 93005; 96361; 96374; 96375; 96376; 99285; 99291; J2060; J2405; J3411; J3490; J7030

== ENCOUNTER 2021-04-11 04:32 | Emergency (ER) | payer MEDICARE, MEDICAID, SELFPAY ==
[2021-04-11 04:35] VITALS: BP 201/110; PULSE 87; RESP 17; TEMP 36.7; O2SAT 100; BMI 24.1
--- NOTE | 2021-04-11 04:37 | ECG_ITS ---
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 Measurements Intervals [place] Rate: 84 P: 60 MN: 181 QRS: 63 QRSD: 88 T: 68 QT: 361 QTc: 427 Interpretive Statements SINUS RHYTHM Compared to ECG 03/26/2021 08:59:25 Sinus tachycardia no longer present Electronically Signed On 04-12-2021 8:52:40 DISTRICT SALES MANAGER by Jatinder Ferreira M.D. [email or web address] [email or web address] [email or web address] cross [email or web address] [place] AB/[id number]
--- NOTE | 2021-04-11 04:38 | W.ED.BACK ---
HPI - Back Pain/Injury General: Chief Complaint: Back Pain/Injury Stated Complaint: BACK PAIN/CHILLS/N/V Time Seen by Provider: 04/11/21 04:33 Source: patient and EMS Mode of arrival: EMS Limitations: no limitations History of Present Illness: HPI Narrative: 70-year-old male who is very well-known to the ER seen here 11/2 weeks ago after a fall and had a subdural hematoma he was transferred to [place] where he was discharged yesterday states that since being home has been having low back pain is also having high blood pressure he states he has chronic back pain denies any new falls abdominal pain states pain sharp in nature is a 4 out of 10 denies any chest pain. Associated symptoms: Deny abdominal pain, chills, dysuria, fever(s), nausea or vomiting Review of Systems Const: Denies: fever(s), chills, body aches or change in appetite Eyes: Denies: blurry vision or eye discomfort ENMT: Denies: throat pain or dental pain Card: Denies: chest pain Resp: Denies: dyspnea GI: Denies: abdominal pain, nausea, vomiting or diarrhea : Denies: dysuria Musc: Reports: back pain Skin/Breast: Denies: rash Neuro: Denies: headache(s) Psych: Denies: depression J Carlos/Lymph: Denies: easy bruising All/Imm: Denies: urticaria PFSH ED PFSH: Medical History Alcohol abuse Arthritis Chronic low back pain Long-term use of high-risk medication Continue to monitor use Tobacco abuse counselled to quit smoking Surgical History History of appendectomy History of spinal surgery 25 years ago l4/5 fusion per pt Family History Father Stroke Other Hypertension Social History Smoking and tobacco status: current some day smoker cigarettes [ Other cigarette details: 1 PK WEEK ] Alcohol intake: former Desire information about substance/drug rehabilitation?: No Physical Exam Const: COMMON NORMALS: no acute distress, patient oriented x3 and healthy appearing HENMT: COMMON NORMALS: normocephalic and atraumatic HEAD & SCALP: normocephalic and atraumatic Eye: COMMON NORMALS: Equal, round and reactive pupils present and EOMs intact bilaterally PUPIL: Yes Equal, round and reactive pupils present Neck/C-Spine: COMMON NORMALS: full ROM and supple Chest: COMMONS NORMALS: normal inspection of the chest and normal palpation of entire chest wall Resp: COMMON NORMALS: normal respiratory effort, No retractions, No use of accessory muscles and clear to auscultation bilaterally AUSCULTATION: clear to auscultation bilaterally Cardio: COMMON NORMALS: regular rate, regular rhythm and No murmurs present (Cardio) RATE: regular rate RHYTHM: regular rhythm GI: COMMON NORMALS: Normal to inspection, nondistended, normoactive bowel sounds present, Soft to palpation, non-tender and no masses PALPATION: Yes Soft to palpation Extremity: COMMON NORMALS: normal to inspection and full ROM Neuro: COMMON NORMALS: patient oriented x3, moves all extremities and no focal motor deficits Psych: COMMON NORMALS: mental status grossly normal, Normal thought process present and cooperative THOUGHT PROCESS: Normal thought process present Skin: COMMON NORMALS: no rashes or lesions noted and no wounds GENERAL SKIN EXAM: no rashes or lesions noted Course Vital Signs: Vital signs: Vital Signs Temperature 98.1 F 04/11/21 04:35 Pulse Rate 87 04/11/21 04:35 Respiratory Rate 19 H 04/11/21 05:57 Blood Pressure 201/110 04/11/21 04:35 Pulse Oximetry 100 04/11/21 04:35 MDM - Back Pain/Injury MDM Narrative: Medical decision making narrative: Patient presents here with low back pain is chronic in nature he has no signs of a abdominal aortic aneurysm his blood pressure is improved her blood work is all normal abdominal exam is benign he is stable for discharge he is to follow-up his PCP and return if worsening. Lab Data: Labs: Lab Results 04/11/21 04/11/21 04/11/21 02:22 05:00 05:00 WBC 9.7 10^3/uL 10^3/ uL (4.0-10.0) RBC 3.61 10^6/uL L 10 ^6/uL (4.1-5.3) Hgb 11.0 g/dL L g/dL (11.7-16.6) Hct 33.9 % L % (42.0-52.0) MCV 93.9 fl fl (80-94) MCH 30.5 pg pg (28.0-34.0) MCHC 32.4 g/dL g/dL (30.0-36.0) RDW 18.4 % H % (12.1-15.1) Plt Count 764 10^3/cmm H 10 ^3/cmm (130-400) MPV 10.1 fL fL (7.4-10.4) Neut % (Auto) 68.5 % % Lymph % (Auto) 22.0 % % [place] % (Auto) 6.0 % % Eos % (Auto) 1.1 % % Baso % (Auto) 2.0 % % Neut # (Auto) 6.61 10^3/uL 10^3 /uL (1.8-7.7) Lymph # (Auto) 2.1 10^3/uL 10^3/ uL (0.8-4.8) Vent[place] # (Auto) 0.6 10^3/uL 10^3/ uL (0.2-0.9) Eos # (Auto) 0.1 10^3/uL 10^3/ uL (0.0-0.8) Baso # (Auto) 0.2 10^3/uL H 10^ 3/uL (0.0-0.1) Nucleated RBC % (a uto) 0 % % Nucleated RBCs # 0.0 /100WBC /100W BC Sodium 134 mmol/L L mmol /L (136-145) Potassium 4.5 mmol/L mmol/L (3.5-5.1) Chloride 101 mmol/L mmol/L (98-107) Carbon Dioxide 19 mmol/L L mmol/ L (22-29) Anion Gap 18.5 (5-19) BUN 16 mg/dL mg/dL (8-23) Creatinine 1.7 mg/dL H mg/dL (0.7-1.2) GFR Calculation 40.0 mL/min L mL/ min (90-130) Glucose 108 mg/dL mg/dL (65-115) Calculated Osmolal ity 280 mOsm/kg L mOs m/kg (285-295) Calcium 8.9 mg/dL mg/dL (8.5-10.5) Total Bilirubin 0.4 mg/dL mg/dL (0.15-1.2) AST 28 U/L U/L (0-40) ALT 25 U/L U/L (0-41) Alkaline Phosphata se 446 IU/L H IU/L (40-130) Total Protein 7.4 g/dL g/dL (6.6-8.7) Albumin 3.6 g/dL g/dL (3.5-5.2) Globulin 3.8 g/dL g/dL (1.3-4.6) Lipase 66 U/L H U/L (13-60) Urine Color Yellow (Yellow) Urine Appearance Clear (CLEAR) Urine pH 5 (5-7) Ur Specific Gravit y 1.010 (1.005-1.030) Urine Protein Neg (Negative) Urine Glucose (UA) Norm (Normal) Urine Ketones Negative (Negative) Urine Blood Neg (Negative) Urine Nitrate Negative (Negative) Urine Bilirubin Neg (Negative) Urine Urobilinogen Neg mg/dL mg/dL (Negative) Ur Leukocyte Brittny ase Negative (Negative) EKG Data^: EKG 1: Attestation: I personally reviewed and interpreted this EKG as follows: EKG interpretation date: 04/11/21 EKG interpretation time: 04:44 Interpretation: nsr hr [address] or t wave abnormalities qrs 88 qtc 401 Discharge Plan Discharge Patient Disposition: Home Clinical Impression: Chronic low back pain Qualifiers: Back pain laterality: bilateral Sciatica presence: without sciatica Qualified Code(s): M54.50 - Low back pain, unspecified Hypertension Qualifiers: Hypertension type: unspecified Qualified Code(s): I10 - Essential (primary) hypertension Condition: Stable Prescriptions: No Action diclofenac sodium [Voltaren Arthritis Pain] 1 % gel 2 g topical QID Qty: 100 RF: 2 methotrexate sodium 2.5 mg tablet 2.5 mg PO .COMPLEX RF: 0 folic acid 1 mg tablet 1 mg PO DAILY RF: 0 lisinopril 10 mg tablet 10 mg PO DAILY RF: 0 quetiapine 50 mg tablet 50 mg PO BEDTIME RF: 0 trazodone 50 mg Tablet 50 mg PO BEDTIME RF: 0 hydrocodone-acetaminophen 5-325 mg tablet 1 tab PO Q6H PRN (Reason: pain) Qty: 20 RF: 0 chlordiazepoxide HCl 10 mg capsule 10 mg PO Q6H PRN (Reason: withdrawal symptoms) Qty: 20 RF: 0 tizanidine 4 mg tablet 4 mg PO Q6H PRN (Reason: muscle spasticity) Qty: 20 RF: 0 Discharge Orders: Discharge ED (Routine); Ordered 04/11/21 Ordered By: Beatrice Gu Referrals: Loni Che PA [Primary Care Provider] - 1-3 days Discharge Diet: Advance as tolerated Discharge Activity: Resume usual activity Patient Instructions: Back Pain (ED) Coding Level of Care Code ED Aircraft Engine Mechanic for Chg Fwd Exam Comprehensive
[2021-04-11 05:10] LABS: Basophils # 0.2 10^3/uL (0.0-0.1); Eosinophils # 0.1 10^3/uL (0.0-0.8); Eosinophils % 1.1 %; Hematocrit 33.9 % (42.0-52.0); Lymphocytes # 2.1 10^3/uL (0.8-4.8); Mean Corpuscular HGB Conc 32.4 g/dL (30.0-36.0); Mean Corpuscular Hemoglobin 30.5 pg (28.0-34.0); Mean Corpuscular Volume 93.9 fl (80-94); Mean Platelet Volume 10.1 fL (7.4-10.4); Monocytes # 0.6 10^3/uL (0.2-0.9); Neutrophils # 6.61 10^3/uL (1.8-7.7); Neutrophils % 68.5 %; Nucleated Red Blood Cells % 0 %; Platelet Count 764 10^3/cmm (130-400); Red Blood Count 3.61 10^6/uL (4.1-5.3); Red Cell Distribution Width 18.4 % (12.1-15.1); White Blood Count 9.7 10^3/uL (4.0-10.0)
[2021-04-11 05:11] VITALS: RESP 21
[2021-04-11] MEDS: labetalol 5 mg/mL SDV 20mL 10 MG IVP (05:30)
[2021-04-11 05:37] LABS: Alanine Aminotransferase 25 U/L (0-41); Albumin Level 3.6 g/dL (3.5-5.2); Alkaline Phosphatase 446 IU/L (40-130); Blood Urea Nitrogen 16 mg/dL (8-23); Calcium 8.9 mg/dL (8.5-10.5); Carbon Dioxide 19 mmol/L (22-29); Chloride 101 mmol/L (98-107); Globulin 3.8 g/dL (1.3-4.6); Glucose 108 mg/dL (65-115); Lipase 66 U/L (13-60); Osmolality Calculated 280 mOsm/kg (285-295); Sodium 134 mmol/L (136-145); Total Bilirubin 0.4 mg/dL (0.15-1.2); Total Protein 7.4 g/dL (6.6-8.7)
[2021-04-11 05:39] LABS: Add Urine Microscopic? NO; Charge for UA Resulting for Rev
[2021-04-11 05:41] LABS: Anion Gap 18.5 (5-19); Aspartate Amino Transferase 28 U/L (0-40); Potassium 4.5 mmol/L (3.5-5.1)
[2021-04-11 05:57] VITALS: RESP 19
[2021-04-11 05:58] LABS: Bilirubin Urine Neg (Negative); Blood Urine Neg (Negative); Glucose Urine UA Norm (Normal); Ketones Urine Negative (Negative); Leukocyte Esterase Urine Negative (Negative); Nitrate Urine Negative (Negative); Protein Urine Neg (Negative); Urine Appearance Clear (CLEAR); Urine Color Yellow (Yellow); Urobilinogen Urine Neg (Negative); pH Urine 5 (5-7)
== END 2021-04-11 05:59 | disposition home or self-care (01) ==
PROVIDERS: Emergency Provider Emergency Medicine; PCP Physician Assistant
DX: G89.29 Other chronic pain (principal); M54.50 Low back pain, unspecified; I10 Essential (primary) hypertension; F17.210 Nicotine dependence, cigarettes, uncomplicated
CPT/HCPCS: 80053; 81003; 83690; 85025; 93005; 96374; 99284; J3490

== ENCOUNTER 2021-04-15 05:58 | Observation (INO) | payer MEDICARE, MEDICAID, SELFPAY ==
[2021-04-15] VITALS (9 sets, daily range): BP systolic 125–179; BP diastolic 72–89; PULSE 81–103; RESP 17–20; TEMP 36.4–37.6; O2SAT 95–100; BMI 27.4
--- NOTE | 2021-04-15 07:12 | CTR_ITS ---
PROCEDURE INFORMATION: Exam: CT Head Without Contrast Exam date and time: 04/15/2021 7:12 AM Age: 70 years old Clinical indication: Injury or trauma; Fall; Blunt trauma (contusions or hematomas); Additional info: Confused TECHNIQUE: Imaging protocol: Computed tomography of the head without contrast. Total images: 207 Radiation optimization: All CT scans at this facility use at least one of these dose optimization techniques: automated exposure control; mA and/or kV adjustment per patient size (includes targeted exams where dose is matched to clinical indication); or iterative reconstruction. COMPARISON: CT head wo con* [id number] 03/25/2021 1:19 PM RADIATION DOSE METRICS: Total DLP (mGy-cm): 871.75 FINDINGS: Brain: Global brain atrophy and chronic white matter ischemic changes are present. Senescent calcifications in the basal ganglia. Low-density extra-axial fluid slightly higher than CSF felt to represent chronic subdural hemorrhages but appear unchanged from the prior exam. Cerebral ventricles: Ventricles are appropriate in size for degree of atrophy. Paranasal sinuses: Visualized sinuses are unremarkable. No fluid levels. Mastoid air cells: Visualized mastoid air cells are well aerated. Bones/joints: Temporomandibular joint degeneration. Soft tissues: Unremarkable. CT/CT head wo con* [id number] IMPRESSION: 1. No acute intracranial pathology detected. 2. Low-density extra-axial fluid slightly higher than CSF felt to represent chronic subdural hemorrhages but appear unchanged from the prior exam.
--- NOTE | 2021-04-15 07:15 | ED_ITS ---
HPI - General Adult General: Chief complaint: General Medical Stated complaint: HIGH BLOOD PRESSURE Time Seen by Provider: 04/15/21 06:22 History of Present Illness: HPI narrative: Patient is a 70-year-old male with history of high blood pressure on lisinopril 10 mg daily presenting to the emergency room after he noticed that his blood pressure was high. On arrival, he had a blood pressure 125/78. Patient has any chest pain shortness breath, focal weakness, abdominal pain, back pain or any urinary symptoms. He is not sure why he is in the emergency room. Onset: earlier today Duration:home Location:home Severity:moderate Review of Systems Narrative: Constitutional: No fever, no chills. HEENT: No vision changes CV: No chest pain, no palpitations PULM: no cough, no dyspnea. GI: No abdominal pain, no N/V/D. : No dysuria MSKEL: No muscle pain SKIN: No new rashes, no lesions. NEURO: No headache, no focal weakness. HEME: No visible bruises PSYCH: Normal mood PFSH ED PFSH: Medical History Alcohol abuse Arthritis Chronic low back pain Long-term use of high-risk medication Continue to monitor use Tobacco abuse counselled to quit smoking Surgical History History of appendectomy History of spinal surgery 25 years ago l4/5 fusion per pt Family History Father Stroke Other Hypertension Social History Smoking and tobacco status: current some day smoker cigarettes [ Other cigarette details: 1 PK WEEK ] Alcohol intake: former Desire information about substance/drug rehabilitation?: No Physical Exam Narrative: EXAM NARRATIVE: Head: Atraumatic Eyes: PERRL, conjunctiva without injection ENT: Mucous membrane moist NECK: Supple, ROM intact LUNGS: LCTAB, no crackles/rhonchi CV: RRR ABDOMEN: Soft, nontender in all quadrants EXTREMITY: +mild b/l tremulousness in the arms SKIN: No rash or erythema NEURO: AAOX3, GCS 15 - mild confusion and unclear why he is in the ER PSYCH: Normal mood and affect Course Vital Signs: Vital signs: Vital Signs Temperature 97.5 F L 04/15/21 05:59 Pulse Rate 87 04/15/21 06:13 Respiratory Rate 18 04/15/21 06:13 Blood Pressure 125/72 04/15/21 06:13 Pulse Oximetry 100 04/15/21 06:13 MDM - General Adult MDM Narrative: Medical decision making narrative: 70-year-old male history of hypertension presents the emergency room for symptoms of high blood pressure. Patient is otherwise unclear why he is in the emergency room. Patient is neurologically intact. No complaints of chest pain shortness of breath. Repeat blood work showed new DAHLIA on CKD. Patient had a creatinine of 1.7 from 4 days ago now is up to 3.1. Patient continues to be confused. CT brain did not show any signs of any acute findings. Given new creatinine elevation, patient will be admitted to hospital for rehydration. CT brain showed unchanged chronic subdural hematoma similar to 03/26 when patient was transferred to [facility]. Disposition: Admission Lab Data: Labs: Lab Results 04/15/21 04/15/21 06:10 06:10 WBC 10.8 10^3/uL H 10 ^3/uL (4.0-10.0) RBC 3.50 10^6/uL L 10 ^6/uL (4.1-5.3) Hgb 10.6 g/dL L g/dL (11.7-16.6) Hct 31.7 % L % (42.0-52.0) MCV 90.6 fl fl (80-94) MCH 30.3 pg pg (28.0-34.0) MCHC 33.4 g/dL g/dL (30.0-36.0) RDW 18.5 % H % (12.1-15.1) Plt Count 797 10^3/cmm H 10 ^3/cmm (130-400) MPV 10.4 fL fL (7.4-10.4) Neut % (Auto) 69.4 % % Lymph % (Auto) 25.0 % % Bennett % (Auto) 4.3 % % Eos % (Auto) 0.1 % % Baso % (Auto) 1.0 % % Neut # (Auto) 7.49 10^3/uL 10^3 /uL (1.8-7.7) Lymph # (Auto) 2.7 10^3/uL 10^3/ uL (0.8-4.8) Bennett # (Auto) 0.5 10^3/uL 10^3/ uL (0.2-0.9) Eos # (Auto) 0.0 10^3/uL 10^3/ uL (0.0-0.8) Baso # (Auto) 0.1 10^3/uL 10^3/ uL (0.0-0.1) Nucleated RBC % (a uto) 0 % % Nucleated RBCs # 0.0 /100WBC /100W BC Sodium 136 mmol/L mmol/L (136-145) Potassium 4.1 mmol/L mmol/L (3.5-5.1) Chloride 101 mmol/L mmol/L (98-107) Carbon Dioxide 18 mmol/L L mmol/ L (22-29) Anion Gap 21.1 H (5-19) BUN 18 mg/dL mg/dL (8-23) Creatinine 3.1 mg/dL H mg/dL (0.7-1.2) GFR Calculation 20.0 mL/min L mL/ min (90-130) Glucose 129 mg/dL H mg/dL (65-115) Calculated Osmolal ity 286 mOsm/kg mOsm/ kg (285-295) Calcium 8.4 mg/dL L mg/dL (8.5-10.5) Imaging Data^: Other Imaging: Radiologist's impression: [address] [id number] Scan ReportSigned Patient: José Miguel Donnelly #: [id number]: 1950cct#:[id number]/Sex: 70 / MADM Date: 04/15/21Loc: ERRoom/Bed:Attending Dr: Ordering Provider/Ordering MD: Kaity Dubois MD Date of Service: 04/15/21 Procedure(s): CT head wo con* [id number] Accession Number(s): [id number] Report Number: [id number] PROCEDURE INFORMATION: Exam: CT Head Without Contrast Exam date and time: 04/15/2021 7:12 AM Age: 70 years old Clinical indication: Injury or trauma; Fall; Blunt trauma (contusions or hematomas); Additional info: Confused TECHNIQUE: Imaging protocol: Computed tomography of the head without contrast. Total images: 207 Radiation optimization: All CT scans at this facility use at least one of these dose optimization techniques: automated exposure control; mA and/or kV adjustment per patient size (includes targeted exams where dose is matched to clinical indication); or iterative reconstruction. COMPARISON: CT head wo con* [id number] 03/25/2021 1:19 PM RADIATION DOSE METRICS: Total DLP (mGy-cm): 871.75 FINDINGS: Brain: Global brain atrophy and chronic white matter ischemic changes are present. Senescent calcifications in the basal ganglia. Low-density extra-axial fluid slightly higher than CSF felt to represent chronic subdural hemorrhages but appear unchanged from the prior exam. Cerebral ventricles: Ventricles are appropriate in size for degree of atrophy. Paranasal sinuses: Visualized sinuses are unremarkable. No fluid levels. Mastoid air cells: Visualized mastoid air cells are well aerated. Bones/joints: Temporomandibular joint degeneration. Soft tissues: Unremarkable. CT/CT head wo con* [id number] IMPRESSION: 1. No acute intracranial pathology detected. 2. Low-density extra-axial fluid slightly higher than CSF felt to represent chronic subdural hemorrhages but appear unchanged from the prior exam. Dictated By:Chago Roblesigned By:Chago Robles Date/Time:04/15/21 0831DD/ 0712 Discharge Plan Discharge Patient Disposition: Admitted As Inpatient Clinical Impression: Acute kidney injury superimposed on CKD Condition: Stable Coding Level of Care Code ED Wind Turbine Design Engineer for Ed Becerril
[2021-04-15 07:36] LABS: Basophils # 0.1 10^3/uL (0.0-0.1); Eosinophils % 0.1 %; Hematocrit 31.7 % (42.0-52.0); Hemoglobin 10.6 g/dL (11.7-16.6); Lymphocytes # 2.7 10^3/uL (0.8-4.8); Mean Corpuscular HGB Conc 33.4 g/dL (30.0-36.0); Mean Corpuscular Hemoglobin 30.3 pg (28.0-34.0); Mean Corpuscular Volume 90.6 fl (80-94); Mean Platelet Volume 10.4 fL (7.4-10.4); Monocytes # 0.5 10^3/uL (0.2-0.9); Monocytes % 4.3 %; Neutrophils # 7.49 10^3/uL (1.8-7.7); Neutrophils % 69.4 %; Nucleated Red Blood Cells % 0 %; Platelet Count 797 10^3/cmm (130-400); Red Cell Distribution Width 18.5 % (12.1-15.1); White Blood Count 10.8 10^3/uL (4.0-10.0)
[2021-04-15 08:01] LABS: Anion Gap 21.1 (5-19); Blood Urea Nitrogen 18 mg/dL (8-23); Calcium 8.4 mg/dL (8.5-10.5); Carbon Dioxide 18 mmol/L (22-29); Chloride 101 mmol/L (98-107); Glucose 129 mg/dL (65-115); Osmolality Calculated 286 mOsm/kg (285-295); Potassium 4.1 mmol/L (3.5-5.1); Sodium 136 mmol/L (136-145)
[2021-04-15] MEDS: sodium chloride 0.9% 1,000 ML 999 ML IV (09:09)
--- NOTE | 2021-04-15 09:24 | PM.HP ---
Providers/Chief Complaint Primary Care Provider: Loni Che Chief Complaint: HIGH BLOOD PRESSURE History of Present Illness Pleasant 70-year-old gentleman with history of rheumatoid arthritis on methotrexate, HTN, alcohol use disorder, on 03/26 diagnosed with subdural hematoma transferred to [facility] for evaluation, smoking addiction, presents stating initially due to high blood pressure, but blood pressures are good in ER, when told this is surprised, then states has not been feeling unwell with malaise, he cannot tell me for how long, but has been having headache, diffuse body aches, cough, denies sore throat, runny nose, sneezing, no nausea vomiting or diarrhea. He is afebrile, WBC 10.8, heart rate 101. Hemoglobin 10.6, platelets 797. BMP with normal sodium, potassium, chloride, bicarb 18, anion gap 21.1, BUN 18, creatinine 3.1, glucose 129. He states he is continue taking his medications, last dose was yesterday. He states he has been taking ibuprofen for feeling unwell and body aches. Reports last drink was sometime last week. When asked reports drinks about a liter of hard liquor a week. Review of Systems Const: Reports: body aches and malaise; Denies: fever(s) or chills Eyes: Denies: change in vision or eye redness ENMT: Denies: throat pain, oral sores or ear or mastoid pain Card: Denies: chest pain, edema, pre-syncope or dyspnea on exertion Resp: Reports: productive cough; Denies: dyspnea, change in phlegm color or hemoptysis GI: Denies: abdominal pain, nausea, vomiting, diarrhea, constipation, hematochezia or melena : Denies: flank pain, difficulty urinating, urinary frequency or hematuria Musc: Denies: back pain, joint swelling or joint redness Skin/Breast: Denies: rash, sores or new lesions Neuro: Denies: headache(s), numbness in extremities, weakness in extremities, dizziness, confusion or seizure-like activity Endo: Denies: polyuria or polydipsia J Carlos/Lymph: Denies: easy bleeding or purpura All/Imm: Denies: urticaria, throat swelling or tongue swelling Medications/Allergies Home Medications Medication Instructions Recorded Confirmed Last Taken Type folic acid 1 mg tablet 1 mg PO DAILY tab 04/26/19 03/25/21 Unknown History lisinopril 10 mg tablet 10 mg PO DAILY tab 04/26/19 03/25/21 07/08/19 History methotrexate sodium 2.5 mg tablet 2.5 mg PO .COMPLEX 04/26/19 03/25/21 Unknown History diclofenac sodium 1 % topical gel 2 g TOPICAL QID #100 g 06/15/20 03/25/21 Unknown Rx quetiapine 50 mg PO BEDTIME 03/25/21 03/25/21 Unknown History escitalopram oxalate [Lexapro] 10 mg PO DAILY 04/15/21 04/15/21 04/14/21 History Allergies Allergy/AdvReac Type Severity Reaction Status Date / Time No Known Allergies Allergy Verified 04/11/21 04:41 PFSH Acute PFSH: Medical History Alcohol abuse Arthritis Chronic low back pain Hypertension Long-term use of high-risk medication Continue to monitor use Subdural hematoma Tobacco abuse counselled to quit smoking Surgical History History of appendectomy History of spinal surgery 25 years ago l4/5 fusion per pt Family History Father Stroke Other Hypertension Social History Smoking and tobacco status: current some day smoker cigarettes [ Other cigarette details: 1 PK WEEK ] Alcohol intake: former Desire information about substance/drug rehabilitation?: No Vitals/I&O/Wt Last Vital Signs Temp 97.5 F L 04/15/21 05:59 Pulse 101 H 04/15/21 09:19 Resp 18 04/15/21 06:13 BP 125/72 04/15/21 09:19 Pulse Ox 95 04/15/21 09:19 Weight last 48 hrs Weight 74.843 kg Physical Exam Const: COMMON NORMALS: no acute distress GENERAL APPEARANCE: anxious ORIENTATION/CONSCIOUSNESS: Yes confused (Mild confusion, sometimes repeating statements, attributing all meds to HTN) OTHER: Tremulous HENMT: COMMON NORMALS: oropharynx normal Neck/C-Spine: COMMON NORMALS: no JVD Resp: COMMON NORMALS: normal respiratory effort and clear to auscultation bilaterally AUSCULTATION: clear to auscultation bilaterally Cardio: COMMON NORMALS: no JVD, regular rhythm, S1 normal heart sound present, S2 normal heart sound present and No murmurs present (Cardio) RHYTHM: regular rhythm HEART SOUNDS: S1 normal heart sound present and S2 normal heart sound present GI: COMMON NORMALS: Normal to inspection, nondistended, normoactive bowel sounds present, Soft to palpation and non-tender PALPATION: Yes Soft to palpation Extremity: COMMON NORMALS: no joint enlargement and no pedal edema Neuro: COMMON NORMALS: patient oriented x3 and moves all extremities OTHER: Resting tremor Skin: COMMON NORMALS: no rashes or lesions noted GENERAL SKIN EXAM: no rashes or lesions noted Data : 04/15/21 06:10 04/15/21 06:10 A&P Assessment and plan (1) Malaise: Unclear cause of this at this moment. Headache, body aches, cough, but also appears mildly confused, with mild resting tremor of unknown acuity. With DAHLIA We will request COVID-19 swab for PCR. With DAHLIA hold Lexapro due to possible serotonin syndrome. Hold quetiapine. He states he is continue taking his medications. Obtain chest x-ray. UA. Also possible alcohol withdrawal. Initiate thiamine, folic acid, multivitamin supplementation. Ativan by [place] protocol. Status: Acute (2) Acute encephalopathy: Suspected acute metabolic encephalopathy. Possibly toxic encephalopathy secondary to medication in the setting of DAHLIA. As above. CT of the head with stable subdural hematoma since 03/26. Status: Acute (3) Acute kidney injury superimposed on CKD: Possibly secondary to NSAIDs, states has been taking ibuprofen due to feeling unwell. Also appears is taking Voltaren gel. Discussed with him to discontinue any NSAIDs due to risk to kidneys with chronic kidney disease. He verbalized understanding. Also on lisinopril. Obtain UA, urine electrolytes, kidney ultrasound. Hold lisinopril. Gentle IV hydration. Status: Acute (4) Metabolic acidosis: Anion gap metabolic acidosis, bicarb 18, gap 21.1. Recently with lactic acidosis. We will check lactic acid. Check UA for urine ketones. Possibly metabolic acidosis secondary to acute kidney injury on chronic kidney disease as well. Gentle IV hydration. As per DAHLIA above. Status: Acute Additional A&P Information Subdural hematoma noted on 03/26 at which time transfer to [facility] for evaluation, currently unchanged on CT. RA on methotrexate Depression HTN Attestations Medical Necessity Statement*: Place in observation for assessment management of malaise, acute encephalopathy, DAHLIA, metabolic acidosis. Coding Level of Care Code Acute Liability Claims Adjuster for Chg Fwd Diagnoses Malaise R53.81 Acute encephalopathy G93.40 Acute kidney injury superimposed on CKD N17.9; N18.9 Metabolic acidosis E87.2
[2021-04-15 09:51] LABS: Alanine Aminotransferase 19 U/L (0-41); Albumin Level 3.8 g/dL (3.5-5.2); Alkaline Phosphatase 316 IU/L (40-130); Aspartate Amino Transferase 30 U/L (0-40); Globulin 3.7 g/dL (1.3-4.6); Total Bilirubin 0.3 mg/dL (0.15-1.2); Total Protein 7.5 g/dL (6.6-8.7)
[2021-04-15 09:55] LABS: Add Urine Microscopic? NO; Charge for UA Resulting for Rev
[2021-04-15 10:01] LABS: Bilirubin Urine Neg (Negative); Blood Urine Neg (Negative); Glucose Urine UA Norm (Normal); Ketones Urine 1+ (Negative); Leukocyte Esterase Urine Negative (Negative); Nitrate Urine Negative (Negative); Protein Urine Neg (Negative); Urine Appearance Clear (CLEAR); Urine Color Yellow (Yellow); Urobilinogen Urine Norm (Negative); pH Urine 5 (5-7)
[2021-04-15 10:13] LABS: Urine Creatinine 71 mg/dL (39-259); Urine Random Sodium 22 mmol/L
[2021-04-15 10:23] LABS: Lactate (Lactic Acid level) 0.8 mmol/L (0.5-2.2)
--- NOTE | 2021-04-15 10:28 | XRR_ITS ---
PROCEDURE INFORMATION: Exam: XR Chest Exam date and time: 04/15/2021 10:28 AM Age: 70 years old Clinical indication: Cough; Additional info: Couch, malaise TECHNIQUE: Imaging protocol: XR of the chest. Views: 1 view. Total images: 1 COMPARISON: CR XR chest 1V portable [id number] 03/26/2021 7:22 AM FINDINGS: Lungs: Unremarkable. No consolidation. Pleural spaces: Unremarkable. No pleural effusion. No pneumothorax. Heart/Mediastinum: Unremarkable. No cardiomegaly. Bones/joints: Unremarkable. XR/XR chest 1V portable [id number] IMPRESSION: No acute findings.
[2021-04-15] MEDS: folic acid 1 mg Tablet PO (10:52)
[2021-04-15] MEDS: multivitamin therapeutic Tablet 1 TAB PO (10:52)
[2021-04-15] MEDS: thiamine 100 mg Tablet PO (10:53)
[2021-04-15] MEDS: pantoprazole DR 40 mg Tablet PO (10:53)
[2021-04-15] MEDS: lactated ringers 1,000 ML 75 ML IV (10:53)
[2021-04-15 11:13] LABS: Urea Nitrogen,Urine Random 134 mg/dL
[2021-04-15 11:20] LABS: Adenovirus Not Detected (NOT DETECT); Chlamydia Pneumoniae Not Detected (NOT DETECT); Coronavirus 229E,HKU1,NL63,OC4 Not Detected (NOT DETECT); Human Metapneumovirus Not Detected (NOT DETECT); Human Rhinovirus/Enterovirus Not Detected (NOT DETECT); Influenza A Not Detected (NOT DETECT); Influenza A H1 Not Detected (NOT DETECT); Influenza A H1-2009 Not Detected (NOT DETECT); Influenza A H3 Not Detected (NOT DETECT); Influenza B Not Detected (NOT DETECT); Mycoplasma Pneumoniae Not Detected (NOT DETECT); Parainfluenza Virus Type 1 Not Detected (NOT DETECT); Parainfluenza Virus Type 2 Not Detected (NOT DETECT); Parainfluenza Virus Type 3 Not Detected (NOT DETECT); Parainfluenza Virus Type 4 Not Detected (NOT DETECT); Respiratory Syncytial Virus A Not Detected (NOT DETECT); Respiratory Syncytial Virus B Not Detected (NOT DETECT); SARS-COV-2 Not Detected (NOT DETECT)
[2021-04-15] MEDS: acetaminophen 325 mg Tablet 650 MG PO ×2 (12:40→18:49)
--- NOTE | 2021-04-15 15:56 | PC.CHAP ---
Pastoral Care Encounter/Spiritual Assessment Type of Contact [] Declined talent acquisition relationship manager visit [] Patient/Family/Request visit [] Outpatient visit [] Follow-up visit [] Physician referral [] Code/Alert [XX] Routine visit [] Staff referral [] Actively dying [] Patient sleeping [] Family support [] [] Out of room [] Palliative care [] [] Receiving care in room [] Pre-surgical visit [] Trauma [] Long length of stay [] ICU visit [] Other: Relational/Emotional Strength [] Patient feels connected with others/family/visitors/staff [] Distress [XX] Loneliness/isolation [] Abandonment Spirituality of Patient [] Person of Laurie [] Attends Christianity of their Laurie [XX] Believes in Prayer [] Reads Bible or Jehovah'S Witness materials [XX] There are Spiritual issues to be addressed Emergency Dispatch Operator Interventions [XX] Prayer [XX] Active listening [XX] Non-anxious presence [] Spiritual/emotional support [] Crisis/trauma care [] Spiritual counseling [] Bereavement support [] Provided bereavement packet [] Provided Bible/devotional materials [] Provided toy/stuffed animal, coloring book to patient or family member [] Provided Communion [] Anointing/[place] [] Salvation [XX] Completed spiritual assessment [XX] Other: pt would like rosary beads Impact on Illness or Injury [] Angry [] Fearful [XX] Anxious [] Often cries [] Exhaustion [] Unable to work [] Unable to attend voodoo [] Unable to walk/stand [] Unable to read [] Unable to drive [] Unable to eat/drink [] Unable to sleep [] Unable to be with family [] Patient intubated [] Other: Summary: Pt states that he has kidney failure but could not explain the treatment plan (may not yet be known). Pt's spouse is in [place] as her father recently . Pt's phone is at home. Pt denies having anyone locally who could bring him his phone; he does not recall his 's mobile number. When pt was asked what he was feeling, pt replied, sad and began to cry. Jehovah'S Witness heritage is Anabaptist. Emergency Dispatch Operator asked what might bring him comfort and pt mentioned rosary beads. Pt accepted prayer and grabbed talent acquisition relationship manager's hand with both of his hands. Time spent with patient: 10 mins
[2021-04-15] MEDS: ondansetron 2 mg/ML SDV 2 mL 4 MG IVP (20:48)
[2021-04-16] MEDS: lactated ringers 1,000 ML 75 ML IV (00:16)
[2021-04-16] MEDS: acetaminophen 325 mg Tablet 650 MG PO ×2 (01:00→08:28)
[2021-04-16 04:00] VITALS: BP 132/72; PULSE 89; RESP 17; TEMP 37; O2SAT 98
--- NOTE | 2021-04-16 06:00 | US_ITS ---
WS: [id number] ULTRASOUND RENAL TECHNIQUE: Ultrasound examination of both kidneys. CLINICAL INFORMATION: ela COMPARISON: None. FINDINGS: RIGHT: Right renal cortical atrophy Echogenicity: Normal. Cortical thickness: 0.7 cm; Normal. Hydronephrosis: None. Perinephric fluid: None. Right kidney measures: 8.6 cm x 3.2 cm x 4.5 cm. LEFT: Left renal cortical atrophy Echogenicity: Normal. Cortical thickness: 0.9 cm; Normal. Hydronephrosis: None. Perinephric fluid: None. Left kidney measures: 8.5 cm x 3.9 cm x 4.6 cm. Normal visualized aorta. Normal bladder. US/US renal BI* [id number] IMPRESSION: 1. Bilateral renal cortical atrophy. 2. No hydronephrosis in either kidney.
[2021-04-16 06:12] LABS: Basophils # 0.2 10^3/uL (0.0-0.1); Eosinophils # 0.1 10^3/uL (0.0-0.8); Eosinophils % 0.6 %; Hematocrit 27.3 % (42.0-52.0); Hemoglobin 8.9 g/dL (11.7-16.6); Lymphocytes # 3.3 10^3/uL (0.8-4.8); Lymphocytes % 40.5 %; Mean Corpuscular HGB Conc 32.6 g/dL (30.0-36.0); Mean Corpuscular Hemoglobin 30.2 pg (28.0-34.0); Mean Corpuscular Volume 92.5 fl (80-94); Mean Platelet Volume 10.6 fL (7.4-10.4); Monocytes # 0.3 10^3/uL (0.2-0.9); Monocytes % 3.7 %; Neutrophils # 4.28 10^3/uL (1.8-7.7); Neutrophils % 53.1 %; Nucleated Red Blood Cells % 0 %; Platelet Count 600 10^3/cmm (130-400); Red Blood Count 2.95 10^6/uL (4.1-5.3); Red Cell Distribution Width 18.6 % (12.1-15.1); White Blood Count 8.1 10^3/uL (4.0-10.0)
--- NOTE | 2021-04-16 06:33 | PC.NURSE ---
SHIFT SUMMARY Has not slept well tonight. Says he usually takes something at home to help him sleep but doesn't remember what. essage was sent to hospitalist [employer] but nothing ever ordered for sleep. Did have po Tylenol for c//o pain all over but juanita headache. Nauseated in the evening and did recieve IV Zofran with good relief. IV fluids infusing without difficulty
[2021-04-16 06:40] LABS: Alanine Aminotransferase 13 U/L (0-41); Alkaline Phosphatase 248 IU/L (40-130); Anion Gap 13.1 (5-19); Aspartate Amino Transferase 21 U/L (0-40); Blood Urea Nitrogen 15 mg/dL (8-23); Calcium 8.1 mg/dL (8.5-10.5); Carbon Dioxide 19 mmol/L (22-29); Chloride 109 mmol/L (98-107); Globulin 2.8 g/dL (1.3-4.6); Glomerular Filtration Rate 29.7 mL/min (90-130); Glucose 88 mg/dL (65-115); Magnesium 1.9 mg/dL (1.7-2.3); Osmolality Calculated 284 mOsm/kg (285-295); Potassium 4.1 mmol/L (3.5-5.1); Sodium 137 mmol/L (136-145); Thyroid Stimulating Hormone 1.37 uIU/mL (0.27-4.20); Total Bilirubin 0.3 mg/dL (0.15-1.2); Total Protein 5.8 g/dL (6.6-8.7)
[2021-04-16 07:40] VITALS: BP 161/80; PULSE 86; RESP 16; TEMP 37.3; O2SAT 97
[2021-04-16] MEDS: multivitamin therapeutic Tablet 1 TAB PO (08:28)
[2021-04-16] MEDS: folic acid 1 mg Tablet PO (08:28)
[2021-04-16] MEDS: pantoprazole DR 40 mg Tablet PO (08:28)
[2021-04-16] MEDS: thiamine 100 mg Tablet PO (08:28)
--- NOTE | 2021-04-16 10:11 | P.DS_ITS ---
Discharge Providers Date of Admission: 04/15/21 08:29 Date of Discharge: April 16, 2021 Attending Provider at Admission: Gerard Garcia Attending Provider at Discharge: Darryl Maxwell MD Primary Care Provider: Loni Che Diagnoses at Discharge Discharge Diagnosis (1) Malaise: Status: Acute (2) Acute encephalopathy: Status: Acute (3) Acute kidney injury superimposed on CKD: Status: Acute (4) Metabolic acidosis: Status: Acute Reason for Visit Reason for Visit: HIGH BLOOD PRESSURE Hospital Course Hospital Course History as per HPI. Pleasant 70-year-old gentleman with history of rheumatoid arthritis on methotrexate, HTN, alcohol use disorder, on 03/26 diagnosed with subdural hematoma transferred to [facility] for evaluation, smoking addiction, presents stating initially due to high blood pressure, but blood pressures are good in ER, when told this is surprised, then states has not been feeling unwell with malaise, he cannot tell me for how long, but has been having headache, diffuse body aches, cough, denies sore throat, runny nose, sneezing, no nausea vomiting or diarrhea. He is afebrile, WBC 10.8, heart rate 101. Hemoglobin 10.6, platelets 797. BMP with normal sodium, potassium, chloride, bicarb 18, anion gap 21.1, BUN 18, creatinine 3.1, glucose 129. Patient went to the hospital for further evaluation of possible metabolic encephalopathy. During hospitalization he was found to be slightly dehydrated so started on IV fluids. His creatinine improved to its baseline. Kidney ultrasound was done which ruled out any obstruction, hydronephrosis and consistent with medical renal disease. He was found to have elevated blood pressures for which his antihypertensives were adjusted. Patient is to take amlodipine 10 mg oral daily in addition to lisinopril daily. Patient is back to his baseline mentation. His metabolic encephalopathy is most likely secondary to polypharmacy including high-dose of Lexapro and Seroquel given his DAHLIA from dehydration and chronic alcohol use. His dose of Seroquel was decreased to 25 mg daily. Patient is been discharged in hemodynamically stable condition advised to follow-up with his primary care provider within next 1 week to 10 days. He is advised to avoid taking NSAIDs given his kidney injury. Physical Exam Const: COMMON NORMALS: no acute distress and patient oriented x3 GENERAL APPEARANCE: anxious HENMT: COMMON NORMALS: oropharynx normal Neck/C-Spine: COMMON NORMALS: no JVD Resp: COMMON NORMALS: normal respiratory effort and clear to auscultation bilaterally AUSCULTATION: clear to auscultation bilaterally Cardio: COMMON NORMALS: no JVD, regular rhythm, S1 normal heart sound present, S2 normal heart sound present and No murmurs present (Cardio) RHYTHM: regular rhythm HEART SOUNDS: S1 normal heart sound present and S2 normal heart sound present GI: COMMON NORMALS: Normal to inspection, nondistended, normoactive bowel sounds present, Soft to palpation and non-tender PALPATION: Yes Soft to palpation Extremity: COMMON NORMALS: no joint enlargement and no pedal edema Neuro: COMMON NORMALS: patient oriented x3 and moves all extremities OTHER: Resting tremor Skin: COMMON NORMALS: no rashes or lesions noted GENERAL SKIN EXAM: no rashes or lesions noted Discharge Data Data Completed and Pending: Completed Studies During Hospitalization Category Date Time Status CT head wo con* [id number] Urgent Cat Scan 04/15/21 07:12 Completed XR chest 1V tiffanie ble [id number] Routine Exams 04/15/21 10:28 Completed US renal BI* [id number] Urgent Ultrasound 04/16/21 06:00 Completed Pending at discharge Category Date Time Status Magnesium AM LABS Lab 04/17/21 04:00 Ordered Magnesium AM LABS Lab 04/18/21 04:00 Ordered Labs from last 24 hours 04/16/21 04/16/21 04/15/21 05:10 05:10 10:00 WBC 8.1 RBC 2.95 L Hgb 8.9 L Hct 27.3 L MCV 92.5 MCH 30.2 MCHC 32.6 RDW 18.6 H Plt Count 600 H MPV 10.6 H Neut % (Auto) 53.1 Lymph % (Auto) 40.5 [place] % (Auto) 3.7 Eos % (Auto) 0.6 Baso % (Auto) 2.0 Neut # (Auto) 4.28 Lymph # (Auto) 3.3 [place] # (Auto) 0.3 Eos # (Auto) 0.1 Baso # (Auto) 0.2 H Nucleated RBC % (a uto) 0 Nucleated RBCs # 0.0 Sodium 137 Potassium 4.1 Chloride 109 H Carbon Dioxide 19 L Anion Gap 13.1 BUN 15 Creatinine 2.2 H GFR Calculation 29.7 L Glucose 88 Calculated Osmolal ity 284 L Lactate 0.8 Calcium 8.1 L Magnesium 1.9 Total Bilirubin 0.3 AST 21 ALT 13 Alkaline Phosphata se 248 H Total Protein 5.8 L D Albumin 3.0 L Globulin 2.8 TSH 1.37 Ur Random Sodium Ur Random Urea Nit rogn Urine Creatinine Coronavirus 229E ( PCR) SARS-CoV-2 (PCR) 04/15/21 04/15/21 04/15/21 09:47 09:47 09:16 WBC RBC Hgb Hct MCV MCH MCHC RDW Plt Count MPV Neut % (Auto) Lymph % (Auto) [place] % (Auto) Eos % (Auto) Baso % (Auto) Neut # (Auto) Lymph # (Auto) [place] # (Auto) Eos # (Auto) Baso # (Auto) Nucleated RBC % (a uto) Nucleated RBCs # Sodium Potassium Chloride Carbon Dioxide Anion Gap BUN Creatinine GFR Calculation Glucose Calculated Osmolal ity Lactate Calcium Magnesium Total Bilirubin AST ALT Alkaline Phosphata se Total Protein Albumin Globulin TSH Ur Random Sodium 22 Ur Random Urea Nit rogn 134 Urine Creatinine 71 Coronavirus 229E ( PCR) Not detected SARS-CoV-2 (PCR) Not detected Addt'l Data from Hospital Stay: Laboratory Results WBC 8.1 10^3/uL (4.0- 10.0) 04/16/21 05:10 RBC 2.95 10^6/uL (4.1 -5.3) L 04/16/21 05:10 Hgb 8.9 g/dL (11.7-16 .6) L 04/16/21 05:10 Hct 27.3 % (42.0-52.0 ) L 04/16/21 05:10 MCV 92.5 fl (80-94) 04/16/21 05:10 MCH 30.2 pg (28.0-34. 0) 04/16/21 05:10 MCHC 32.6 g/dL (30.0-3 6.0) 04/16/21 05:10 RDW 18.6 % (12.1-15.1 ) H 04/16/21 05:10 Plt Count 600 10^3/cmm (130 -400) H 04/16/21 05:10 MPV 10.6 fL (7.4-10.4 ) H 04/16/21 05:10 Neut % (Auto) 53.1 % 04/16/21 05:10 Lymph % (Auto) 40.5 % 04/16/21 05:10 [place] % (Auto) 3.7 % 04/16/21 05:10 Eos % (Auto) 0.6 % 04/16/21 05:10 Baso % (Auto) 2.0 % 04/16/21 05:10 Neut # (Auto) 4.28 10^3/uL (1.8 -7.7) 04/16/21 05:10 Lymph # (Auto) 3.3 10^3/uL (0.8- 4.8) 04/16/21 05:10 [place] # (Auto) 0.3 10^3/uL (0.2- 0.9) 04/16/21 05:10 Eos # (Auto) 0.1 10^3/uL (0.0- 0.8) 04/16/21 05:10 Baso # (Auto) 0.2 10^3/uL (0.0- 0.1) H 04/16/21 05:10 Nucleated RBC % (a uto) 0 % 04/16/21 05:10 Nucleated RBCs # 0.0 /100WBC 04/16/21 05:10 Sodium 137 mmol/L (136-1 45) 04/16/21 05:10 Potassium 4.1 mmol/L (3.5-5 .1) 04/16/21 05:10 Chloride 109 mmol/L (98-10 7) H 04/16/21 05:10 Carbon Dioxide 19 mmol/L (22-29) L 04/16/21 05:10 Anion Gap 13.1 (5-19) 04/16/21 05:10 BUN 15 mg/dL (8-23) 04/16/21 05:10 Creatinine 2.2 mg/dL (0.7-1. 2) H 04/16/21 05:10 GFR Calculation 29.7 mL/min (90-1 30) L 04/16/21 05:10 Glucose 88 mg/dL (65-115) 04/16/21 05:10 Calculated Osmolal ity 284 mOsm/kg (285- 295) L 04/16/21 05:10 Lactate 0.8 mmol/L (0.5-2 .2) 04/15/21 10:00 Calcium 8.1 mg/dL (8.5-10 .5) L 04/16/21 05:10 Magnesium 1.9 mg/dL (1.7-2. 3) 04/16/21 05:10 Total Bilirubin 0.3 mg/dL (0.15-1 .2) 04/16/21 05:10 Direct Bilirubin 0.20 mg/dL (0.00- 0.30) 04/15/21 06:10 AST 21 U/L (0-40) 04/16/21 05:10 ALT 13 U/L (0-41) 04/16/21 05:10 Alkaline Phosphata se 248 IU/L (40-130) H 04/16/21 05:10 Total Protein 5.8 g/dL (6.6-8.7 ) L D 04/16/21 05:10 Albumin 3.0 g/dL (3.5-5.2 ) L 04/16/21 05:10 Globulin 2.8 g/dL (1.3-4.6 ) 04/16/21 05:10 TSH 1.37 uIU/mL (0.27 -4.20) 04/16/21 05:10 Urine Color Yellow (Yellow) 04/15/21 09:47 Urine Appearance Clear (CLEAR) 04/15/21 09:47 Urine pH 5 (5-7) 04/15/21 09:47 Ur Specific Gravit y 1.010 (1.005-1.0 30) 04/15/21 09:47 Urine Protein Neg (Negative) 04/15/21 09:47 Urine Glucose (UA) Norm (Normal) 04/15/21 09:47 Urine Ketones 1+ (Negative) H 04/15/21 09:47 Urine Blood Neg (Negative) 04/15/21 09:47 Urine Nitrate Negative (Negati ve) 04/15/21 09:47 Urine Bilirubin Neg (Negative) 04/15/21 09:47 Urine Urobilinogen Norm mg/dL (Negat saloni) 04/15/21 09:47 Ur Leukocyte Brittny ase Negative (Negati ve) 04/15/21 09:47 Ur Random Sodium 22 mmol/L 04/15/21 09:47 Ur Random Urea Nit rogn 134 mg/dL 04/15/21 09:47 Urine Creatinine 71 mg/dL (39-259) 04/15/21 09:47 Coronavirus 229E ( PCR) Not detected (NO T DETECT) 04/15/21 09:16 SARS-CoV-2 (PCR) Not detected (NO T DETECT) 04/15/21 09:[address] 04/15/21 07:12 IMPRESSION: 1. No acute intracranial pathology detected. 2. Low-density extra-axial fluid slightly higher than CSF felt to represent chronic subdural hemorrhages but appear unchanged from the prior exam. Chest X-Ray 04/15/21 10:28 IMPRESSION: No acute findings. Renal Ultrasound 04/16/21 06:00 IMPRESSION: 1. Bilateral renal cortical atrophy. 2. No hydronephrosis in either kidney. Vitals: Last Vital Signs Temp 99.1 F 04/16/21 07:40 Pulse 86 04/16/21 07:40 Resp 16 04/16/21 07:40 BP 161/80 04/16/21 07:40 Pulse Ox 97 04/16/21 07:40 Discharge Plan Discharge Patient Disposition: Home Condition: Stable Prescriptions: New pantoprazole 40 mg Tablet,Delayed Release (Dr/Ec) 40 mg PO DAILY Qty: 30 RF: 0 amlodipine 10 mg tablet 10 mg PO DAILY Qty: 30 RF: 0 Continued diclofenac sodium [Voltaren Arthritis Pain] 1 % gel 2 g topical QID Qty: 100 RF: 2 methotrexate sodium 2.5 mg tablet 2.5 mg PO .COMPLEX RF: 0 folic acid 1 mg tablet 1 mg PO DAILY RF: 0 lisinopril 10 mg tablet 10 mg PO DAILY RF: 0 Lexapro 10 mg Tablet 10 mg PO DAILY RF: 0 Changed quetiapine 50 mg tablet 25 mg PO BEDTIME Qty: 0 RF: 0 Discharge Orders: Discharge Order (Routine); Ordered 04/16/21 Ordered By: Darryl Maxwell Referrals: Loni Che PA [Primary Care Provider] - 04/23/21 10:00 am Discharge Diet: Cardiac Discharge Activity: Resume usual activity Patient Instructions: Amlodipine (By mouth) (Hypertenipine-2.5, Norvasc), Pantoprazole (By mouth) (Protonix), Hepatic Encephalopathy (DC), Opioid Safety Discharge Attestations Time Spent in Discharge Care*: greater than 30 min Specific Discharge Activities: educating patient, discussing with case consultant/social workers/dc planners, documenting/other paperwork and evaluating patient/reviewing data Status at Discharge: Cognitive status at discharge: cognitively intact , Behavioral status at discharge: cooperative , Functional status at discharge: independent ambulation Overall status at discharge: patient is back to baseline Quality Metrics Clinical Quality Measures During this hospital stay, did patient experience: None Coding Level of Care Code Acute Chg FW DC note Exam Comprehensive Diagnoses Malaise R53.81 Acute encephalopathy G93.40 Acute kidney injury superimposed on CKD N17.9; N18.9 Metabolic acidosis E87.2
--- NOTE | 2021-04-16 10:30 | PC.CHAP ---
Pastoral Care Encounter/Spiritual Assessment Type of Contact [] Declined rivet bucker visit [] Patient/Family/Request visit [] Outpatient visit [] Follow-up visit [] Physician referral [] Code/Alert x] Routine visit [] Staff referral [] Actively dying [] Patient sleeping [] Family support [] [] Out of room [] Palliative care [] [] Receiving care in room [] Pre-surgical visit [] Trauma [] Long length of stay [] ICU visit [] Other: Relational/Emotional Strength [x] Patient feels connected with others/family/visitors/staff [] Distress [] Loneliness/isolation [] Abandonment Spirituality of Patient [x] Person of Laurie [] Attends Caodaism of their Laurie [x] Believes in Prayer [] Reads Bible or Worship materials [] There are Spiritual issues to be addressed Welder Gas Interventions [x] Prayer [] Active listening [] Non-anxious presence [] Spiritual/emotional support [] Crisis/trauma care [] Spiritual counseling [] Bereavement support [] Provided bereavement packet [] Provided Bible/devotional materials [] Provided toy/stuffed animal, coloring book to patient or family member [] Provided Communion [] Anointing/[place] [] Salvation [x] Completed spiritual assessment [] Other: Impact on Illness or Injury [] Angry [] Fearful [] Anxious [] Often cries [] Exhaustion [] Unable to work [] Unable to attend rastafari [] Unable to walk/stand [] Unable to read [] Unable to drive [] Unable to eat/drink [] Unable to sleep [] Unable to be with family [] Patient intubated [] Other: Summary Time spent with patient 10 min gave roseryu to patient
[2021-04-16 11:02] VITALS: BP 161/80; PULSE 86; RESP 16; TEMP 37.3; O2SAT 97
== END 2021-04-16 11:03 | disposition home or self-care (01) ==
LOC: ER 09:01 → MEDSURG 09:58
PROVIDERS: Admitting Provider Internal Medicine; Emergency Provider Emergency Medicine; PCP Physician Assistant; Visit Provider Student in an Organized Health Care Education/Training Program
DX: R53.81 Other malaise (principal); G93.40 Encephalopathy, unspecified; N17.9 Acute kidney failure, unspecified; N18.9 Chronic kidney disease, unspecified; I12.9 Hypertensive chronic kidney disease with stage 1 through stage 4 chronic kidney disease, or unspecified chronic kidney disease; E87.2 Acidosis; M06.9 Rheumatoid arthritis, unspecified; Z79.52 Long term (current) use of systemic steroids; F17.210 Nicotine dependence, cigarettes, uncomplicated
CPT/HCPCS: 36415; 70450; 71045; 76770; 80048; 80053; 80076; 81003; 82570; 83605; 83735; 84300; 84443; 84540; 85025; 87635; 96361; 96374; 96375; 99285; G0378; J2405; J3411; J7030

== ENCOUNTER 2021-04-20 08:36 | Emergency (ER) | payer MEDICARE, MEDICAID, SELFPAY ==
[2021-04-20 08:37] VITALS: BP 136/82; PULSE 95; RESP 16; TEMP 37.1; O2SAT 100; BMI 19.3
--- NOTE | 2021-04-20 08:39 | ECG_ITS ---
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 Measurements Intervals [place] Rate: 79 P: 54 VT: 188 QRS: 61 QRSD: 76 T: 59 QT: 372 QTc: 428 Interpretive Statements SINUS RHYTHM Compared to ECG 04/11/2021 04:44:17 No significant changes Electronically Signed On 04-21-2021 4:49:05 COMPUTER BUILDER by Jatinder Ferreira M.D. [email or web address] [id number] f
--- NOTE | 2021-04-20 08:39 | XR_ITS ---
WS: [id number] CHEST XRAY TECHNIQUE: Portable chest. CLINICAL INFORMATION: dyspnea/cough COMPARISON: April 15, 2021 FINDINGS: Heart: Normal cardiac silhouette. Aortic calcification. Lungs: Moderate chronic emphysematous changes. Hyperinflation. No acute pulmonary infiltrates. Bones: Normal visualized bony structures. XR/XR chest 1V portable [id number] IMPRESSION: No acute chest findings
--- NOTE | 2021-04-20 08:43 | W.ED.GENADLT ---
HPI - General Adult General: Chief complaint: Nausea/Vomiting/Diarrhea Stated complaint: NOT FEELING WELL Time Seen by Provider: 04/20/21 08:38 History of Present Illness: HPI narrative: 70-year-old male presents emergency room stating he just does not feel well. Patient states he has had nausea and vomiting and feels very shaky. He was just discharged yesterday he admits after discharging going home and drinking a sixpack of beer not having drank since then. Patient has rheumatoid arthritis. He is also a aggressive alcoholic who maintains impressive blood alcohol is at times still coherent. He is not particularly having tremors now. Onset (ago): hour(s) Relieving factors: none Exacerbating factors: none Associated symptoms: Reports vomiting and weakness; Deny chest pain, confusion, cough, diaphoresis, fevers/chills, headache(s) or malaise Review of Systems Const: Denies: malaise or diaphoresis Card: Denies: chest pain GI: Reports: vomiting Neuro: Denies: headache(s) or confusion PFSH ED PFSH: Medical History Alcohol abuse Arthritis Chronic low back pain Hypertension Long-term use of high-risk medication Continue to monitor use Subdural hematoma Tobacco abuse counselled to quit smoking Surgical History History of appendectomy History of spinal surgery 25 years ago l4/5 fusion per pt Family History Father Stroke Other Hypertension Social History Smoking and tobacco status: current some day smoker cigarettes [ Other cigarette details: 1 PK WEEK ] Alcohol intake: former Desire information about substance/drug rehabilitation?: No Physical Exam Const: COMMON NORMALS: no acute distress GENERAL APPEARANCE: cooperative and comfortable ORIENTATION/CONSCIOUSNESS: Yes awake, Yes oriented to person, Yes oriented to place and Yes oriented to time HENMT: COMMON NORMALS: normocephalic, atraumatic and hearing grossly normal bilaterally HEAD & SCALP: normocephalic and atraumatic Neck/C-Spine: COMMON NORMALS: no JVD Resp: COMMON NORMALS: normal respiratory effort, No retractions, No use of accessory muscles and clear to auscultation bilaterally AUSCULTATION: clear to auscultation bilaterally Cardio: COMMON NORMALS: no JVD, regular rate, regular rhythm and No murmurs present (Cardio) RATE: regular rate RHYTHM: regular rhythm GI: COMMON NORMALS: Soft to palpation and No hepatosplenomegaly present AUSCULTATION: Yes normoactive bowel sounds PALPATION: Yes Soft to palpation, No Tenderness to palpation present (GI), No Guarding due to palpation present (GI) and Yes No hepatosplenomegaly present Extremity: COMMON NORMALS: normal to inspection, capillary refill normal, no clubbing, cyanosis or edema, no calf tenderness and no pedal edema Neuro: SENSORIUM/ORIENTATION: Yes oriented to person, Yes oriented to place and Yes oriented to time Skin: COMMON NORMALS: no rashes or lesions noted GENERAL SKIN EXAM: no rashes or lesions noted Course Vital Signs: Vital signs: Vital Signs Temperature 98.7 F 04/20/21 08:37 Pulse Rate 93 04/20/21 11:45 Respiratory Rate 20 H 04/20/21 11:45 Blood Pressure 163/99 04/20/21 11:45 Pulse Oximetry 100 04/20/21 11:45 MDM - General Adult MDM Narrative: Medical decision making narrative: Patient is feeling better after the fluids. Strongly encourage him to avoid alcohol use. His kidney function is slightly increased from what his baseline appears to be reviewing his old labs fluids should help with that. I asked him to follow-up next week with his primary care doctor. Increase fluid intake. Return if has further problems. Lab Data: Labs: Lab Results 04/20/21 04/20/21 04/20/21 08:50 08:50 08:50 WBC 10.3 10^3/uL H 10 ^3/uL (4.0-10.0) RBC 3.73 10^6/uL L 10 ^6/uL (4.1-5.3) Hgb 11.3 g/dL L g/dL (11.7-16.6) Hct 36.1 % L % (42.0-52.0) MCV 96.8 fl H fl (80-94) MCH 30.3 pg pg (28.0-34.0) MCHC 31.3 g/dL g/dL (30.0-36.0) RDW 21.4 % H % (12.1-15.1) Plt Count 468 10^3/cmm H 10 ^3/cmm (130-400) MPV 10.0 fL fL (7.4-10.4) Neut % (Auto) 56.2 % % Lymph % (Auto) 36.9 % % [place] % (Auto) 4.7 % % Eos % (Auto) 0.8 % % Baso % (Auto) 1.2 % % Neut # (Auto) 5.80 10^3/uL 10^3 /uL (1.8-7.7) Lymph # (Auto) 3.8 10^3/uL 10^3/ uL (0.8-4.8) [place] # (Auto) 0.5 10^3/uL 10^3/ uL (0.2-0.9) Eos # (Auto) 0.1 10^3/uL 10^3/ uL (0.0-0.8) Baso # (Auto) 0.1 10^3/uL 10^3/ uL (0.0-0.1) Nucleated RBC % (a uto) 0 % % Nucleated RBCs # 0.0 /100WBC /100W BC PT INR APTT Sodium 141 mmol/L mmol/L (136-145) Potassium 4.2 mmol/L mmol/L (3.5-5.1) Chloride 107 mmol/L mmol/L (98-107) Carbon Dioxide 18 mmol/L L mmol/ L (22-29) Anion Gap 20.2 H (5-19) BUN 15 mg/dL mg/dL (8-23) Creatinine 2.7 mg/dL H mg/dL (0.7-1.2) GFR Calculation 23.5 mL/min L mL/ min (90-130) Glucose 108 mg/dL mg/dL (65-115) Calculated Osmolal ity 293 mOsm/kg mOsm/ kg (285-295) Calcium 8.0 mg/dL L mg/dL (8.5-10.5) Total Bilirubin 0.3 mg/dL mg/dL (0.15-1.2) AST 16 U/L U/L (0-40) ALT 11 U/L U/L (0-41) Alkaline Phosphata se 228 IU/L H IU/L (40-130) Ammonia 20 umol/L umol/L (16-60) Creatine Kinase 54 U/L U/L (39-308) Total Protein 6.8 g/dL g/dL (6.6-8.7) Albumin 3.8 g/dL g/dL (3.5-5.2) Globulin 3.0 g/dL g/dL (1.3-4.6) Urine Color Urine Appearance Urine pH Ur Specific Gravit y Urine Protein Urine Glucose (UA) Urine Ketones Urine Blood Urine Nitrate Urine Bilirubin Urine Urobilinogen Ur Leukocyte Brittny ase 04/20/21 04/20/21 09:12 09:16 WBC RBC Hgb Hct MCV MCH MCHC RDW Plt Count MPV Neut % (Auto) Lymph % (Auto) [place] % (Auto) Eos % (Auto) Baso % (Auto) Neut # (Auto) Lymph # (Auto) [place] # (Auto) Eos # (Auto) Baso # (Auto) Nucleated RBC % (a uto) Nucleated RBCs # PT 14.40 SECONDS SEC ONDS (12.1-14.9) INR 1.09 (0.8-1.2) APTT 32.0 SECONDS SECO NDS (23.9-36.7) Sodium Potassium Chloride Carbon Dioxide Anion Gap BUN Creatinine GFR Calculation Glucose Calculated Osmolal ity Calcium Total Bilirubin AST ALT Alkaline Phosphata se Ammonia Creatine Kinase Total Protein Albumin Globulin Urine Color Yellow (Yellow) Urine Appearance Clear (CLEAR) Urine pH 5 (5-7) Ur Specific Gravit y 1.015 (1.005-1.030) Urine Protein Neg (Negative) Urine Glucose (UA) Norm (Normal) Urine Ketones 2+ H (Negative) Urine Blood Neg (Negative) Urine Nitrate Negative (Negative) Urine Bilirubin Neg (Negative) Urine Urobilinogen Norm mg/dL mg/dL (Negative) Ur Leukocyte Brittny ase Negative (Negative) Discharge Plan Discharge Patient Disposition: Home Clinical Impression: Dehydration, Alcohol abuse, CKD (chronic kidney disease) Condition: Stable Prescriptions: No Action diclofenac sodium [Voltaren Arthritis Pain] 1 % gel 2 g topical QID Qty: 100 RF: 2 methotrexate sodium 2.5 mg tablet 2.5 mg PO .COMPLEX RF: 0 folic acid 1 mg tablet 1 mg PO DAILY RF: 0 lisinopril 10 mg tablet 10 mg PO DAILY RF: 0 Lexapro 10 mg Tablet 10 mg PO DAILY RF: 0 pantoprazole 40 mg Tablet,Delayed Release (Dr/Ec) 40 mg PO DAILY Qty: 30 RF: 0 amlodipine 10 mg tablet 10 mg PO DAILY Qty: 30 RF: 0 quetiapine 50 mg tablet 25 mg PO BEDTIME Qty: 0 RF: 0 Discharge Orders: Discharge ED (Routine); Ordered 04/20/21 Ordered By: Dorian Lagunas Referrals: Loni Che PA [Primary Care Provider] - Discharge Diet: Usual diet Discharge Activity: Increase activity as tolerated Patient Instructions: Opioid Safety Activity Restrictions/Additional Instructions: Abstain from alcohol. Increase fluid intake recheck with your primary care doctor to repeat kidney function test next week. Coding Level of Care Code ED Filteration Operator for Ed Becerril
--- NOTE | 2021-04-20 08:54 | PC.NURSE ---
pt placed on continuous spo2, nibp, and cm.
[2021-04-20 08:55] VITALS: BP 136/82; PULSE 82; RESP 28; O2SAT 100
[2021-04-20 09:03] LABS: Basophils # 0.1 10^3/uL (0.0-0.1); Basophils % 1.2 %; Eosinophils # 0.1 10^3/uL (0.0-0.8); Eosinophils % 0.8 %; Hematocrit 36.1 % (42.0-52.0); Hemoglobin 11.3 g/dL (11.7-16.6); Lymphocytes # 3.8 10^3/uL (0.8-4.8); Lymphocytes % 36.9 %; Mean Corpuscular HGB Conc 31.3 g/dL (30.0-36.0); Mean Corpuscular Hemoglobin 30.3 pg (28.0-34.0); Mean Corpuscular Volume 96.8 fl (80-94); Monocytes # 0.5 10^3/uL (0.2-0.9); Monocytes % 4.7 %; Neutrophils % 56.2 %; Nucleated Red Blood Cells % 0 %; Platelet Count 468 10^3/cmm (130-400); Red Blood Count 3.73 10^6/uL (4.1-5.3); Red Cell Distribution Width 21.4 % (12.1-15.1); White Blood Count 10.3 10^3/uL (4.0-10.0)
[2021-04-20 09:22] LABS: Add Urine Microscopic? NO; Charge for UA Resulting for Rev
[2021-04-20 09:28] LABS: Bilirubin Urine Neg (Negative); Blood Urine Neg (Negative); Glucose Urine UA Norm (Normal); Ketones Urine 2+ (Negative); Leukocyte Esterase Urine Negative (Negative); Nitrate Urine Negative (Negative); Protein Urine Neg (Negative); Specific Gravity, Urine 1.015 (1.005-1.030); Urine Appearance Clear (CLEAR); Urine Color Yellow (Yellow); Urobilinogen Urine Norm (Negative); pH Urine 5 (5-7)
[2021-04-20 09:39] LABS: INR 1.09 (0.8-1.2)
[2021-04-20 09:43] LABS: Alanine Aminotransferase 11 U/L (0-41); Albumin Level 3.8 g/dL (3.5-5.2); Alkaline Phosphatase 228 IU/L (40-130); Anion Gap 20.2 (5-19); Aspartate Amino Transferase 16 U/L (0-40); Blood Urea Nitrogen 15 mg/dL (8-23); Carbon Dioxide 18 mmol/L (22-29); Chloride 107 mmol/L (98-107); Creatine Phosphokinase 54 U/L (39-308); Glomerular Filtration Rate 23.5 mL/min (90-130); Glucose 108 mg/dL (65-115); Osmolality Calculated 293 mOsm/kg (285-295); Potassium 4.2 mmol/L (3.5-5.1); Sodium 141 mmol/L (136-145); Total Bilirubin 0.3 mg/dL (0.15-1.2); Total Protein 6.8 g/dL (6.6-8.7)
[2021-04-20 09:45] LABS: Ammonia 20 umol/L (16-60)
[2021-04-20 10:00] VITALS: PULSE 94; RESP 22; O2SAT 100
[2021-04-20] MEDS: LORazepam 2 mg/mL INJ 1 mL 1 MG IVP (10:10)
[2021-04-20] MEDS: sodium chloride 0.9% 1,000 ML 999 ML IV (10:25)
--- NOTE | 2021-04-20 10:25 | PC.NURSE ---
while at bedside pt is in nad. pt does not verbalize any further needs at this time.
[2021-04-20 11:15] VITALS: BP 177/96; PULSE 89; RESP 17; O2SAT 100
[2021-04-20 11:45] VITALS: BP 163/99; PULSE 93; RESP 20; O2SAT 100
== END 2021-04-20 12:00 | disposition home or self-care (01) ==
PROVIDERS: Emergency Provider Family Medicine; PCP Physician Assistant
DX: F10.10 Alcohol abuse, uncomplicated (principal); E86.0 Dehydration; I12.9 Hypertensive chronic kidney disease with stage 1 through stage 4 chronic kidney disease, or unspecified chronic kidney disease; N18.9 Chronic kidney disease, unspecified; F17.210 Nicotine dependence, cigarettes, uncomplicated
CPT/HCPCS: 71045; 80053; 81003; 82140; 82550; 85025; 85610; 85730; 93005; 96361; 96374; 99283; J2060; J7030

== ENCOUNTER 2021-04-20 21:13 | Emergency (ER) | payer MEDICARE, MEDICAID, SELFPAY ==
[2021-04-20 21:13] VITALS: BP 147/84; PULSE 95; RESP 18; TEMP 36.7; O2SAT 100; BMI 20.7
--- NOTE | 2021-04-20 21:14 | ECG_ITS ---
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 Measurements Intervals [place] Rate: 89 P: 21 MN: 178 QRS: 30 QRSD: 88 T: 29 QT: 346 QTc: 422 Interpretive Statements SINUS RHYTHM Compared to ECG 04/20/2021 10:15:10 No significant changes Electronically Signed On 04-21-2021 4:47:08 WELDER [employer]ODUCTION [employer] GAS by Jatinder Ferreira M.D. [email or web address] regional health centerLittleCast, Inc.newark hospitalSoccer Manager/store/OM/[id number]
--- NOTE | 2021-04-20 21:14 | XRR_ITS ---
PROCEDURE INFORMATION: Exam: XR Chest Exam date and time: 04/20/2021 9:14 PM Age: 70 years old Clinical indication: Chest wall pain; Additional info: Cp TECHNIQUE: Imaging protocol: XR of the chest. Views: 1 view. COMPARISON: CR XR chest 1V portable [id number] 04/20/2021 9:20 AM FINDINGS: Lungs: Unremarkable. No consolidation. Pleural spaces: Unremarkable. No pleural effusion. No pneumothorax. Heart/Mediastinum: Unremarkable. No cardiomegaly. Bones/joints: No acute abnormality. XR/XR chest 1V portable [id number] IMPRESSION: No acute findings. Unchanged exam.
--- NOTE | 2021-04-20 21:17 | W.ED.CHESTPA ---
HPI - Chest Pain General: Chief Complaint: Chest Pain Stated Complaint: chest pain Time Seen by Provider: 04/20/21 21:13 Source: patient and EMS Mode of arrival: EMS Limitations: no limitations History of Present Illness: HPI narrative: 70-year-old male who is very well-known to the ER been here multiple times last week has a history of alcoholism patient called EMS tonight was having chest pain states started having chest pain 2 to 3 hours ago sharp pain in the center of his chest denies any shortness of breath denies any vomiting denies any diarrhea denies any worsening improving factors. Denies any cough or fever. Associated symptoms: Deny abdominal pain, dyspnea, fever(s), nausea or vomiting Review of Systems Const: Denies: fever(s), chills, body aches or change in appetite Eyes: Denies: blurry vision or eye discomfort ENMT: Denies: throat pain or dental pain Card: Reports: chest pain Resp: Denies: dyspnea GI: Denies: abdominal pain, nausea, vomiting or diarrhea : Denies: dysuria Musc: Denies: neck pain or back pain Skin/Breast: Denies: rash Neuro: Denies: headache(s) Psych: Denies: depression J Carlos/Lymph: Denies: easy bruising All/Imm: Denies: urticaria PFSH ED PFSH: Medical History Alcohol abuse Arthritis Chronic low back pain Hypertension Long-term use of high-risk medication Continue to monitor use Seropositive rheumatoid arthritis Subdural hematoma Tobacco abuse counselled to quit smoking Surgical History History of appendectomy History of spinal surgery 25 years ago l4/5 fusion per pt Family History Father Stroke Other Hypertension Social History Smoking and tobacco status: current some day smoker cigarettes [ Other cigarette details: 1 PK WEEK ] Alcohol intake: former Desire information about substance/drug rehabilitation?: No Physical Exam Const: COMMON NORMALS: no acute distress, patient oriented x3 and healthy appearing HENMT: COMMON NORMALS: normocephalic and atraumatic HEAD & SCALP: normocephalic and atraumatic Eye: COMMON NORMALS: Equal, round and reactive pupils present and EOMs intact bilaterally PUPIL: Yes Equal, round and reactive pupils present Neck/C-Spine: COMMON NORMALS: full ROM and supple Chest: COMMONS NORMALS: normal inspection of the chest and normal palpation of entire chest wall Resp: COMMON NORMALS: normal respiratory effort, No retractions, No use of accessory muscles and clear to auscultation bilaterally AUSCULTATION: clear to auscultation bilaterally Cardio: COMMON NORMALS: regular rate, regular rhythm and No murmurs present (Cardio) RATE: regular rate RHYTHM: regular rhythm GI: COMMON NORMALS: Normal to inspection, nondistended, normoactive bowel sounds present, Soft to palpation, non-tender and no masses PALPATION: Yes Soft to palpation Extremity: COMMON NORMALS: normal to inspection and full ROM Neuro: COMMON NORMALS: patient oriented x3, moves all extremities and no focal motor deficits Psych: COMMON NORMALS: mental status grossly normal, Normal thought process present and cooperative THOUGHT PROCESS: Normal thought process present Skin: COMMON NORMALS: no rashes or lesions noted and no wounds GENERAL SKIN EXAM: no rashes or lesions noted Course Vital Signs: Vital signs: Vital Signs Temperature 98.0 F 04/20/21 21:13 Pulse Rate 98 04/20/21 21:44 Respiratory Rate 20 H 04/20/21 21:44 Blood Pressure 178/88 04/20/21 21:44 Pulse Oximetry 100 04/20/21 21:44 MDM - Chest Pain MDM Narrative: Medical decision making narrative: Patient presents here with chest pain atypical in nature repeat troponin here is negative no signs of acute coronary syndrome aortic dissection or pulmonary embolism. Patient stable for discharge and return if worsening. Lab Data: Labs: Lab Results 04/20/21 04/20/21 04/20/21 21:00 21:00 21:00 WBC 11.3 10^3/uL H 10 ^3/uL (4.0-10.0) RBC 3.65 10^6/uL L 10 ^6/uL (4.1-5.3) Hgb 11.3 g/dL L g/dL (11.7-16.6) Hct 34.7 % L % (42.0-52.0) MCV 95.1 fl H fl (80-94) MCH 31.0 pg pg (28.0-34.0) MCHC 32.6 g/dL g/dL (30.0-36.0) RDW 19.9 % H % (12.1-15.1) Plt Count 519 10^3/cmm H 10 ^3/cmm (130-400) MPV 10.3 fL fL (7.4-10.4) Neut % (Auto) 71.5 % % Lymph % (Auto) 21.9 % % [place] % (Auto) 5.1 % % Eos % (Auto) 0.2 % % Baso % (Auto) 1.0 % % Neut # (Auto) 8.06 10^3/uL H 10 ^3/uL (1.8-7.7) Lymph # (Auto) 2.5 10^3/uL 10^3/ uL (0.8-4.8) [place] # (Auto) 0.6 10^3/uL 10^3/ uL (0.2-0.9) Eos # (Auto) 0.0 10^3/uL 10^3/ uL (0.0-0.8) Baso # (Auto) 0.1 10^3/uL 10^3/ uL (0.0-0.1) Nucleated RBC % (a uto) 0 % % Nucleated RBCs # 0.0 /100WBC /100W BC Sodium 143 mmol/L mmol/L (136-145) Potassium 4.6 mmol/L mmol/L (3.5-5.1) Chloride 109 mmol/L H mmol /L (98-107) Carbon Dioxide 19 mmol/L L mmol/ L (22-29) Anion Gap 19.6 H (5-19) BUN 15 mg/dL mg/dL (8-23) Creatinine 2.4 mg/dL H mg/dL (0.7-1.2) GFR Calculation 26.9 mL/min L mL/ min (90-130) Glucose 131 mg/dL H mg/dL (65-115) Calculated Osmolal ity 299 mOsm/kg H mOs m/kg (285-295) Calcium 8.5 mg/dL mg/dL (8.5-10.5) Total Bilirubin 0.3 mg/dL mg/dL (0.15-1.2) AST 15 U/L U/L (0-40) ALT 11 U/L U/L (0-41) Alkaline Phosphata se 227 IU/L H IU/L (40-130) Troponin T Baselin e 47 ng/L H ng/L (0-15) Troponin T 120 Min [place] Delta Troponin T Total Protein 7.2 g/dL g/dL (6.6-8.7) Albumin 4.1 g/dL g/dL (3.5-5.2) Globulin 3.1 g/dL g/dL (1.3-4.6) Lipase 115 U/L H U/L (13-60) 04/20/21 23:49 WBC RBC Hgb Hct MCV MCH MCHC RDW Plt Count MPV Neut % (Auto) Lymph % (Auto) [place] % (Auto) Eos % (Auto) Baso % (Auto) Neut # (Auto) Lymph # (Auto) [place] # (Auto) Eos # (Auto) Baso # (Auto) Nucleated RBC % (a uto) Nucleated RBCs # Sodium Potassium Chloride Carbon Dioxide Anion Gap BUN Creatinine GFR Calculation Glucose Calculated Osmolal ity Calcium Total Bilirubin AST ALT Alkaline Phosphata se Troponin T Baselin e Troponin T 120 Min [place] 39.09 ng/L H ng/L (0-15) Delta Troponin T -7.91 ABS# L ABS# (0-10) Total Protein Albumin Globulin Lipase Imaging Data^: CXR: Attestation: I personally reviewed and interpreted this imaging study as follows: Radiologist's impression: [address] [address] XRay Report Signed Patient: Rubin Donnelly Unit #: [id number] : 1950 Age/Sex: 70 / M ADM Date: 04/20/21 Loc: ER Room/Bed: Attending Dr: Ordering Provider/Ordering MD: Beatrice Gu MD Date of Service: 04/20/21 Procedure(s): XR chest 1V portable [id number] Accession Number(s): [id number] Report Number: [id number] PROCEDURE INFORMATION: Exam: XR Chest Exam date and time: 04/20/2021 9:14 PM Age: 70 years old Clinical indication: Chest wall pain; Additional info: Cp TECHNIQUE: Imaging protocol: XR of the chest. Views: 1 view. COMPARISON: CR XR chest 1V portable [id number] 04/20/2021 9:20 AM FINDINGS: Lungs: Unremarkable. No consolidation. Pleural spaces: Unremarkable. No pleural effusion. No pneumothorax. Heart/Mediastinum: Unremarkable. No cardiomegaly. Bones/joints: No acute abnormality. XR/XR chest 1V portable [id number] IMPRESSION: No acute findings. Unchanged exam. Dictated By: Ruth Aguilar Signed By: Ruth Aguilar Signed Date/Time: 04/20/212140 DD/ 13 EKG Data^: EKG 1: Attestation: I personally reviewed and interpreted this EKG as follows: EKG interpretation date: 04/20/21 EKG interpretation time: 21:37 Interpretation: nsr hr [address] or t wave abnormalities qrs 88 qtc 393 Discharge Plan Discharge Patient Disposition: Home Clinical Impression: Chest pain Condition: Stable Prescriptions: No Action diclofenac sodium [Voltaren Arthritis Pain] 1 % gel 2 g topical QID Qty: 100 RF: 2 methotrexate sodium 2.5 mg tablet 2.5 mg PO .COMPLEX RF: 0 folic acid 1 mg tablet 1 mg PO DAILY RF: 0 lisinopril 10 mg tablet 10 mg PO DAILY RF: 0 Lexapro 10 mg Tablet 10 mg PO DAILY RF: 0 pantoprazole 40 mg Tablet,Delayed Release (Dr/Ec) 40 mg PO DAILY Qty: 30 RF: 0 amlodipine 10 mg tablet 10 mg PO DAILY Qty: 30 RF: 0 quetiapine 50 mg tablet 25 mg PO BEDTIME Qty: 0 RF: 0 Discharge Orders: Discharge ED (Routine); Ordered 04/21/21 Ordered By: Beatrice Gu Referrals: Loni Che PA [Primary Care Provider] - Discharge Diet: Advance as tolerated Discharge Activity: Resume usual activity Patient Instructions: Chest Pain (ED) Coding Level of Care Code ED Hard[place] Floor Refinisher for Chg Fwd Exam Comprehensive
[2021-04-20 21:31] LABS: Basophils # 0.1 10^3/uL (0.0-0.1); Eosinophils % 0.2 %; Hematocrit 34.7 % (42.0-52.0); Hemoglobin 11.3 g/dL (11.7-16.6); Lymphocytes # 2.5 10^3/uL (0.8-4.8); Lymphocytes % 21.9 %; Mean Corpuscular HGB Conc 32.6 g/dL (30.0-36.0); Mean Corpuscular Volume 95.1 fl (80-94); Mean Platelet Volume 10.3 fL (7.4-10.4); Monocytes # 0.6 10^3/uL (0.2-0.9); Monocytes % 5.1 %; Neutrophils # 8.06 10^3/uL (1.8-7.7); Neutrophils % 71.5 %; Nucleated Red Blood Cells % 0 %; Platelet Count 519 10^3/cmm (130-400); Red Blood Count 3.65 10^6/uL (4.1-5.3); Red Cell Distribution Width 19.9 % (12.1-15.1); White Blood Count 11.3 10^3/uL (4.0-10.0)
[2021-04-20 21:44] VITALS: BP 178/88; PULSE 98; RESP 20; O2SAT 100
[2021-04-20 21:48] LABS: Troponin(5th) Baseline 47 ng/L (0-15)
[2021-04-20 21:52] LABS: Alanine Aminotransferase 11 U/L (0-41); Albumin Level 4.1 g/dL (3.5-5.2); Alkaline Phosphatase 227 IU/L (40-130); Anion Gap 19.6 (5-19); Aspartate Amino Transferase 15 U/L (0-40); Blood Urea Nitrogen 15 mg/dL (8-23); Calcium 8.5 mg/dL (8.5-10.5); Carbon Dioxide 19 mmol/L (22-29); Chloride 109 mmol/L (98-107); Globulin 3.1 g/dL (1.3-4.6); Glomerular Filtration Rate 26.9 mL/min (90-130); Glucose 131 mg/dL (65-115); Lipase 115 U/L (13-60); Osmolality Calculated 299 mOsm/kg (285-295); Potassium 4.6 mmol/L (3.5-5.1); Sodium 143 mmol/L (136-145); Total Bilirubin 0.3 mg/dL (0.15-1.2); Total Protein 7.2 g/dL (6.6-8.7)
--- NOTE | 2021-04-20 23:14 | ECG_ITS ---
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 Measurements Intervals [place] Rate: 80 P: 54 [place]: 172 QRS: 52 QRSD: 85 T: 59 QT: 354 QTc: 409 Interpretive Statements SINUS RHYTHM Compared to ECG 04/20/2021 21:37:04 No significant changes Electronically Signed On 04-21-2021 4:50:40 COFFIN MAKER by Jatinder Ferreira M.D. [email or web address] [email or web address] baptist medical centerCYA Technologiescity hospitalEvino/store/[id number]
[2021-04-21 00:34] LABS: Troponin 5 2HR 39.09 ng/L (0-15)
[2021-04-21 01:53] VITALS: BP 176/88; PULSE 94; RESP 18; O2SAT 100
== END 2021-04-21 01:10 | disposition home or self-care (01) ==
PROVIDERS: Emergency Provider Emergency Medicine; PCP Physician Assistant
DX: R07.89 Other chest pain (principal); F17.210 Nicotine dependence, cigarettes, uncomplicated; I10 Essential (primary) hypertension
CPT/HCPCS: 71045; 80053; 83690; 84484; 85025; 93005; 99283

== ENCOUNTER 2021-04-21 07:38 | Emergency (ER) | payer MEDICARE, MEDICAID, SELFPAY ==
[2021-04-21 07:40] VITALS: BP 181/96; PULSE 92; RESP 18; TEMP 36.9; O2SAT 91; BMI 27.4
--- NOTE | 2021-04-21 07:45 | ECG_ITS ---
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 Measurements Intervals [place] Rate: 84 P: 44 [place]: 167 QRS: 57 QRSD: 93 T: 55 QT: 358 QTc: 424 Interpretive Statements SINUS RHYTHM Compared to ECG 04/21/2021 00:05:56 No significant changes Electronically Signed On 04-21-2021 14:57:34 BEEF FARMER by Shauna Gunter M.D. [id number]
--- NOTE | 2021-04-21 07:48 | ED_ITS ---
HPI - Seizure General: Chief Complaint: Seizure Stated Complaint: SEIZURE Time Seen by Provider: 04/21/21 07:40 History of Present Illness: HPI Narrative: 70-year-old male with a history of alcohol abuse presents emergency room after having tremors. He never fully lost consciousness according to his report he is afraid he was going to have a seizure so he called 911. Patient was recently hospitalized he was seen twice yesterday once for similar episode such as this and then again with complaints of elevated blood pressure. Patient told me yesterday morning when he was seen that he had drank during the previous day shortly after being dismissed from the hospital. Last night see ER note reviewed as well. At this time he is not having any chest pain. He denies drinking last night. From what I gather from patient he was worried he might have a seizure but it does not appear he actually had one. MD complaint: possible seizure Onset (ago): minute(s) Witnessed: No Trauma: No Seizure History: No Place: Home Possible Precipitating Event: alcohol withdrawal Associated symptoms: Deny chest pain, chills, confusion, cough, diaphoresis, fever(s), anorexia, malaise, rash, short of breath, syncope or weakness Treatments prior to arrival: none Review of Systems Const: Denies: fever(s), chills, malaise or diaphoresis ENMT: Denies: throat pain, ear or mastoid pain, nasal discharge or nasal congestion Card: Denies: chest pain or syncope Resp: Denies: dyspnea, productive cough or non-productive cough GI: Denies: abdominal pain, nausea, vomiting, hematemesis, coffee ground emesis, diarrhea, constipation, bloating, hematochezia or melena : Denies: flank pain, dysuria, urinary frequency or urinary urgency Neuro: Denies: confusion PFSH ED PFSH: Medical History Alcohol abuse Arthritis Chronic low back pain Hypertension Long-term use of high-risk medication Continue to monitor use Seropositive rheumatoid arthritis Subdural hematoma Tobacco abuse counselled to quit smoking Surgical History History of appendectomy History of spinal surgery 25 years ago l4/5 fusion per pt Family History Father Stroke Other Hypertension Social History Smoking and tobacco status: current some day smoker cigarettes [ Other cigarette details: 1 PK WEEK ] Alcohol intake: former Desire information about substance/drug rehabilitation?: No Physical Exam Const: COMMON NORMALS: no acute distress GENERAL APPEARANCE: cooperative and comfortable ORIENTATION/CONSCIOUSNESS: Yes awake, Yes oriented to person, Yes oriented to place and Yes oriented to time HENMT: COMMON NORMALS: normocephalic, atraumatic, hearing grossly normal bilaterally, external ears normal, EAC's normal, TM's normal bilaterally, Normal nasal mucous membranes and turbinates present, moist oral mucous membranes and o ropharynx normal HEAD & SCALP: normocephalic and atraumatic NOSE: Normal nasal mucous membranes and turbinates present EXTERNAL EAR: Yes external ears normal EXTERNAL AUDITORY CANAL: EAC's normal TYMPANIC MEMBRANE: TM's normal bilaterally Neck/C-Spine: COMMON NORMALS: no JVD Resp: COMMON NORMALS: normal respiratory effort, No retractions, No use of accessory muscles and clear to auscultation bilaterally AUSCULTATION: clear to auscultation bilaterally Cardio: COMMON NORMALS: no JVD, regular rate, regular rhythm and No murmurs present (Cardio) RATE: regular rate RHYTHM: regular rhythm GI: COMMON NORMALS: Soft to palpation and No hepatosplenomegaly present AUSCULTATION: Yes normoactive bowel sounds PALPATION: Yes Soft to palpation, No Tenderness to palpation present (GI), No Guarding due to palpation present (GI) and Yes No hepatosplenomegaly present Extremity: COMMON NORMALS: normal to inspection, capillary refill normal, no clubbing, cyanosis or edema, no calf tenderness and no pedal edema Neuro: SENSORIUM/ORIENTATION: Yes oriented to person, Yes oriented to place and Yes oriented to time Skin: COMMON NORMALS: no rashes or lesions noted GENERAL SKIN EXAM: no rashes or lesions noted Course Vital Signs: Vital signs: Vital Signs Temperature 98.4 F 04/21/21 08:00 Pulse Rate 97 04/21/21 10:18 Respiratory Rate 18 04/21/21 10:18 Blood Pressure 176/108 04/21/21 10:18 Pulse Oximetry 97 04/21/21 10:18 MDM - Seizure MDM Narrative: Medical decision making narrative: Dog and patient does not is only actually had any seizures she is very anxious and nervous because he has not been drinking and felt like he was going to have a seizure is not having any major tremors now. Monisha put him on Librium taper. Discussed with him we will discharge him home encouraged to continue abstinence from alcohol. Lab Data: Labs: Lab Results 04/21/21 04/21/21 07:45 08:40 Creatine Kinase Cancelled 52 U/L U/L (39-308) Ethyl Alcohol Cancelled < 10 mg/dL mg/dL (0-10) Discharge Plan Discharge Patient Disposition: Home Clinical Impression: Alcohol abuse, Anxiety Condition: Stable Prescriptions: New chlordiazepoxide HCl 10 mg capsule 10 mg PO Q8H Qty: 15 RF: 0 No Action diclofenac sodium [Voltaren Arthritis Pain] 1 % gel 2 g topical QID Qty: 100 RF: 2 methotrexate sodium 2.5 mg tablet 2.5 mg PO .COMPLEX RF: 0 folic acid 1 mg tablet 1 mg PO DAILY RF: 0 lisinopril 10 mg tablet 10 mg PO DAILY RF: 0 Lexapro 10 mg Tablet 10 mg PO DAILY RF: 0 pantoprazole 40 mg Tablet,Delayed Release (Dr/Ec) 40 mg PO DAILY Qty: 30 RF: 0 amlodipine 10 mg tablet 10 mg PO DAILY Qty: 30 RF: 0 quetiapine 50 mg tablet 25 mg PO BEDTIME Qty: 0 RF: 0 Discharge Orders: Discharge ED (Routine); Ordered 04/21/21 Ordered By: Dorian Lagunas Discharge Diet: Usual diet Discharge Activity: Increase activity as tolerated Patient Instructions: Opioid Safety Activity Restrictions/Additional Instructions: Abstain from alcohol Coding Level of Care Code ED Cleaner Touch Up Worker for Chg Fwd Exam Comprehensive
[2021-04-21 08:00] VITALS: BP 181/96; PULSE 88; RESP 18; TEMP 36.9; O2SAT 99
[2021-04-21 09:29] LABS: Creatine Phosphokinase 52 U/L (39-308)
[2021-04-21 09:35] LABS: Alcohol Level < 10 mg/dL (0-10)
[2021-04-21 10:18] VITALS: BP 176/108; PULSE 97; RESP 18; O2SAT 97
== END 2021-04-21 10:21 | disposition home or self-care (01) ==
PROVIDERS: Emergency Provider Family Medicine
DX: F10.10 Alcohol abuse, uncomplicated (principal); F41.9 Anxiety disorder, unspecified; I10 Essential (primary) hypertension; F17.210 Nicotine dependence, cigarettes, uncomplicated
CPT/HCPCS: 80307; 82550; 93005; 99283; 99291

== ENCOUNTER 2021-04-23 19:53 | Emergency (ER) | payer MEDICARE, MEDICAID, SELFPAY ==
[2021-04-23 20:25] VITALS: BP 129/68; PULSE 89; RESP 28; TEMP 36.5; O2SAT 99; BMI 19.3
== END 2021-04-23 22:15 | disposition left against medical advice (07) ==
PROVIDERS: Emergency Provider Family Medicine
DX: Z53.21 Procedure and treatment not carried out due to patient leaving prior to being seen by health care provider (principal)
CPT/HCPCS: 99282

== ENCOUNTER 2021-04-24 05:40 | Observation (INO) | payer MEDICARE, MEDICAID, SELFPAY ==
[2021-04-24] VITALS (12 sets, daily range): BP systolic 141–180; BP diastolic 73–93; PULSE 92–113; RESP 16–22; TEMP 36.4–37.1; O2SAT 96–100; BMI 20.7
--- NOTE | 2021-04-24 06:08 | W.ED.GENADLT ---
HPI - General Adult General: Chief complaint: General Medical Stated complaint: shacking, throwing up Time Seen by Provider: 04/24/21 05:57 History of Present Illness: HPI narrative: 70-year-old male presents emergency room complaining of tremor and vomiting. Patient has been to ER multiple times in the last week sometimes as many as 3 times in less than 24 hours. He still wearing the same clothes he was when he was seen 3 to 4 days ago. Today he states he stumbled and fell on the stairs in his home and hit his forehead and had a brief loss of consciousness. Patient presented to the emergency room on 12 6 after a fall and was found to have a small subdural hematoma was tried through the for neurosurgery in [place]. Patient's drinking has decreased recently in the last several times he was and he had not been drinking last year there were several occasions where he was in his blood alcohols were over 300. He denies any other injury denies any chest pain difficulty breathing abdominal pain he does have significant tremor. Onset (ago): hour(s) Location: head Severity: mild Pain Consistency: constant Relieving factors: none Exacerbating factors: none Associated symptoms: Reports malaise; Deny chest pain, confusion, cough, diaphoresis, decreased appetite, dyspnea, fevers/chills, headache(s), nausea, rash, palpitations, seizures, short of breath, syncope, vomiting or weakness Treatments prior to arrival: none Review of Systems Const: Reports: malaise; Denies: diaphoresis ENMT: Denies: throat pain, ear or mastoid pain, nasal discharge or nasal congestion Card: Denies: chest pain, palpitations or syncope Resp: Denies: dyspnea GI: Denies: nausea or vomiting : Denies: flank pain, dysuria, urinary frequency or urinary urgency Skin/Breast: Denies: rash Neuro: Denies: headache(s) or confusion PFS ED PFSH: Medical History Alcohol abuse Arthritis Chronic low back pain Hypertension Long-term use of high-risk medication Continue to monitor use Seropositive rheumatoid arthritis Subdural hematoma Tobacco abuse counselled to quit smoking Surgical History History of appendectomy History of spinal surgery 25 years ago l4/5 fusion per pt Family History Father Stroke Other Hypertension Social History Smoking and tobacco status: current some day smoker cigarettes [ Other cigarette details: 1 PK WEEK ] Alcohol intake: former Desire information about substance/drug rehabilitation?: No Physical Exam Const: ORIENTATION/CONSCIOUSNESS: Yes awake HENMT: COMMON NORMALS: normocephalic, atraumatic, hearing grossly normal bilaterally, external ears normal, EAC's normal, TM's normal bilaterally, Normal nasal mucous membranes and turbinates present, moist oral mucous membranes and oropharynx normal HEAD & SCALP: normocephalic and atraumatic NOSE: Normal nasal mucous membranes and turbinates present EXTERNAL EAR: Yes external ears normal EXTERNAL AUDITORY CANAL: EAC's normal TYMPANIC MEMBRANE: TM's normal bilaterally Eye: COMMON NORMALS: Equal, round and reactive pupils present, EOMs intact bilaterally, conjunctivae normal and no scleral icterus CONJUNCTIVA: Yes conjunctivae normal PUPIL: Yes Equal, round and reactive pupils present Neck/C-Spine: COMMON NORMALS: full ROM, no lymphadenopathy, supple and no JVD Resp: COMMON NORMALS: normal respiratory effort, No retractions, No use of accessory muscles and clear to auscultation bilaterally AUSCULTATION: clear to auscultation bilaterally Cardio: COMMON NORMALS: no JVD, regular rate, regular rhythm and No murmurs present (Cardio) RATE: regular rate RHYTHM: regular rhythm GI: COMMON NORMALS: Soft to palpation and No hepatosplenomegaly present AUSCULTATION: Yes normoactive bowel sounds PALPATION: Yes Soft to palpation, No Tenderness to palpation present (GI), No Guarding due to palpation present (GI) and Yes No hepatosplenomegaly present Extremity: COMMON NORMALS: normal to inspection, capillary refill normal, no clubbing, cyanosis or edema, no calf tenderness and no pedal edema Skin: COMMON NORMALS: no rashes or lesions noted GENERAL SKIN EXAM: no rashes or lesions noted Course Vital Signs: Vital signs: Vital Signs Temperature 98.6 F 04/25/21 12:19 Pulse Rate 99 04/25/21 12:19 Respiratory Rate 18 04/25/21 12:19 Blood Pressure 144/75 04/25/21 12:19 Pulse Oximetry 97 04/25/21 12:19 MDM - General Adult MDM Narrative: Medical decision making narrative: Patient deteriorating since the finding of subdural hematoma from early March. At this point his ability to manage his ADL is decreased to the point where he is not able to get a hold of any alcohol so has not been drinking he is having difficulty dealing with anxiety and withdrawal issues in addition of that he has some dehydration with acute on chronic renal failure. Patient needs rehabilitation at assisted level of care. Will admit for correction of acute on chronic renal failure and dehydration with plan for assisted placement. Iram with hospitalist orders written Lab Data: Labs: Lab Results 04/24/21 04/24/21 04/24/21 06:15 06:15 06:15 WBC 9.4 10^3/uL 10^3/ uL (4.0-10.0) RBC 3.65 10^6/uL L 10 ^6/uL (4.1-5.3) Hgb 11.2 g/dL L g/dL (11.7-16.6) Hct 33.5 % L % (42.0-52.0) MCV 91.8 fl fl (80-94) MCH 30.7 pg pg (28.0-34.0) MCHC 33.4 g/dL g/dL (30.0-36.0) RDW 20.0 % H % (12.1-15.1) Plt Count 345 10^3/cmm 10^3 /cmm (130-400) MPV 9.8 fL fL (7.4-10.4) Neut % (Auto) 79.8 % % Lymph % (Auto) 13.0 % % [place] % (Auto) 5.6 % % Eos % (Auto) 0.2 % % Baso % (Auto) 1.1 % % Neut # (Auto) 7.51 10^3/uL 10^3 /uL (1.8-7.7) Lymph # (Auto) 1.2 10^3/uL 10^3/ uL (0.8-4.8) [place] # (Auto) 0.5 10^3/uL 10^3/ uL (0.2-0.9) Eos # (Auto) 0.0 10^3/uL 10^3/ uL (0.0-0.8) Baso # (Auto) 0.1 10^3/uL 10^3/ uL (0.0-0.1) Nucleated RBC % (a uto) 0.2 % % Nucleated RBCs # 0.0 /100WBC /100W BC PT INR APTT Sodium 142 mmol/L mmol/L (136-145) Potassium 4.2 mmol/L mmol/L (3.5-5.1) Chloride 106 mmol/L mmol/L (98-107) Carbon Dioxide 19 mmol/L L mmol/ L (22-29) Anion Gap 21.2 H (5-19) BUN 24 mg/dL H mg/dL (8-23) Creatinine 3.5 mg/dL H mg/dL (0.7-1.2) GFR Calculation 17.4 mL/min L mL/ min (90-130) Glucose 122 mg/dL H mg/dL (65-115) Calculated Osmolal ity 299 mOsm/kg H mOs m/kg (285-295) Calcium 9.2 mg/dL mg/dL (8.5-10.5) Total Bilirubin 0.4 mg/dL mg/dL (0.15-1.2) AST 20 U/L U/L (0-40) ALT 9 U/L U/L (0-41) Alkaline Phosphata se 193 IU/L H IU/L (40-130) Ammonia Creatine Kinase 231 U/L U/L (39-308) Total Protein 7.9 g/dL g/dL (6.6-8.7) Albumin 4.3 g/dL g/dL (3.5-5.2) Globulin 3.6 g/dL g/dL (1.3-4.6) Ethyl Alcohol < 10 mg/dL mg/dL (0-10) 04/24/21 04/24/21 07:31 07:31 WBC RBC Hgb Hct MCV MCH MCHC RDW Plt Count MPV Neut % (Auto) Lymph % (Auto) [place] % (Auto) Eos % (Auto) Baso % (Auto) Neut # (Auto) Lymph # (Auto) [place] # (Auto) Eos # (Auto) Baso # (Auto) Nucleated RBC % (a uto) Nucleated RBCs # PT 15.10 SECONDS H S ECONDS (12.1-14.9) INR 1.16 (0.8-1.2) APTT 33.4 SECONDS SECO NDS (23.9-36.7) Sodium Potassium Chloride Carbon Dioxide Anion Gap BUN Creatinine GFR Calculation Glucose Calculated Osmolal ity Calcium Total Bilirubin AST ALT Alkaline Phosphata se Ammonia 12 umol/L L umol/ L (16-60) Creatine Kinase Total Protein Albumin Globulin Ethyl Alcohol Discharge Plan Discharge Patient Disposition: Admitted As Inpatient Admit Provider: Jordan Quintero Clinical Impression: Acute on chronic kidney failure, Subdural hematoma, Alcohol abuse, Vomiting, Dehydration Condition: Stable Discharge Diet: Cardiac Discharge Activity: Increase activity as tolerated Coding Level of Care Code ED Retail Loan Originator Assistant for Jordanag Fwd Exam Comprehensive
--- NOTE | 2021-04-24 06:09 | ECG_ITS ---
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 Measurements Intervals Show Low Rate: 89 P: 53 CO: 173 QRS: 53 QRSD: 90 T: 44 QT: 344 QTc: 421 Interpretive Statements SINUS RHYTHM Compared to ECG 04/21/2021 07:56:56 No significant changes Electronically Signed On 04-24-2021 13:03:17 [employer] MEMBER by Josie Meyer M.D. [id number]
--- NOTE | 2021-04-24 06:16 | CTR_ITS ---
PROCEDURE INFORMATION: Exam: CT Head Without Contrast Exam date and time: 04/24/2021 6:16 AM Age: 70 years old Clinical indication: Injury or trauma; Fall; Blunt trauma (contusions or hematomas); Additional info: Fall with loc TECHNIQUE: Imaging protocol: Computed tomography of the head without contrast. Radiation optimization: All CT scans at this facility use at least one of these dose optimization techniques: automated exposure control; mA and/or kV adjustment per patient size (includes targeted exams where dose is matched to clinical indication); or iterative reconstruction. COMPARISON: CT head wo con* [id number] 04/15/2021 8:01 AM RADIATION DOSE METRICS: Total DLP (mGy-cm): 885.11 FINDINGS: Brain: There are stable frontal convexity hypodense subdural collections measuring up to 6 mm on the right and 9 mm on the left, compatible with chronic subdural hemorrhages, unchanged. There is no significant mass effect or shift of midline structures. Mild diffuse volume loss is within the range of normal for patient age. There are small vessel ischemic changes within the periventricular and subcortical white matter. Cerebral ventricles: There is no new or progressive hemorrhage. Paranasal sinuses: Visualized sinuses are unremarkable. No fluid levels. Mastoid air cells: Visualized mastoid air cells are well aerated. Bones/joints: Unremarkable. No acute fracture. Soft tissues: Unremarkable. CT/CT head wo con* [id number] IMPRESSION: Stable chronic frontal convexity subdural hemorrhages.
[2021-04-24 06:32] LABS: Basophils # 0.1 10^3/uL (0.0-0.1); Basophils % 1.1 %; Eosinophils % 0.2 %; Hematocrit 33.5 % (42.0-52.0); Hemoglobin 11.2 g/dL (11.7-16.6); Lymphocytes # 1.2 10^3/uL (0.8-4.8); Mean Corpuscular HGB Conc 33.4 g/dL (30.0-36.0); Mean Corpuscular Hemoglobin 30.7 pg (28.0-34.0); Mean Corpuscular Volume 91.8 fl (80-94); Mean Platelet Volume 9.8 fL (7.4-10.4); Monocytes # 0.5 10^3/uL (0.2-0.9); Monocytes % 5.6 %; Neutrophils # 7.51 10^3/uL (1.8-7.7); Neutrophils % 79.8 %; Nucleated Red Blood Cells % 0.2 %; Platelet Count 345 10^3/cmm (130-400); Red Blood Count 3.65 10^6/uL (4.1-5.3); White Blood Count 9.4 10^3/uL (4.0-10.0)
[2021-04-24] MEDS: ondansetron 2 mg/ML SDV 2 mL 4 MG IVP (06:39)
[2021-04-24] MEDS: LORazepam 2 mg/mL INJ 1 mL IVP (06:40)
[2021-04-24 06:49] LABS: Alanine Aminotransferase 9 U/L (0-41); Albumin Level 4.3 g/dL (3.5-5.2); Alkaline Phosphatase 193 IU/L (40-130); Anion Gap 21.2 (5-19); Aspartate Amino Transferase 20 U/L (0-40); Blood Urea Nitrogen 24 mg/dL (8-23); Calcium 9.2 mg/dL (8.5-10.5); Carbon Dioxide 19 mmol/L (22-29); Chloride 106 mmol/L (98-107); Creatine Phosphokinase 231 U/L (39-308); Globulin 3.6 g/dL (1.3-4.6); Glomerular Filtration Rate 17.4 mL/min (90-130); Glucose 122 mg/dL (65-115); Osmolality Calculated 299 mOsm/kg (285-295); Potassium 4.2 mmol/L (3.5-5.1); Sodium 142 mmol/L (136-145); Total Bilirubin 0.4 mg/dL (0.15-1.2); Total Protein 7.9 g/dL (6.6-8.7)
[2021-04-24] MEDS: folic acid 1 MG, multivitamin inj 10 ML, thiamine 100 MG in sodium chloride 0.9% 1,000 ML 252.8 MG IV (07:23)
[2021-04-24 07:50] LABS: Alcohol Level < 10 mg/dL (0-10)
[2021-04-24 08:00] LABS: Ammonia 12 umol/L (16-60); INR 1.16 (0.8-1.2)
[2021-04-24 08:02] LABS: Partial Thromboplastin Time 33.4 SECONDS (23.9-36.7)
--- NOTE | 2021-04-24 08:40 | P.HP_ITS ---
Providers/Chief Complaint Chief Complaint: shacking, throwing up History of Present Illness Rubin Donnelly is a 70 year old male who presented to the ER with chief complaint of headache that started earlier today with associated nausea and vomiting. PMH is significant for alcohol abuse and chronic subdural hematoma. When speaking to him in the ER, he states that his headache feels a bit better than when it first began. He describes the headache as a throbbing sensation on his bilateral frontal lobe that comes and goes with pain scale of 7/10. Head CT performed in ER showed stable chronic frontal convexity subdural hemorrhages largely unchanged from head CT performed on 04/15/21. Subdural hemorrhages were first discovered on head CT on 03/26/21 after he fell down outside. He also endorses floating spots in his vision, especially when he goes down the stairs and still present when he wears his glasses. He reports he has been using some ibuprofen for the pain. He reports he has been urinating normally. He denies any fever or cough. Overall he feels weak. Patient states he last drank alcohol last week. Today in the ER his alcohol level was <10 and his creatinine was 3.5. Review of Systems Const: Denies: fever(s) or chills Eyes: Reports: floaters ENMT: Denies: throat pain Card: Denies: chest pain Resp: Denies: dyspnea GI: Reports: nausea and vomiting; Denies: hematochezia : Denies: hematuria Musc: Denies: back pain Skin/Breast: Denies: rash Neuro: Reports: headache(s) Psych: Denies: memory loss Endo: Denies: polyuria J Carlos/Lymph: Denies: easy bruising All/Imm: Denies: urticaria Medications/Allergies Home Medications Medication Instructions Recorded Confirmed Last Taken Type folic acid 1 mg tablet 1 mg PO DAILY tab 04/26/19 04/24/21 04/23/21 History lisinopril 10 mg tablet 10 mg PO DAILY tab 04/26/19 04/24/21 04/23/21 History methotrexate sodium 2.5 mg tablet 2.5 mg PO .COMPLEX 04/26/19 04/24/21 04/14/21 History diclofenac sodium 1 % topical gel 2 g TOPICAL QID #100 g 06/15/20 04/24/21 Unknown Rx escitalopram oxalate [Lexapro] 10 mg PO DAILY 04/15/21 04/24/21 04/23/21 History amlodipine 10 mg PO DAILY #30 tab 04/16/21 04/24/21 04/23/21 Rx pantoprazole 40 mg PO DAILY #30 tab 04/16/21 04/24/21 04/23/21 Rx quetiapine 25 mg PO BEDTIME #0 tab 04/16/21 04/24/21 04/23/21 Rx chlordiazepoxide HCl 10 mg PO Q8H #15 cap 04/21/21 04/24/21 04/23/21 Rx Allergies Allergy/AdvReac Type Severity Reaction Status Date / Time No Known Allergies Allergy Verified 04/24/21 05:50 PFSH Acute PFSH: Medical History (Updated 04/24/21 @ 15:16 by Jordan Quintero MD) Alcohol abuse Arthritis Chronic low back pain Hypertension Long-term use of high-risk medication Continue to monitor use Seropositive rheumatoid arthritis Subdural hematoma Tobacco abuse counselled to quit smoking Surgical History History of appendectomy History of spinal surgery 25 years ago l4/5 fusion per pt Family History Father Stroke Other Hypertension Social History Smoking and tobacco status: current some day smoker cigarettes [ Other cigarette details: 1 PK WEEK ] Alcohol intake: former Desire information about substance/drug rehabilitation?: No Vitals/I&O/Wt Last Vital Signs Temp 98.8 F 04/24/21 05:46 Pulse 109 H 04/24/21 07:35 Resp 18 04/24/21 07:35 BP 180/81 04/24/21 07:35 Pulse Ox 100 04/24/21 07:35 Weight last 48 hrs Weight 56.699 kg Physical Exam Const: COMMON NORMALS: no acute distress OTHER: sleepy, pleasant HENMT: COMMON NORMALS: normocephalic Eye: COMMON NORMALS: EOMs intact bilaterally Neck/C-Spine: COMMON NORMALS: supple Resp: COMMON NORMALS: clear to auscultation bilaterally AUSCULTATION: no rhonchi and no wheezes Cardio: COMMON NORMALS: regular rhythm and Peripheral pulses 2+ throughout OTHER: increased rate GI: COMMON NORMALS: Soft to palpation and non-tender Extremity: COMMON NORMALS: no pedal edema Neuro: COMMON NORMALS: moves all extremities SPEECH: speech normal Psych: COMMON NORMALS: cooperative SPEECH: Yes soft THOUGHT PROCESS: Normal thought process present THOUGHT CONTENT: Yes Normal thought content present Skin: COMMON NORMALS: no rashes or lesions noted Data : 04/24/21 06:15 04/24/21 06:15 Other data: INR 1.16 LFTs normal with exception of alk phos of 193 Ammonia 12 CPK 231 Alcohol level less than 10 CT head subdural hematomas, unchanged from previous imaging EKG demonstrates sinus rhythm, normal axis, no acute changes A&P Assessment and plan (1) Acute kidney injury superimposed on CKD: Significant worsening of chronic renal failure. This could be secondary to poor oral intake which he admits to recently, versus complications of anti- inflammatory intake. Will need to rule out obstruction. Recent renal ultraso und done April 16 did not suggest this but emergency department will do a bladder scan. I discussed this with the nurse in the emergency department and he urinated several 100 cc, but on bladder scan had over 300 left in his bladder. A Evangelista was ordered. We will start him on Flomax. CK is normal Hydrate Recheck creatinine tomorrow Hold lisinopril Check urinalysis Status: Acute (2) Dehydration: Hydration Status: Acute (3) Alcohol abuse: Avoid alcohol. Patient reports his last alcohol intake was 7 days previously. Thiamine, folate Still monitor for withdrawal Status: Acute (4) Subdural hematoma: Fall precautions Avoid antiplatelet and anticoagulation currently Status: Acute Additional A&P Information History of rheumatoid arthritis. It looks like from his last rheumatology note he is to stop his methotrexate if he is drinking alcohol. Full code SCDs for DVT prophylaxis. Secondary to recent history of subdurals I would like to try to avoid anticoagulation if possible. May need placement considering his overall care. He appears unkempt, and weak. Will check physical therapy and Occupational Therapy consultations to see if his functional status. He did have subdural hematomas diagnosed around March 26 for which he reports increased confusion, chronic headaches. Attestations Medical Necessity Statement*: Will need less than 1 midnight stay for evaluation and treatment of acute on chronic kidney failure Time Spent in Patient Care: Greater than 35 minutes Coding Level of Care Code Acute Manager Apple for Chg Fwd Diagnoses Acute kidney injury superimposed on CKD N17.9; N18.9 Dehydration E86.0 Alcohol abuse F10.10 Subdural hematoma S06.5X9A
[2021-04-24] MEDS: amlodipine 10 mg Tablet PO (08:44)
--- NOTE | 2021-04-24 09:01 | PC.SOCIAL ---
feature writer over to discuss alf options with patient. pt declines wanting to go to a alf. pt reports he wants to go home. pt states he has a , she is currently in [place] but is returning home soon. No questions voiced by patient. Warm blankets provided for comfort.
--- NOTE | 2021-04-24 12:32 | PC.NURSE ---
PATIENT VOIDED 250 ML PRIOR TO BLADDER SCANNER. BLADDER SCANNER 321 ML REMAINING.
[2021-04-24 17:40] LABS: Bilirubin Urine Neg (Negative); Blood Urine Neg (Negative); Glucose Urine UA Norm (Normal); Ketones Urine 1+ (Negative); Leukocyte Esterase Urine Negative (Negative); Nitrate Urine Negative (Negative); Protein Urine Neg (Negative); Specific Gravity, Urine 1.005 (1.005-1.030); Squamous Epithelial Cell Urine RARE /hpf (0-5); Urine Appearance Clear (CLEAR); Urine Color Yellow (Yellow); Urobilinogen Urine Norm (Negative); pH Urine 5 (5-7)
[2021-04-24] MEDS: sodium chloride 0.9% 1,000 ML 100 ML IV (18:53)
--- NOTE | 2021-04-24 19:23 | PC.NURSE ---
Shift report receivied from Iris LEWIS. Patient in bed/awake. IV patent/infusing NS at 100mL/hr. Evangelista patent draining clear yellow urine. No needs voiced at this time.
[2021-04-24] MEDS: tamsulosin 0.4 mg Capsule PO (22:21)
--- NOTE | 2021-04-24 23:59 | PC.NURSE ---
i reported high pulse 101 to nurse
[2021-04-25] MEDS: ondansetron 2 mg/ML SDV 2 mL 4 MG IVP (00:39)
[2021-04-25 02:40] LABS: Basophils # 0.1 10^3/uL (0.0-0.1); Basophils % 1.1 %; Eosinophils # 0.1 10^3/uL (0.0-0.8); Hematocrit 32.4 % (42.0-52.0); Hemoglobin 10.2 g/dL (11.7-16.6); Lymphocytes # 1.4 10^3/uL (0.8-4.8); Lymphocytes % 14.9 %; Mean Corpuscular HGB Conc 31.5 g/dL (30.0-36.0); Mean Corpuscular Hemoglobin 30.4 pg (28.0-34.0); Mean Corpuscular Volume 96.7 fl (80-94); Mean Platelet Volume 10.1 fL (7.4-10.4); Monocytes # 0.5 10^3/uL (0.2-0.9); Monocytes % 5.6 %; Neutrophils # 7.17 10^3/uL (1.8-7.7); Neutrophils % 77.1 %; Nucleated Red Blood Cells % 0 %; Platelet Count 253 10^3/cmm (130-400); Red Blood Count 3.35 10^6/uL (4.1-5.3); Red Cell Distribution Width 20.6 % (12.1-15.1); White Blood Count 9.3 10^3/uL (4.0-10.0)
[2021-04-25 03:01] LABS: Alanine Aminotransferase 8 U/L (0-41); Albumin Level 3.7 g/dL (3.5-5.2); Alkaline Phosphatase 157 IU/L (40-130); Anion Gap 16.9 (5-19); Aspartate Amino Transferase 20 U/L (0-40); Blood Urea Nitrogen 16 mg/dL (8-23); Calcium 8.7 mg/dL (8.5-10.5); Carbon Dioxide 19 mmol/L (22-29); Chloride 110 mmol/L (98-107); Globulin 2.8 g/dL (1.3-4.6); Glomerular Filtration Rate 26.9 mL/min (90-130); Glucose 101 mg/dL (65-115); Magnesium 1.9 mg/dL (1.7-2.3); Osmolality Calculated 295 mOsm/kg (285-295); Potassium 3.9 mmol/L (3.5-5.1); Sodium 142 mmol/L (136-145); Total Bilirubin 0.5 mg/dL (0.15-1.2); Total Protein 6.5 g/dL (6.6-8.7)
[2021-04-25 04:00] VITALS: BP 144/76; PULSE 66; RESP 18; TEMP 36.6; O2SAT 98
[2021-04-25] MEDS: sodium chloride 0.9% 1,000 ML 100 ML IV (04:16)
--- NOTE | 2021-04-25 07:10 | PC.NURSE ---
Patient has c/o of nausea/shakiness this shift. Had dry heaves even with administration of PRN medication and sprite. Patient c/o of headache at shift change. No other needs voiced at this time.
[2021-04-25 07:40] VITALS: BP 144/75; PULSE 108; RESP 20; TEMP 37; O2SAT 97
[2021-04-25] MEDS: acetaminophen 325 mg Tablet 650 MG PO (08:33)
[2021-04-25] MEDS: amlodipine 10 mg Tablet PO (08:33)
[2021-04-25] MEDS: thiamine 100 mg Tablet PO (08:33)
[2021-04-25] MEDS: escitalopram 10 mg Tablet PO (08:33)
[2021-04-25] MEDS: folic acid 1 mg Tablet PO (08:34)
[2021-04-25] MEDS: pantoprazole DR 40 mg Tablet PO (08:34)
--- NOTE | 2021-04-25 10:30 | PC.CHAP ---
Pastoral Care Encounter/Spiritual Assessment Type of Contact [] Declined mold shop supervisor visit [] Patient/Family/Request visit [] Outpatient visit [] Follow-up visit [] Physician referral [] Code/Alert [x] Routine visit [] Staff referral [] Actively dying [] Patient sleeping [] Family support [] [] Out of room [] Palliative care [] [] Receiving care in room [] Pre-surgical visit [] Trauma [] Long length of stay [] ICU visit [] Other: Relational/Emotional Strength [x] Patient feels connected with others/family/visitors/staff [x] Distress [] Loneliness/isolation [] Abandonment Spirituality of Patient [x] Person of Laurie [] Attends Buddhist of their Laurie [x] Believes in Prayer [] Reads Bible or Shinto materials [] There are Spiritual issues to be addressed Experimental Assembler Interventions [x] Prayer [x] Active listening [] Non-anxious presence [] Spiritual/emotional support [] Crisis/trauma care [] Spiritual counseling [] Bereavement support [] Provided bereavement packet [] Provided Bible/devotional materials [] Provided toy/stuffed animal, coloring book to patient or family member [] Provided Communion [] Anointing/[place] [] Salvation [x] Completed spiritual assessment [] Other: Impact on Illness or Injury [] Angry [] Fearful [] Anxious [] Often cries [] Exhaustion [] Unable to work [] Unable to attend scientology [] Unable to walk/stand [] Unable to read [] Unable to drive [] Unable to eat/drink [] Unable to sleep [] Unable to be with family [] Patient intubated [] Other: Summary Time spent with patient 10 min
--- NOTE | 2021-04-25 11:55 | P.DS_ITS ---
Discharge Providers Date of Admission: 04/24/21 12:07 Date of Discharge: April 25, 2021 Attending Provider at Admission: Jordan Quintero MD Attending Provider at Discharge: Jordan Quintero MD Diagnoses at Discharge Discharge Diagnosis (1) Acute kidney injury superimposed on CKD: Status: Acute (2) Dehydration: Status: Acute (3) Alcohol abuse: Status: Acute (4) Subdural hematoma: Status: Acute Reason for Visit Reason for Visit: shacking, throwing up Hospital Course Hospital Course Rubin is a 70-year-old male with history of alcoholism who presented to the emergency department feeling weak, and with a headache. He had had no recent fevers. On laboratory it was found that he had acute kidney injury. He has history of subdural hematomas on March 26, for which his headaches have been attributed to. He reports he has had daily headaches since then. He has been using some ibuprofen. He reported he stopped drinking alcohol about 7 days ago. During the course of his hospital stay he was rehydrated. A Evangelista was placed, although patient did not have a tremendous amount of urinary retention. After he had urinated 200 cc in the ER he still had a residual of around 300 cc. He had a recent renal ultrasound demonstrating no obstruction. CT head demonstrated no increase in size of his chronic subdurals. After rehydration his renal function improved significantly. He was able to ambulate. He still had some headache. We discussed that this should be treated with Tylenol and no anti-inflammatories considering his renal disease. Nursing facility placement was offered which he refused. He will be discharged today. He was encouraged not to drink any alcohol. Low-dose Neurontin was added for his chronic headaches, and since his lisinopril was discontinued in the hospital for renal function worsening low-dose metoprolol was added. Physical Exam Narrative: EXAM NARRATIVE: General exam no distress Neck is supple Cardiovascular regular in rhythm without murmur Lungs clear Abdomen is soft with positive bowel sounds Extremities no cyanosis clubbing or edema Neuro no focal deficits. Urinary Catheter Management^: Evangelista: Cath Placed During This Visit: yes Reason for Continuing Indwelling Catheter: Acute Urinary Retention or Obstruction Urinary Catheter Date of Insertion: 04/24/21 Urinary Catheter Time of Insertion: 13:10 Discharge Data Data Completed and Pending: Completed Studies During Hospitalization Category Date Time Status CT head wo con* [id number] Stat Cat Scan 04/24/21 06:16 Completed Labs from last 24 hours 04/25/21 04/25/21 04/24/21 02:22 02:22 16:00 WBC 9.3 RBC 3.35 L Hgb 10.2 L Hct 32.4 L MCV 96.7 H D MCH 30.4 MCHC 31.5 D RDW 20.6 H Plt Count 253 MPV 10.1 Neut % (Auto) 77.1 Lymph % (Auto) 14.9 [place] % (Auto) 5.6 Eos % (Auto) 1.0 Baso % (Auto) 1.1 Neut # (Auto) 7.17 Lymph # (Auto) 1.4 [place] # (Auto) 0.5 Eos # (Auto) 0.1 Baso # (Auto) 0.1 Nucleated RBC % (a uto) 0 Nucleated RBCs # 0.0 Sodium 142 Potassium 3.9 Chloride 110 H Carbon Dioxide 19 L Anion Gap 16.9 BUN 16 Creatinine 2.4 H GFR Calculation 26.9 L Glucose 101 Calculated Osmolal ity 295 Calcium 8.7 Magnesium 1.9 Total Bilirubin 0.5 AST 20 ALT 8 Alkaline Phosphata se 157 H Total Protein 6.5 L Albumin 3.7 Globulin 2.8 Urine Color Yellow Urine Appearance Clear Urine pH 5 Ur Specific Gravit y 1.005 Urine Protein Neg Urine Glucose (UA) Norm Urine Ketones 1+ H Urine Blood Neg Urine Nitrate Negative Urine Bilirubin Neg Urine Urobilinogen Norm Ur Leukocyte Brittny ase Negative Urine RBC None Urine WBC None Ur Squamous Epith Cells Rare Amorphous Sediment Not Reportable Urine Bacteria None Vitals: Last Vital Signs Temp 98.6 F 04/25/21 07:40 Pulse 108 H 04/25/21 07:40 Resp 20 H 04/25/21 07:40 BP 144/75 04/25/21 07:40 Pulse Ox 97 04/25/21 07:40 Discharge Plan Discharge Patient Disposition: Home Condition: Stable Prescriptions: New tamsulosin 0.4 mg Capsule 0.4 mg PO BEDTIME Qty: 30 RF: 0 gabapentin 100 mg Capsule 100 mg PO BID Qty: 60 RF: 0 metoprolol tartrate 25 mg tablet 25 mg PO DAILY Qty: 30 RF: 0 Continued diclofenac sodium [Voltaren Arthritis Pain] 1 % gel 2 g topical QID Qty: 100 RF: 2 folic acid 1 mg tablet 1 mg PO DAILY RF: 0 escitalopram oxalate [Lexapro] 10 mg Tablet 10 mg PO DAILY RF: 0 pantoprazole 40 mg Tablet,Delayed Release (Dr/Ec) 40 mg PO DAILY Qty: 30 RF: 0 amlodipine 10 mg tablet 10 mg PO DAILY Qty: 30 RF: 0 Discontinued methotrexate sodium 2.5 mg tablet 2.5 mg PO .COMPLEX RF: 0 lisinopril 10 mg tablet 10 mg PO DAILY RF: 0 quetiapine 50 mg tablet 25 mg PO BEDTIME Qty: 0 RF: 0 chlordiazepoxide HCl 10 mg capsule 10 mg PO Q8H Qty: 15 RF: 0 Discharge Orders: Discharge Order (Routine); Ordered 04/25/21 Ordered By: Jordan Quintero Referrals: Loni Che PA [Staff Physician] - 05/01/21 11:15 am Discharge Diet: Cardiac Discharge Activity: Increase activity as tolerated Patient Instructions: Metoprolol (By mouth), Gabapentin (By mouth), Tamsulosin (By mouth), Hematoma (ED), Opioid Safety Activity Restrictions/Additional Instructions: No alcohol Follow-up with your primary care provider Take all medicine as prescribed Return for any concerns Do not discharge until it is ensured the patient can urinate following catheter removal. Discharge Attestations Time Spent in Discharge Care*: greater than 30 min Status at Discharge: Cognitive status at discharge: cognitively intact , Behavioral status at discharge: cooperative , Quality Metrics Clinical Quality Measures During this hospital stay, did patient experience: None Coding Level of Care Code Acute Chg FW DC note Diagnoses Acute kidney injury superimposed on CKD N17.9; N18.9 Dehydration E86.0 Alcohol abuse F10.10 Subdural hematoma S06.5X9A
[2021-04-25 12:00] VITALS: BP 136/70; PULSE 92; RESP 16; TEMP 36.6; O2SAT 97
[2021-04-25 12:19] VITALS: BP 144/75; PULSE 99; RESP 18; TEMP 37; O2SAT 97
== END 2021-04-25 12:45 | disposition home or self-care (01) ==
LOC: ER 14:34 → MEDSURG 15:26
PROVIDERS: Admitting Provider Internal Medicine; Emergency Provider Family Medicine; Visit Provider Internal Medicine
DX: N17.9 Acute kidney failure, unspecified (principal); N18.9 Chronic kidney disease, unspecified; E86.0 Dehydration; F10.10 Alcohol abuse, uncomplicated; S06.5X9A Traumatic subdural hemorrhage with loss of consciousness of unspecified duration, initial encounter; X58.XXXA Exposure to other specified factors, initial encounter; I10 Essential (primary) hypertension; F17.210 Nicotine dependence, cigarettes, uncomplicated
CPT/HCPCS: 36415; 51702; 51798; 70450; 80053; 80307; 81001; 82140; 82550; 83735; 85025; 85610; 85730; 93005; 96361; 96374; 96375; 96376; 99285; G0378; J2060; J2405; J3411; J3490; J7030

== ENCOUNTER 2021-04-25 21:13 | Emergency (ER) | payer MEDICARE, MEDICAID, SELFPAY ==
[2021-04-25 21:17] VITALS: BP 158/71; PULSE 95; RESP 22; TEMP 36.7; O2SAT 100; BMI 27.4
--- NOTE | 2021-04-25 22:17 | PC.NURSE ---
patient states nausea with abdominal pain for weeks. states headache that is worse than normal.
--- NOTE | 2021-04-25 22:24 | ED_ITS ---
HPI - Nausea/Vomiting/Diarrhea General: Chief complaint: Nausea/Vomiting/Diarrhea Stated complaint: GENERAL Time Seen by Provider: 04/25/21 21:43 Source: patient and EMS Mode of arrival: EMS Limitations: no limitations History of Present Illness: HPI Narrative: 70-year-old male who is very well- known to the ER has been here multiple times has a long history of alcoholism. He states that today has been having some nausea vomiting he felt like he may be having withdrawals. He has had no seizures he is not tachycardic here no tremors. States that he is vomited twice at home denies any diarrhea denies any pain currently. Associated nausea: Yes Associated symtoms: Reports nausea; Denies chest pain, dysuria or headache(s) Review of Systems Const: Denies: fever(s), chills, body aches or change in appetite Eyes: Denies: blurry vision or eye discomfort ENMT: Denies: throat pain or dental pain Card: Denies: chest pain Resp: Denies: dyspnea GI: Reports: nausea and vomiting : Denies: dysuria Musc: Denies: neck pain or back pain Skin/Breast: Denies: rash Neuro: Denies: headache(s) Psych: Denies: depression J Carlos/Lymph: Denies: easy bruising All/Imm: Denies: urticaria PFSH ED PFSH: Medical History Alcohol abuse Arthritis Chronic low back pain Hypertension Long-term use of high-risk medication Continue to monitor use Seropositive rheumatoid arthritis Subdural hematoma Tobacco abuse counselled to quit smoking Surgical History History of appendectomy History of spinal surgery 25 years ago l4/5 fusion per pt Family History Father Stroke Other Hypertension Social History Smoking and tobacco status: current some day smoker cigarettes [ Other cigarette details: 1 PK WEEK ] Alcohol intake: former Desire information about substance/drug rehabilitation?: No Physical Exam Const: COMMON NORMALS: no acute distress and patient oriented x3 GENERAL APPEARANCE: disheveled HENMT: COMMON NORMALS: normocephalic and atraumatic HEAD & SCALP: normocephalic and atraumatic Eye: COMMON NORMALS: Equal, round and reactive pupils present and EOMs intact bilaterally PUPIL: Yes Equal, round and reactive pupils present Neck/C-Spine: COMMON NORMALS: full ROM and supple Chest: COMMONS NORMALS: normal inspection of the chest and normal palpation of entire chest wall Resp: COMMON NORMALS: normal respiratory effort, No retractions, No use of accessory muscles and clear to auscultation bilaterally AUSCULTATION: clear to auscultation bilaterally Cardio: COMMON NORMALS: regular rate, regular rhythm and No murmurs present (Cardio) RATE: regular rate RHYTHM: regular rhythm GI: COMMON NORMALS: Normal to inspection, nondistended, normoactive bowel sounds present, Soft to palpation, non-tender and no masses PALPATION: Yes Soft to palpation Extremity: COMMON NORMALS: normal to inspection and full ROM Neuro: COMMON NORMALS: patient oriented x3, moves all extremities and no focal motor deficits Psych: COMMON NORMALS: mental status grossly normal, Normal thought process present and cooperative THOUGHT PROCESS: Normal thought process present Skin: COMMON NORMALS: no rashes or lesions noted and no wounds GENERAL SKIN EXAM: no rashes or lesions noted Course Vital Signs: Vital signs: Vital Signs Temperature 98.4 F 04/25/21 23:45 Pulse Rate 74 04/25/21 23:45 Respiratory Rate 18 04/25/21 23:45 Blood Pressure 137/74 04/25/21 23:45 Pulse Oximetry 97 04/25/21 23:45 MDM - Nausea/Vomiting/Diarrhea MDM Narrative: Medical decision making narrative: Patient presents here with vomiting he has no tremor here no tachycardia no signs of active withdrawals he is hypertensive but he states he is not been taking his blood pressure medicine his blood pressure has improved after labetalol. Patient's kidney function here is improved as well from his previous admission. We will give him nausea meds he is stable for discharge return if worsening. Lab Data: Labs: Lab Results 04/25/21 04/25/21 22:30 22:30 WBC 10.5 10^3/uL H 10 ^3/uL (4.0-10.0) RBC 3.51 10^6/uL L 10 ^6/uL (4.1-5.3) Hgb 10.8 g/dL L g/dL (11.7-16.6) Hct 33.9 % L % (42.0-52.0) MCV 96.6 fl H fl (80-94) MCH 30.8 pg pg (28.0-34.0) MCHC 31.9 g/dL g/dL (30.0-36.0) RDW 21.3 % H % (12.1-15.1) Plt Count 234 10^3/cmm 10^3 /cmm (130-400) MPV 10.4 fL fL (7.4-10.4) Neut % (Auto) 78.9 % % Lymph % (Auto) 13.3 % % [place] % (Auto) 4.8 % % Eos % (Auto) 1.8 % % Baso % (Auto) 0.8 % % Neut # (Auto) 8.29 10^3/uL H 10 ^3/uL (1.8-7.7) Lymph # (Auto) 1.4 10^3/uL 10^3/ uL (0.8-4.8) [place] # (Auto) 0.5 10^3/uL 10^3/ uL (0.2-0.9) Eos # (Auto) 0.2 10^3/uL 10^3/ uL (0.0-0.8) Baso # (Auto) 0.1 10^3/uL 10^3/ uL (0.0-0.1) Nucleated RBC % (a uto) 0 % % Nucleated RBCs # 0.0 /100WBC /100W BC Sodium 140 mmol/L mmol/L (136-145) Potassium 4.9 mmol/L mmol/L (3.5-5.1) Chloride 105 mmol/L mmol/L (98-107) Carbon Dioxide 19 mmol/L L mmol/ L (22-29) Anion Gap 20.9 H (5-19) BUN 14 mg/dL mg/dL (8-23) Creatinine 2.1 mg/dL H mg/dL (0.7-1.2) GFR Calculation 31.4 mL/min L mL/ min (90-130) Glucose 98 mg/dL mg/dL (65-115) Calculated Osmolal ity 290 mOsm/kg mOsm/ kg (285-295) Calcium 8.8 mg/dL mg/dL (8.5-10.5) Total Bilirubin 0.6 mg/dL mg/dL (0.15-1.2) AST 23 U/L U/L (0-40) ALT 10 U/L U/L (0-41) Alkaline Phosphata se 176 IU/L H IU/L (40-130) Total Protein 7.0 g/dL g/dL (6.6-8.7) Albumin 4.3 g/dL g/dL (3.5-5.2) Globulin 2.7 g/dL g/dL (1.3-4.6) Lipase 248 U/L H U/L (13-60) Ethyl Alcohol < 10 mg/dL mg/dL (0-10) Discharge Plan Discharge Patient Disposition: Home Clinical Impression: Vomiting Qualifiers: Vomiting type: unspecified Nausea presence: with nausea Qualified Code(s): R11.2 - Nausea with vomiting, unspecified Condition: Stable Prescriptions: New ondansetron 4 mg tablet,disintegrating 4 mg PO Q6H PRN (Reason: nausea and vomiting) Qty: 14 RF: 0 chlordiazepoxide HCl 10 mg capsule 10 mg PO Q6H PRN (Reason: withdrawal symptoms) Qty: 20 RF: 0 No Action diclofenac sodium [Voltaren Arthritis Pain] 1 % gel 2 g topical QID Qty: 100 RF: 2 folic acid 1 mg tablet 1 mg PO DAILY RF: 0 escitalopram oxalate [Lexapro] 10 mg Tablet 10 mg PO DAILY RF: 0 pantoprazole 40 mg Tablet,Delayed Release (Dr/Ec) 40 mg PO DAILY Qty: 30 RF: 0 amlodipine 10 mg tablet 10 mg PO DAILY Qty: 30 RF: 0 tamsulosin 0.4 mg Capsule 0.4 mg PO BEDTIME Qty: 30 RF: 0 gabapentin 100 mg Capsule 100 mg PO BID Qty: 60 RF: 0 metoprolol tartrate 25 mg tablet 25 mg PO DAILY Qty: 30 RF: 0 Discharge Orders: Discharge ED (Routine); Ordered 04/25/21 Ordered By: Beatrice Gu Discharge Diet: Advance as tolerated Discharge Activity: Resume usual activity Patient Instructions: Acute Nausea and Vomiting (ED) Coding Level of Care Code ED Bricklayer'S Assistant for g Fwd Exam Comprehensive
[2021-04-25] MEDS: ondansetron 2 mg/ML SDV 2 mL 4 MG IVP (22:34)
[2021-04-25] MEDS: sodium chloride 0.9% 1,000 ML 999 ML IV (22:34)
[2021-04-25 22:36] LABS: Basophils # 0.1 10^3/uL (0.0-0.1); Basophils % 0.8 %; Eosinophils # 0.2 10^3/uL (0.0-0.8); Eosinophils % 1.8 %; Hematocrit 33.9 % (42.0-52.0); Hemoglobin 10.8 g/dL (11.7-16.6); Lymphocytes # 1.4 10^3/uL (0.8-4.8); Lymphocytes % 13.3 %; Mean Corpuscular HGB Conc 31.9 g/dL (30.0-36.0); Mean Corpuscular Hemoglobin 30.8 pg (28.0-34.0); Mean Corpuscular Volume 96.6 fl (80-94); Mean Platelet Volume 10.4 fL (7.4-10.4); Monocytes # 0.5 10^3/uL (0.2-0.9); Monocytes % 4.8 %; Neutrophils # 8.29 10^3/uL (1.8-7.7); Neutrophils % 78.9 %; Nucleated Red Blood Cells % 0 %; Platelet Count 234 10^3/cmm (130-400); Red Blood Count 3.51 10^6/uL (4.1-5.3); Red Cell Distribution Width 21.3 % (12.1-15.1); White Blood Count 10.5 10^3/uL (4.0-10.0)
[2021-04-25 22:57] LABS: Alanine Aminotransferase 10 U/L (0-41); Albumin Level 4.3 g/dL (3.5-5.2); Alkaline Phosphatase 176 IU/L (40-130); Anion Gap 20.9 (5-19); Aspartate Amino Transferase 23 U/L (0-40); Blood Urea Nitrogen 14 mg/dL (8-23); Calcium 8.8 mg/dL (8.5-10.5); Carbon Dioxide 19 mmol/L (22-29); Chloride 105 mmol/L (98-107); Globulin 2.7 g/dL (1.3-4.6); Glomerular Filtration Rate 31.4 mL/min (90-130); Glucose 98 mg/dL (65-115); Lipase 248 U/L (13-60); Osmolality Calculated 290 mOsm/kg (285-295); Potassium 4.9 mmol/L (3.5-5.1); Sodium 140 mmol/L (136-145); Total Bilirubin 0.6 mg/dL (0.15-1.2)
[2021-04-25 22:58] LABS: Alcohol Level < 10 mg/dL (0-10)
[2021-04-25] MEDS: labetalol 5 mg/mL SDV 20mL 10 MG IVP (23:13)
[2021-04-25] MEDS: LORazepam 2 mg/mL INJ 1 mL IVP (23:14)
[2021-04-25 23:16] VITALS: BP 160/83; PULSE 82; RESP 18; TEMP 36.8; O2SAT 100
--- NOTE | 2021-04-25 23:18 | PC.NURSE ---
verified with provider to give labetolol with current BP.
[2021-04-25 23:45] VITALS: BP 137/74; PULSE 74; RESP 18; TEMP 36.9; O2SAT 97
== END 2021-04-25 23:54 | disposition home or self-care (01) ==
PROVIDERS: Emergency Provider Emergency Medicine
DX: R11.2 Nausea with vomiting, unspecified (principal); I10 Essential (primary) hypertension; F17.210 Nicotine dependence, cigarettes, uncomplicated; F10.10 Alcohol abuse, uncomplicated
CPT/HCPCS: 80053; 80307; 83690; 85025; 96361; 96374; 96375; 99284; 99291; 99292; J2060; J2405; J3490; J7030

== ENCOUNTER 2021-04-27 03:18 | Emergency (ER) | payer MEDICARE, MEDICAID, SELFPAY ==
[2021-04-27 03:28] VITALS: BP 188/116; PULSE 98; RESP 20; TEMP 36.6; O2SAT 98; BMI 27.4
--- NOTE | 2021-04-27 03:30 | CTR_ITS ---
PROCEDURE INFORMATION: Exam: CT Head Without Contrast Exam date and time: 04/27/2021 3:30 AM Age: 70 years old Clinical indication: Pain; Headache; Patient HX: C/O PEARSON with n/v. Hypertensive on monitor. History of chronic subdural hemorrhage. TECHNIQUE: Imaging protocol: Computed tomography of the head without contrast. Radiation optimization: All CT scans at this facility use at least one of these dose optimization techniques: automated exposure control; mA and/or kV adjustment per patient size (includes targeted exams where dose is matched to clinical indication); or iterative reconstruction. COMPARISON: CT head wo con* [id number] 04/24/2021 6:28 AM RADIATION DOSE METRICS: Total DLP (mGy-cm): 734.62 FINDINGS: Brain: Stable appearance of left subdural hygroma, no high attenuation areas in the fluid to suggest acute hemorrhage. The smaller subdural hygroma in the right frontal region is also unchanged in size. As on the prior exam, there are few subtle areas of higher attenuation in this fluid, representing some recent hemorrhage. However this appearance has not changed, and there is no definite new hemorrhage in the interval. No new/acute intracranial hemorrhage or midline shift. There is decreased attenuation in the periventricular white matter, likely from microvascular disease. There are old lacunar infarcts in the basal ganglia/internal capsule regions bilaterally. No definite acute infarct by CT. MRI could be more sensitive/specific for detection, as clinically directed. Cerebral ventricles: Ventricle size is normal for age. Paranasal sinuses: Included paranasal sinuses are essentially clear. Mastoid air cells: No significant acute finding. Vasculature: Vascular calcifications in the internal carotid and vertebral basilar systems. Bones/joints: No definite acute skull fracture. CT/CT head wo con* [id number] IMPRESSION: 1. Stable low-attenuation left subdural hygroma. 2. Smaller mixed attenuation subdural hematoma in the right frontal region, also unchanged. 3. No new/acute intracranial hemorrhage or midline shift. 4. Changes of microvascular disease, and old lacunar infarcts. 5. No definite acute infarct by CT, see above. 6. Other findings discussed above.
--- NOTE | 2021-04-27 03:32 | W.ED.NAVMDI ---
HPI - Nausea/Vomiting/Diarrhea General: Chief complaint: Nausea/Vomiting/Diarrhea Stated complaint: n\v\ Time Seen by Provider: 04/27/21 03:30 Source: patient Mode of arrival: ambulatory Limitations: no limitations History of Present Illness: HPI Narrative: 70-year-old male very well-known to the ER states has been having nausea vomiting diarrhea along with a slight headache as well. States he was seen here yesterday states has been taking the Librium and Zofran with minimal improvement to the vomiting denies any abdominal pain denies any fever denies any chest pain. Associated nausea: Yes Associated symtoms: Reports headache(s) and nausea; Denies chest pain or dysuria Review of Systems Const: Denies: fever(s), chills, body aches or change in appetite Eyes: Denies: blurry vision or eye discomfort ENMT: Denies: throat pain or dental pain Card: Denies: chest pain Resp: Denies: dyspnea GI: Reports: nausea and vomiting : Denies: dysuria Musc: Denies: neck pain or back pain Skin/Breast: Denies: rash Neuro: Reports: headache(s) Psych: Denies: depression J Carlos/Lymph: Denies: easy bruising All/Imm: Denies: urticaria PFSH ED PFSH: Medical History Alcohol abuse Arthritis Chronic low back pain Hypertension Long-term use of high-risk medication Continue to monitor use Seropositive rheumatoid arthritis Subdural hematoma Tobacco abuse counselled to quit smoking Surgical History History of appendectomy History of spinal surgery 25 years ago l4/5 fusion per pt Family History Father Stroke Other Hypertension Social History Smoking and tobacco status: current some day smoker cigarettes [ Other cigarette details: 1 PK WEEK ] Alcohol intake: former Desire information about substance/drug rehabilitation?: No Physical Exam Const: COMMON NORMALS: no acute distress, patient oriented x3 and healthy appearing HENMT: COMMON NORMALS: normocephalic and atraumatic HEAD & SCALP: normocephalic and atraumatic Eye: COMMON NORMALS: Equal, round and reactive pupils present and EOMs intact bilaterally PUPIL: Yes Equal, round and reactive pupils present Neck/C-Spine: COMMON NORMALS: full ROM and supple Chest: COMMONS NORMALS: normal inspection of the chest and normal palpation of entire chest wall Resp: COMMON NORMALS: normal respiratory effort, No retractions, No use of accessory muscles and clear to auscultation bilaterally AUSCULTATION: clear to auscultation bilaterally Cardio: COMMON NORMALS: regular rate, regular rhythm and No murmurs present (Cardio) RATE: regular rate RHYTHM: regular rhythm GI: COMMON NORMALS: Normal to inspection, nondistended, normoactive bowel sounds present, Soft to palpation, non-tender and no masses PALPATION: Yes Soft to palpation Extremity: COMMON NORMALS: normal to inspection and full ROM Neuro: COMMON NORMALS: patient oriented x3, moves all extremities and no focal motor deficits Psych: COMMON NORMALS: mental status grossly normal, Normal thought process present and cooperative THOUGHT PROCESS: Normal thought process present Skin: COMMON NORMALS: no rashes or lesions noted and no wounds GENERAL SKIN EXAM: no rashes or lesions noted Course Vital Signs: Vital signs: Vital Signs Temperature 97.8 F 04/27/21 03:28 Pulse Rate 75 04/27/21 04:50 Respiratory Rate 20 H 04/27/21 04:50 Blood Pressure 150/79 04/27/21 04:50 Pulse Oximetry 98 04/27/21 04:50 MDM - Nausea/Vomiting/Diarrhea MDM Narrative: Medical decision making narrative: Patient presents with vomiting along with hypertension he has no signs of withdrawal as he has no tremor no seizure head CT here shows no acute findings patient's blood pressure here is improved he is to continue to take his Librium and Zofran he is stable for discharge and follow-up with PCP and return if worsening. Lab Data: Labs: Lab Results 04/27/21 04/27/21 03:46 03:46 WBC 9.9 10^3/uL 10^3/ uL (4.0-10.0) RBC 3.32 10^6/uL L 10 ^6/uL (4.1-5.3) Hgb 10.1 g/dL L g/dL (11.7-16.6) Hct 31.7 % L % (42.0-52.0) MCV 95.5 fl H fl (80-94) MCH 30.4 pg pg (28.0-34.0) MCHC 31.9 g/dL g/dL (30.0-36.0) RDW 19.8 % H % (12.1-15.1) Plt Count 197 10^3/cmm 10^3 /cmm (130-400) MPV 10.7 fL H fL (7.4-10.4) Neut % (Auto) 74.3 % % Lymph % (Auto) 16.3 % % [place] % (Auto) 5.9 % % Eos % (Auto) 2.8 % % Baso % (Auto) 0.4 % % Neut # (Auto) 7.36 10^3/uL 10^3 /uL (1.8-7.7) Lymph # (Auto) 1.6 10^3/uL 10^3/ uL (0.8-4.8) [place] # (Auto) 0.6 10^3/uL 10^3/ uL (0.2-0.9) Eos # (Auto) 0.3 10^3/uL 10^3/ uL (0.0-0.8) Baso # (Auto) 0.0 10^3/uL 10^3/ uL (0.0-0.1) Nucleated RBC % (a uto) 0 % % Nucleated RBCs # 0.0 /100WBC /100W BC Sodium 136 mmol/L mmol/L (136-145) Potassium 3.5 mmol/L mmol/L (3.5-5.1) Chloride 102 mmol/L mmol/L (98-107) Carbon Dioxide 19 mmol/L L mmol/ L (22-29) Anion Gap 18.5 (5-19) BUN 12 mg/dL mg/dL (8-23) Creatinine 1.8 mg/dL H mg/dL (0.7-1.2) GFR Calculation 37.5 mL/min L mL/ min (90-130) Glucose 123 mg/dL H mg/dL (65-115) Calculated Osmolal ity 283 mOsm/kg L mOs m/kg (285-295) Calcium 8.0 mg/dL L mg/dL (8.5-10.5) Total Bilirubin 0.4 mg/dL mg/dL (0.15-1.2) AST 16 U/L U/L (0-40) ALT 8 U/L U/L (0-41) Alkaline Phosphata se 149 IU/L H IU/L (40-130) Total Protein 6.7 g/dL g/dL (6.6-8.7) Albumin 3.8 g/dL g/dL (3.5-5.2) Globulin 2.9 g/dL g/dL (1.3-4.6) Ethyl Alcohol < 10 mg/dL mg/dL (0-10) Imaging Data^: CT Head: Attestation: I personally reviewed and interpreted this imaging study as follows: Radiologist's impression: Impression: 1. Stable low-attenuation left subdural hygroma. 2. Smaller mixed attenuation subdural hematoma in the right frontal region, also unchanged. 3. No new/acute intracranial hemorrhage or midline shift. 4. Changes of microvascular disease, and old lacunar infarcts. 5. No definite acute infarct by CT, see above. 6. Other findings discussed above. Dictated By: Vinny Souza MD Signed By: Vinny Souza MD Signed Date/Time: 04/27/21419 DD/ 9 EKG Data^: EKG 1: Attestation: I personally reviewed and interpreted this EKG as follows: EKG interpretation date: 04/27/21 EKG interpretation time: 04:00 Interpretation: nsr hr [address] or t wave abnormalitie qrs 91 qtc 418 Discharge Plan Discharge Patient Disposition: Home Clinical Impression: Vomiting Qualifiers: Vomiting type: unspecified Nausea presence: with nausea Qualified Code(s): R11.2 - Nausea with vomiting, unspecified Hypertension Qualifiers: Hypertension type: unspecified Qualified Code(s): I10 - Essential (primary) hypertension Condition: Stable Prescriptions: No Action diclofenac sodium [Voltaren Arthritis Pain] 1 % gel 2 g topical QID Qty: 100 RF: 2 folic acid 1 mg tablet 1 mg PO DAILY RF: 0 escitalopram oxalate [Lexapro] 10 mg Tablet 10 mg PO DAILY RF: 0 pantoprazole 40 mg Tablet,Delayed Release (Dr/Ec) 40 mg PO DAILY Qty: 30 RF: 0 amlodipine 10 mg tablet 10 mg PO DAILY Qty: 30 RF: 0 tamsulosin 0.4 mg Capsule 0.4 mg PO BEDTIME Qty: 30 RF: 0 gabapentin 100 mg Capsule 100 mg PO BID Qty: 60 RF: 0 metoprolol tartrate 25 mg tablet 25 mg PO DAILY Qty: 30 RF: 0 ondansetron 4 mg tablet,disintegrating 4 mg PO Q6H PRN (Reason: nausea and vomiting) Qty: 14 RF: 0 chlordiazepoxide HCl 10 mg capsule 10 mg PO Q6H PRN (Reason: withdrawal symptoms) Qty: 20 RF: 0 Discharge Orders: Discharge ED (Routine); Ordered 04/27/21 Ordered By: Beatrice Gu Discharge Diet: Advance as tolerated Discharge Activity: Resume usual activity Patient Instructions: Acute Nausea and Vomiting (ED) Coding Level of Care Code ED Teletray Operator for Ed Fwsamina Exam Comprehensive
--- NOTE | 2021-04-27 03:35 | ECG_ITS ---
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 [id number]
[2021-04-27] MEDS: labetalol 5 mg/mL SDV 20mL 10 MG IVP ×2 (03:48→04:45)
[2021-04-27] MEDS: LORazepam 2 mg/mL INJ 1 mL IVP (03:48)
[2021-04-27 03:57] LABS: Basophils % 0.4 %; Eosinophils # 0.3 10^3/uL (0.0-0.8); Eosinophils % 2.8 %; Hematocrit 31.7 % (42.0-52.0); Hemoglobin 10.1 g/dL (11.7-16.6); Lymphocytes # 1.6 10^3/uL (0.8-4.8); Lymphocytes % 16.3 %; Mean Corpuscular HGB Conc 31.9 g/dL (30.0-36.0); Mean Corpuscular Hemoglobin 30.4 pg (28.0-34.0); Mean Corpuscular Volume 95.5 fl (80-94); Mean Platelet Volume 10.7 fL (7.4-10.4); Monocytes # 0.6 10^3/uL (0.2-0.9); Monocytes % 5.9 %; Neutrophils # 7.36 10^3/uL (1.8-7.7); Neutrophils % 74.3 %; Nucleated Red Blood Cells % 0 %; Platelet Count 197 10^3/cmm (130-400); Red Blood Count 3.32 10^6/uL (4.1-5.3); Red Cell Distribution Width 19.8 % (12.1-15.1); White Blood Count 9.9 10^3/uL (4.0-10.0)
[2021-04-27 04:03] VITALS: BP 155/88; PULSE 77; RESP 18; O2SAT 98
[2021-04-27 04:25] LABS: Alanine Aminotransferase 8 U/L (0-41); Albumin Level 3.8 g/dL (3.5-5.2); Alkaline Phosphatase 149 IU/L (40-130); Anion Gap 18.5 (5-19); Aspartate Amino Transferase 16 U/L (0-40); Blood Urea Nitrogen 12 mg/dL (8-23); Carbon Dioxide 19 mmol/L (22-29); Chloride 102 mmol/L (98-107); Globulin 2.9 g/dL (1.3-4.6); Glomerular Filtration Rate 37.5 mL/min (90-130); Glucose 123 mg/dL (65-115); Osmolality Calculated 283 mOsm/kg (285-295); Potassium 3.5 mmol/L (3.5-5.1); Sodium 136 mmol/L (136-145); Total Bilirubin 0.4 mg/dL (0.15-1.2); Total Protein 6.7 g/dL (6.6-8.7)
[2021-04-27 04:29] LABS: Alcohol Level < 10 mg/dL (0-10)
[2021-04-27 04:40] VITALS: BP 162/100; PULSE 73; RESP 18; O2SAT 98
[2021-04-27 04:50] VITALS: BP 150/79; PULSE 75; RESP 20; O2SAT 98
[2021-04-27 04:56] VITALS: BP 150/79; PULSE 76; RESP 18; O2SAT 98
== END 2021-04-27 04:57 | disposition home or self-care (01) ==
PROVIDERS: Emergency Provider Emergency Medicine
DX: R11.2 Nausea with vomiting, unspecified (principal); I10 Essential (primary) hypertension; F17.210 Nicotine dependence, cigarettes, uncomplicated
CPT/HCPCS: 70450; 80053; 80307; 85025; 93005; 96374; 96375; 96376; 99284; J2060; J3490

== ENCOUNTER 2021-05-09 15:09 | Emergency (ER) | payer MEDICARE, MEDICAID, SELFPAY ==
[2021-05-09 15:06] VITALS: BP 95/52; PULSE 82; RESP 20; TEMP 36.5; O2SAT 100; BMI 24.1
[2021-05-09 15:58] VITALS: BP 116/69; PULSE 95; RESP 16; O2SAT 100
[2021-05-09 16:35] LABS: Basophils # 0.1 10^3/uL (0.0-0.1); Basophils % 0.5 %; Eosinophils % 0.1 %; Hematocrit 34.8 % (42.0-52.0); Hemoglobin 11.2 g/dL (11.7-16.6); Lymphocytes # 2.8 10^3/uL (0.8-4.8); Lymphocytes % 25.3 %; Mean Corpuscular HGB Conc 32.2 g/dL (30.0-36.0); Mean Corpuscular Hemoglobin 30.6 pg (28.0-34.0); Mean Corpuscular Volume 95.1 fl (80-94); Mean Platelet Volume 9.4 fL (7.4-10.4); Monocytes # 0.3 10^3/uL (0.2-0.9); Monocytes % 3.1 %; Neutrophils # 7.77 10^3/uL (1.8-7.7); Neutrophils % 70.6 %; Nucleated Red Blood Cells % 0 %; Platelet Count 628 10^3/cmm (130-400); Red Blood Count 3.66 10^6/uL (4.1-5.3); Red Cell Distribution Width 19.2 % (12.1-15.1)
[2021-05-09 16:53] LABS: Alanine Aminotransferase 7 U/L (0-41); Albumin Level 3.6 g/dL (3.5-5.2); Alkaline Phosphatase 154 IU/L (40-130); Anion Gap 22.6 (5-19); Aspartate Amino Transferase 27 U/L (0-40); Blood Urea Nitrogen 18 mg/dL (8-23); Calcium 8.4 mg/dL (8.5-10.5); Carbon Dioxide 17 mmol/L (22-29); Chloride 104 mmol/L (98-107); Globulin 3.9 g/dL (1.3-4.6); Glomerular Filtration Rate 22.5 mL/min (90-130); Glucose 123 mg/dL (65-115); Magnesium 1.9 mg/dL (1.7-2.3); Osmolality Calculated 293 mOsm/kg (285-295); Potassium 3.6 mmol/L (3.5-5.1); Sodium 140 mmol/L (136-145); Total Bilirubin 0.2 mg/dL (0.15-1.2); Total Protein 7.5 g/dL (6.6-8.7)
[2021-05-09 16:54] LABS: Alcohol Level < 10 mg/dL (0-10); Creatine Phosphokinase 682 U/L (39-308)
--- NOTE | 2021-05-09 19:27 | W.ED.WEAKNES ---
HPI - Weakness General: Chief complaint: Weakness Stated complaint: weakness Time Seen by Provider: 05/09/21 15:44 Source: patient, EMS and old records reviewed Mode of arrival: EMS History of Present Illness: HPI Narrative: 70 yr old male returns to the ER via ambulance with generalized weakness and confusion. Apparently his left for [place] 2 weeks ago, he has been at home alone, unable to charge his phone,- no one has been able to get in touch with him. Finally his was able to get the police to do a welfare check on him- they found him in poor condition, lethargic, confused, EMS was called to bring him to the ED. Long hx of alcohol abuse, reports last alcohol intake was >10 days ago. Denies fever, cough, nausea, vomiting, or headache. MD Complaint: generalized weakness and lack of energy Onset (ago): day(s) Associated symptoms: Reports confusion; Denies headache(s), nausea or vomiting Review of Systems General: Reports: ROS unobtainable due to mental status Resp: Denies: dyspnea, productive cough or non-productive cough GI: Denies: abdominal pain, nausea or vomiting Neuro: Reports: confusion; Denies: headache(s) Psych: Reports: memory loss PFSH ED PFSH: Medical History Alcohol abuse Arthritis Chronic low back pain Hypertension Long-term use of high-risk medication Continue to monitor use Seropositive rheumatoid arthritis Subdural hematoma Tobacco abuse counselled to quit smoking Surgical History History of appendectomy History of spinal surgery 25 years ago l4/5 fusion per pt Family History Father Stroke Other Hypertension Social History Smoking and tobacco status: current some day smoker cigarettes [ Other cigarette details: 1 PK WEEK ] Alcohol intake: former Desire information about substance/drug rehabilitation?: No Physical Exam Const: GENERAL APPEARANCE: disheveled, lethargic, ill appearing and frail appearing ORIENTATION/CONSCIOUSNESS: Yes awake, Yes oriented to person and Yes lethargic HENMT: COMMON NORMALS: normocephalic and atraumatic HEAD & SCALP: normocephalic and atraumatic FACE & SINUS: normal facial exam and face symmetric Eye: COMMON NORMALS: Equal, round and reactive pupils present, EOMs intact bilaterally and conjunctivae normal CONJUNCTIVA: Yes conjunctivae normal PUPIL: Yes Equal, round and reactive pupils present Resp: COMMON NORMALS: normal respiratory effort, No retractions and No use of accessory muscles Cardio: COMMON NORMALS: regular rhythm JUGULAR VENOUS DISTENTION: no JVD RHYTHM: regular rhythm GI: COMMON NORMALS: Normal to inspection, nondistended, normoactive bowel sounds present, Soft to palpation and non-tender PALPATION: Yes Soft to palpation Extremity: COMMON NORMALS: no clubbing, cyanosis or edema Neuro: COMMON NORMALS: moves all extremities, no focal motor deficits and no sensory deficits noted SENSORIUM/ORIENTATION: Yes oriented to person and Yes lethargic GAIT: Yes Normal gait present MOTOR EXAM: no tremor noted, Motor fasciculations not present and Motor abnormalities not present Skin: COMMON NORMALS: no rashes or lesions noted and no wounds GENERAL SKIN EXAM: no rashes or lesions noted and dry skin Course Vital Signs: Vital signs: Vital Signs Temperature 97.7 F 05/09/21 15:06 Pulse Rate 95 05/09/21 15:58 Respiratory Rate 16 05/09/21 15:58 Blood Pressure 116/69 05/09/21 15:58 Pulse Oximetry 100 05/09/21 15:58 MDM - Weakness MDM Narrative: Medical decision making narrative: 70 year old male with acute on chronic kidney disease, debility, and failure to thrive. Has had numerous ED visits this month for similar issues. Alcohol level <10, and records show that it has been negative on the last 4 ER visits which is consistent with his statement that he has not drank in 10+ days. CK mildy elevated. Unable to get IV access, and patient resistant to further attempts. PO hydration, regular diet, I spoke with his in [place]; the patient's son will come and pick him up in the morning, she requests that we not discharge him until then because he is unable to care for himself. The patient is agreeable with the plan to stay here until his Son picks him up in the morning. Will continue to encourage PO intake and monitor for any acute changes. Differential Diagnosis: Weakness Differential Diagnosis: Likely anemia, hypoglycemia, hypothyroidism, rhabdomyolysis, sepsis and dehydration Medical Records: Attestation: I reviewed the patient's medical records. Lab Data: Attestation: I reviewed the patient's lab results. Labs: Lab Results 05/09/21 05/09/21 05/09/21 16:25 16:25 18:50 WBC 11.0 10^3/uL H 10 ^3/uL (4.0-10.0) RBC 3.66 10^6/uL L 10 ^6/uL (4.1-5.3) Hgb 11.2 g/dL L g/dL (11.7-16.6) Hct 34.8 % L % (42.0-52.0) MCV 95.1 fl H fl (80-94) MCH 30.6 pg pg (28.0-34.0) MCHC 32.2 g/dL g/dL (30.0-36.0) RDW 19.2 % H % (12.1-15.1) Plt Count 628 10^3/cmm H 10 ^3/cmm (130-400) MPV 9.4 fL fL (7.4-10.4) Neut % (Auto) 70.6 % % Lymph % (Auto) 25.3 % % [place] % (Auto) 3.1 % % Eos % (Auto) 0.1 % % Baso % (Auto) 0.5 % % Neut # (Auto) 7.77 10^3/uL H 10 ^3/uL (1.8-7.7) Lymph # (Auto) 2.8 10^3/uL 10^3/ uL (0.8-4.8) Conway # (Auto) 0.3 10^3/uL 10^3/ uL (0.2-0.9) Eos # (Auto) 0.0 10^3/uL 10^3/ uL (0.0-0.8) Baso # (Auto) 0.1 10^3/uL 10^3/ uL (0.0-0.1) Nucleated RBC % (a uto) 0 % % Nucleated RBCs # 0.0 /100WBC /100W BC Sodium 140 mmol/L mmol/L (136-145) Potassium 3.6 mmol/L mmol/L (3.5-5.1) Chloride 104 mmol/L mmol/L (98-107) Carbon Dioxide 17 mmol/L L mmol/ L (22-29) Anion Gap 22.6 H (5-19) BUN 18 mg/dL mg/dL (8-23) Creatinine 2.8 mg/dL H mg/dL (0.7-1.2) GFR Calculation 22.5 mL/min L mL/ min (90-130) Glucose 123 mg/dL H mg/dL (65-115) Calculated Osmolal ity 293 mOsm/kg mOsm/ kg (285-295) Calcium 8.4 mg/dL L mg/dL (8.5-10.5) Magnesium 1.9 mg/dL mg/dL (1.7-2.3) Total Bilirubin 0.2 mg/dL mg/dL (0.15-1.2) AST 27 U/L U/L (0-40) ALT 7 U/L U/L (0-41) Alkaline Phosphata se 154 IU/L H IU/L (40-130) Creatine Kinase 682 U/L H* U/L (39-308) Total Protein 7.5 g/dL g/dL (6.6-8.7) Albumin 3.6 g/dL g/dL (3.5-5.2) Globulin 3.9 g/dL g/dL (1.3-4.6) Urine Color Yellow (Yellow) Urine Appearance Clear (CLEAR) Urine pH 5 (5-7) Ur Specific Gravit y 1.015 (1.005-1.030) Urine Protein Neg (Negative) Urine Glucose (UA) Norm (Normal) Urine Ketones 2+ H (Negative) Urine Blood Neg (Negative) Urine Nitrate Negative (Negative) Urine Bilirubin Neg (Negative) Urine Urobilinogen Norm mg/dL mg/dL (Negative) Ur Leukocyte Brittny ase Negative (Negative) Ethyl Alcohol < 10 mg/dL mg/dL (0-10) Discharge Plan Discharge Clinical Impression: Dehydration, Unable to care for self Acute on chronic kidney failure Qualifiers: Acute renal failure type: unspecified Chronic kidney disease stage: unspecified stage Qualified Code(s): N17.9 - Acute kidney failure, unspecified Rhabdomyolysis Qualifiers: Rhabdomyolysis type: non-traumatic Qualified Code(s): M62.82 - Rhabdomyolysis Condition: Stable Prescriptions: No Action diclofenac sodium [Voltaren Arthritis Pain] 1 % gel 2 g topical QID Qty: 100 RF: 2 folic acid 1 mg tablet 1 mg PO DAILY RF: 0 escitalopram oxalate [Lexapro] 10 mg Tablet 10 mg PO DAILY RF: 0 pantoprazole 40 mg Tablet,Delayed Release (Dr/Ec) 40 mg PO DAILY Qty: 30 RF: 0 amlodipine 10 mg tablet 10 mg PO DAILY Qty: 30 RF: 0 tamsulosin 0.4 mg Capsule 0.4 mg PO BEDTIME Qty: 30 RF: 0 gabapentin 100 mg Capsule 100 mg PO BID Qty: 60 RF: 0 metoprolol tartrate 25 mg tablet 25 mg PO DAILY Qty: 30 RF: 0 ondansetron 4 mg tablet,disintegrating 4 mg PO Q6H PRN (Reason: nausea and vomiting) Qty: 14 RF: 0 chlordiazepoxide HCl 10 mg capsule 10 mg PO Q6H PRN (Reason: withdrawal symptoms) Qty: 20 RF: 0 Discharge Diet: Advance as tolerated Discharge Activity: Increase activity as tolerated Coding Level of Care Code ED Telemetry Rn for [place] Fwd Exam Comprehensive
[2021-05-09 19:37] LABS: Add Urine Microscopic? NO; Charge for UA Resulting for Rev
[2021-05-09 19:39] LABS: Bilirubin Urine Neg (Negative); Blood Urine Neg (Negative); Glucose Urine UA Norm (Normal); Ketones Urine 2+ (Negative); Leukocyte Esterase Urine Negative (Negative); Nitrate Urine Negative (Negative); Protein Urine Neg (Negative); Specific Gravity, Urine 1.015 (1.005-1.030); Urine Appearance Clear (CLEAR); Urine Color Yellow (Yellow); Urobilinogen Urine Norm (Negative); pH Urine 5 (5-7)
[2021-05-10] MEDS: ALPRAZolam 0.5 mg Tablet PO (00:06)
== END 2021-05-10 13:50 | disposition home or self-care (01) ==
PROVIDERS: Nurse Practitioner Family; Emergency Provider Family Medicine
DX: I12.9 Hypertensive chronic kidney disease with stage 1 through stage 4 chronic kidney disease, or unspecified chronic kidney disease (principal); N18.9 Chronic kidney disease, unspecified; M62.82 Rhabdomyolysis; E86.0 Dehydration; Z74.2 Need for assistance at home and no other household member able to render care; F17.210 Nicotine dependence, cigarettes, uncomplicated
CPT/HCPCS: 36415; 80053; 80307; 81003; 82550; 83735; 85025; 99283